=== PATIENT | female | born 1940 | race Caucasian/White ===

== ENCOUNTER 2017-07-26 08:00 | Outpatient (CLI) | payer MEDICARE, OTHER ==
[2017-07-26 14:09] LABS: BASOPHILS % (AUTO) 0.9 %; EOSINOPHILS # (AUTO) 0.1 10^3/uL (0.0-0.7); HGB - HEMOGLOBIN 12.8 g/dL (12.0-16.0); LYMPHOCYTES # (AUTO) 1.6 10^3/uL (1.5-3.5); LYMPHOCYTES % (AUTO) 37.1 %; MEAN CORPUSCULAR HEMOGLOBIN 28.2 pg (27.0-31.0); MEAN CORPUSCULAR HGB CONC 32.8 g/dL (32.0-36.0); MEAN CORPUSCULAR VOLUME 85.9 fL (81.0-99.0); MONOCYTES # (AUTO) 0.4 10^3/uL (0.0-1.0); MONOCYTES % (AUTO) 9.7 %; NEUTROPHILS # (AUTO) 2.2 10^3/uL (1.5-6.6); NEUTROPHILS % (AUTO) 49.3 %; NUCLEATED RED BLOOD CELLS AUTO 0.1 /100WBC; RED BLOOD COUNT 4.54 10^6/uL (4.20-5.40); RED CELL DISTRIBUTION WIDTH 14.2 % (12.0-15.0); UNCORRECTED WHITE BLOOD COUNT 4.4 x10^3/uL; WHITE BLOOD COUNT 4.4 x10^3/uL (4.8-10.8)
[2017-07-26 14:37] LABS: ALBUMIN/GLOBULIN RATIO 1.3 (1.0-2.2); BILIRUBIN,TOTAL 0.7 mg/dL (0.2-1.0); BUN - BLOOD UREA NITROGEN 14 mg/dL (6-20); CALCIUM 9.5 mg/dL (8.5-10.3); CARBON DIOXIDE - CO2 28 mmol/L (21-32); CHLORIDE 102 mmol/L (101-111); CHOL/HDL RATIO 2.8 (<4.4); CHOLESTEROL 209 mg/dL; GFR - MDRD 54 (>89); GLUCOSE 83 mg/dL (70-100); HDL CHOLESTEROL 76 mg/dL; LDL/HDL RATIO 1.5 (<4.4); POTASSIUM 4.1 mmol/L (3.5-5.0); SODIUM 139 mmol/L (135-145); TOTAL PROTEIN 6.9 g/dL (6.7-8.2); TRIGLYCERIDES 94 mg/dL; VLDL CHOLESTEROL 19 mg/dL
== END 2017-07-26 08:01 | disposition home or self-care (01) ==
LOC: LAB.R 08:00
PROVIDERS: ATTEND Internal Medicine
DX: Z79.899 Other long term (current) drug therapy (principal); M19.90 Unspecified osteoarthritis, unspecified site; J44.9 Chronic obstructive pulmonary disease, unspecified; E78.5 Hyperlipidemia, unspecified
CPT/HCPCS: 80053; 80061; 84443; 85025

== ENCOUNTER 2017-08-10 16:11 | Outpatient (CLI) | payer MEDICARE, OTHER ==
--- NOTE | 2017-08-21 13:44 | Mammography Report ---
DIGITAL SCREENING MAMMOGRAM: 08/10/2017 CLINICAL INDICATION: A 77-year-old with history of bilateral benign biopsies, for new baseline. The patient's previous mammograms in [place] have been purged. This will serve as a new baseline. TECHNIQUE: Routine CC and MLO projections were obtained of the breasts. FINDINGS: The breasts demonstrate heterogeneously dense fibroglandular parenchyma bilaterally. Coars e and punctate, typically benign calcifications are present. No suspicious masses, clustered microcal cifications, or regions of architectural distortion are identified. IMPRESSION: BENIGN FINDINGS RECOMMENDATION: ROUTINE ANNUAL SCREENING UNLESS OTHERWISE CLINICALLY INDICATED. BIRADS CATEGORY 2-BENIGN FINDINGS. STANDARD QUALIFYING STATEMENTS 1. This examination was reviewed with the aid of Computer-Aided Detection (CAD). 2. A negative or benign imaging report should not delay biopsy if clinically suspicious findings are present. Consider surgical consultation if warranted. More than 5% of cancers are not identified by i maging. 3. Dense breasts may obscure an underlying neoplasm. JOB #: [id number] EXT JOB #:[id number]
== END 2017-08-10 16:12 | disposition home or self-care (01) ==
LOC: DI 16:11
PROVIDERS: ATTEND Internal Medicine
DX: Z12.31 Encounter for screening mammogram for malignant neoplasm of breast (principal)
CPT/HCPCS: 77067

== ENCOUNTER 2018-04-03 13:45 | Outpatient (CLI) | payer MEDICARE, OTHER ==
[2018-04-03 14:32] LABS: CALCIUM 9.2 mg/dL (8.5-10.3); CREATININE 1.1 mg/dL (0.4-1.0)
== END 2018-04-03 13:46 | disposition home or self-care (01) ==
LOC: LAB 13:45
PROVIDERS: ATTEND Internal Medicine Cardiovascular Disease
DX: R06.02 Shortness of breath (principal); J44.9 Chronic obstructive pulmonary disease, unspecified
CPT/HCPCS: 36415; 80048; 83880

== ENCOUNTER 2018-05-03 14:50 | Outpatient (CLI) | payer MEDICARE, OTHER ==
[2018-05-03 16:21] LABS: BASOPHILS % (AUTO) 0.9 %; EOSINOPHILS % (AUTO) 0.9 %; HGB - HEMOGLOBIN 12.7 g/dL (12.0-16.0); LYMPHOCYTES # (AUTO) 1.2 10^3/uL (1.5-3.5); LYMPHOCYTES % (AUTO) 26.2 %; MEAN CORPUSCULAR HGB CONC 32.7 g/dL (32.0-36.0); MEAN CORPUSCULAR VOLUME 85.8 fL (81.0-99.0); MEAN PLATELET VOLUME 7.6 fL (7.9-10.8); MONOCYTES # (AUTO) 0.4 10^3/uL (0.0-1.0); MONOCYTES % (AUTO) 7.8 %; NEUTROPHILS % (AUTO) 64.2 %; PLT - PLATELET COUNT 269 10^3/uL (130-450); RED BLOOD COUNT 4.54 10^6/uL (4.20-5.40); RED CELL DISTRIBUTION WIDTH 15.5 % (12.0-15.0); WHITE BLOOD COUNT 4.7 x10^3/uL (4.8-10.8)
[2018-05-03 16:30] LABS: ALBUMIN 3.7 g/dL (3.2-5.5); ALBUMIN/GLOBULIN RATIO 1.1 (1.0-2.2); BILIRUBIN,TOTAL 0.8 mg/dL (0.2-1.0); CALCIUM 9.8 mg/dL (8.5-10.3); CREATININE 1.2 mg/dL (0.4-1.0); TOTAL PROTEIN 7.1 g/dL (6.7-8.2)
== END 2018-05-03 14:51 | disposition home or self-care (01) ==
LOC: LAB.R 14:50
PROVIDERS: ATTEND Internal Medicine
DX: R10.13 Epigastric pain (principal)
CPT/HCPCS: 80053; 83690; 85025

== ENCOUNTER 2018-08-13 08:00 | Outpatient (CLI) | payer MEDICARE, OTHER ==
[2018-08-13 13:58] LABS: BASOPHILS % (AUTO) 1.2 %; EOSINOPHILS # (AUTO) 0.1 10^3/uL (0.0-0.7); EOSINOPHILS % (AUTO) 2.1 %; HGB - HEMOGLOBIN 13.2 g/dL (12.0-16.0); LYMPHOCYTES # (AUTO) 1.3 10^3/uL (1.5-3.5); LYMPHOCYTES % (AUTO) 31.1 %; MEAN CORPUSCULAR HEMOGLOBIN 28.7 pg (27.0-31.0); MEAN CORPUSCULAR HGB CONC 33.3 g/dL (32.0-36.0); MEAN PLATELET VOLUME 7.7 fL (7.9-10.8); MONOCYTES # (AUTO) 0.4 10^3/uL (0.0-1.0); MONOCYTES % (AUTO) 8.9 %; NEUTROPHILS # (AUTO) 2.3 10^3/uL (1.5-6.6); NEUTROPHILS % (AUTO) 56.7 %; PLT - PLATELET COUNT 241 10^3/uL (130-450); RED CELL DISTRIBUTION WIDTH 15.3 % (12.0-15.0); WHITE BLOOD COUNT 4.1 x10^3/uL (4.8-10.8)
[2018-08-13 14:13] LABS: ALBUMIN 3.9 g/dL (3.2-5.5); ALBUMIN/GLOBULIN RATIO 1.3 (1.0-2.2); ALKALINE PHOSPHATASE 54 IU/L (42-121); ALT ALANINE AMINOTRANSFERASE 26 IU/L (10-60); AST ASPARTATE AMINOTRANSFERASE 22 IU/L (10-42); BILIRUBIN,TOTAL 0.9 mg/dL (0.2-1.0); BUN - BLOOD UREA NITROGEN 12 mg/dL (6-20); CALCIUM 9.1 mg/dL (8.5-10.3); CARBON DIOXIDE - CO2 29 mmol/L (21-32); CHLORIDE 98 mmol/L (101-111); CHOL/HDL RATIO 2.8 (<4.4); CHOLESTEROL 215 mg/dL; CREATININE 0.9 mg/dL (0.4-1.0); GFR - MDRD 60 (>89); GLUCOSE 83 mg/dL (70-100); HDL CHOLESTEROL 78 mg/dL; LDL CHOLESTEROL,CALCULATED 120 mg/dL; LDL/HDL RATIO 1.5 (<4.4); SODIUM 134 mmol/L (135-145); VLDL CHOLESTEROL 17 mg/dL
== END 2018-08-13 08:01 | disposition home or self-care (01) ==
LOC: LAB.R 08:00
PROVIDERS: ATTEND Nurse Practitioner Primary Care
DX: Z79.899 Other long term (current) drug therapy (principal); M25.50 Pain in unspecified joint; E78.5 Hyperlipidemia, unspecified
CPT/HCPCS: 80053; 80061; 83721; 84443; 85025

== ENCOUNTER 2018-10-16 10:04 | Outpatient (CLI) | payer MEDICARE, OTHER ==
[2018-10-16 11:10] LABS: ALBUMIN 4.2 g/dL (3.2-5.5); ALBUMIN/GLOBULIN RATIO 1.4 (1.0-2.2); ALKALINE PHOSPHATASE 60 IU/L (42-121); ALT ALANINE AMINOTRANSFERASE 32 IU/L (10-60); AST ASPARTATE AMINOTRANSFERASE 32 IU/L (10-42); BUN - BLOOD UREA NITROGEN 17 mg/dL (6-20); CALCIUM 9.3 mg/dL (8.5-10.3); CARBON DIOXIDE - CO2 29 mmol/L (21-32); CHLORIDE 96 mmol/L (101-111); CHOL/HDL RATIO 2.5 (<4.4); CHOLESTEROL 205 mg/dL; GFR - MDRD 53 (>89); GLUCOSE 103 mg/dL (70-100); HDL CHOLESTEROL 83 mg/dL; LDL CHOLESTEROL,CALCULATED 106 mg/dL; LDL/HDL RATIO 1.3 (<4.4); SODIUM 133 mmol/L (135-145); TOTAL PROTEIN 7.2 g/dL (6.7-8.2); VLDL CHOLESTEROL 16 mg/dL
== END 2018-10-16 10:05 | disposition home or self-care (01) ==
LOC: LAB 10:04
PROVIDERS: ATTEND Internal Medicine Cardiovascular Disease
DX: I50.32 Chronic diastolic (congestive) heart failure (principal); E78.5 Hyperlipidemia, unspecified
CPT/HCPCS: 36415; 80053; 80061; 81599; 82172; 83721; 83880

== ENCOUNTER 2018-11-08 14:20 | Outpatient (CLI) | payer MEDICARE, OTHER ==
[2018-11-08 14:56] LABS: BUN - BLOOD UREA NITROGEN 12 mg/dL (6-20); CALCIUM 9.3 mg/dL (8.5-10.3); CARBON DIOXIDE - CO2 26 mmol/L (21-32); CHLORIDE 99 mmol/L (101-111); CHOL/HDL RATIO 2.4 (<4.4); CHOLESTEROL 217 mg/dL; GFR - MDRD 53 (>89); GLUCOSE 124 mg/dL (70-100); HDL CHOLESTEROL 92 mg/dL; LDL CHOLESTEROL,CALCULATED 100 mg/dL; LDL/HDL RATIO 1.1 (<4.4); SODIUM 134 mmol/L (135-145); VLDL CHOLESTEROL 25 mg/dL
== END 2018-11-08 14:21 | disposition home or self-care (01) ==
LOC: LAB 14:20
PROVIDERS: ATTEND Internal Medicine Cardiovascular Disease
DX: I50.32 Chronic diastolic (congestive) heart failure (principal); E78.5 Hyperlipidemia, unspecified
CPT/HCPCS: 36415; 80048; 80061; 81599; 82172; 83721; 83880

== ENCOUNTER 2019-04-02 13:08 | Outpatient (CLI) | payer MEDICARE, OTHER ==
--- NOTE | 2019-04-03 15:19 | Mammography Report ---
Reason: SCREENING MAMMOGRAM Procedure Date: 04/02/2019 Accession Number: [id number] / [id number] Procedure: ROHIT - Screening Mammo w/Syd CPT Code: FULL RESULT: EXAM: Screening Mammo w/Syd DATE: 04/02/2019 1:47 PM CLINICAL HISTORY: Routine screening TECHNIQUE: (B) - Bilateral CC and MLO views were obtained. COMPARISON: 08/10/2017 PARENCHYMAL PATTERN: (VD) - The breasts demonstrate extremely dense parenchyma bilaterally, limiting the sensitivity of mammography. FINDINGS: No significant interval change. There are no suspicious masses, calcifications, or areas of distortion. Scattered benign calcifications are unchanged. IMPRESSION: Negative examination. BI-RADS category 1. RECOMMENDATION: (ANNUAL) - Recommend routine annual screening mammography. BI-RADS CATEGORY: (1) - Negative. STANDARD QUALIFYING STATEMENTS: 1. This examination was not reviewed with the aid of Computer-Aided Detection (CAD). 2. A negative or benign imaging report should not preclude biopsy if clinically suspicious findings are present. 3. Dense breasts may obscure an underlying neoplasm. 4. This examination was reviewed with the aid of 3D breast imaging (tomosynthesis).
== END 2019-04-02 13:09 | disposition home or self-care (01) ==
LOC: DI 13:08
PROVIDERS: ATTEND Internal Medicine
DX: Z12.31 Encounter for screening mammogram for malignant neoplasm of breast (principal)
CPT/HCPCS: 77063; 77067

== ENCOUNTER 2019-07-05 05:48 | Emergency (ER) | payer MEDICARE, OTHER ==
--- NOTE | 2019-07-05 05:57 | ED Physician Documentation ---
History of Present Illness - Stated complaint Stated Complaint: FACIAL SWELLING - History obtained from History obtained from: Patient - History of Present Illness Timing: Yesterday Improved by: no ameliorating factors Worsened by: no clear exacerbating factors, although patient suspects her symptoms are due to a reaction to vaseline she has been applying topically - Additonal information Additional information: patient underwent facial cosmetic surgery 2 days ago which, per patient, involved face lift and chemical laser peel. presents to ED due to painless swelling of lips and around both eyes since yesterday afternoon. patient was prescribed several oral and topical medications post-operatively; she does not know if she has taken/applied any of these medications before. she is adamant that the swelling is due to topical application of vaseline. she denies any sensation of swelling in mouth including tongue and throat. denies dyspnea. she says she had similar problem with previous facial cosmetic surgery but has no recollection regarding how this was treated (including cannot recall if she was seen in an emergency department, if she was admitted to a hospital, and if she was given any medical treatment or attention for the symptoms). Review of Systems Constitutional: reports: Reviewed and negative Eyes: reports: Reviewed and negative Ears: reports: Reviewed and negative Throat: denies: Sore throat Respiratory: reports: Reviewed and negative GI: reports: Reviewed and negative PD PAST MEDICAL HISTORY - Past Medical History Cardiovascular: High cholesterol Respiratory: COPD - Past Surgical History /OPHTHALMIC AIDE: Hysterectomy - Present Medications Home Medications: Ambulatory Orders Medication Instructions Recorded Confirmed Atorvastatin Calcium [Lipitor] 40 mg PO DAILY 10/09/14 10/09/14 dexAMETHasone [Decadron] 4 mg PO DAILY #5 tablet 10/10/14 traMADol [Ultram] 50 mg PO Q4-6H PRN #25 tablet 10/10/14 - Allergies Allergies/Adverse Reactions: Allergies Allergy/AdvReac Type Severity Reaction Status Date / Time No Known Drug Allergies Allergy Verified 07/05/19 05:59 - Social History Does the pt smoke?: No Smoking Status: Never smoker Does the pt drink ETOH?: No Does the pt have substance abuse?: No - Immunizations Immunizations are current?: Yes PD ED PE NORMAL - Vitals Vital signs reviewed: Yes - General General: Alert and oriented X 3, No acute distress, Well developed/nourished - HEENT HEENT: Moist mucous membranes, Pharynx benign, Other (widely patent airway without edema/swelling of tongue or oropharynx except for lips) - Cardiac Cardiac: RRR, No murmur - Respiratory Respiratory: No respiratory distress, Clear bilaterally PD ED PE EXPANDED - HEENT HEENT: Other (Bilateral pre/post auricular incision (surgical) sites are C/D/I with sutures in place and wound edges well approximated. No surrounding erythema, no discharge. There is generalized and diffuse facial erythema that is flat, c/w recent facial chemical peel procedure. There is moderate swelling of lips and bilateral periorbits ) Results - Vitals Vitals: Vital Signs - 24 hr 07/05/19 07/05/19 07/05/19 05:54 05:59 06:47 Temperature 36.7 C Heart Rate 77 70 72 Respiratory 17 17 17 Rate Blood Pressure 180/98 H O2 Saturation 94 95 96 Oxygen O2 Source Room air PD MEDICAL DECISION MAKING - ED course Complexity details: considered differential, d/w patient ED course: Patient had face lift and chemical laser peel (per patient) two days ago, presents due to swelling of lips and bilateral periorbits. Denies dyspnea, wheezing, sensation of tongue or intraoral/posterior oropharynx (throat) constriction/tightness/swelling. Exam is not s/o infectious complications. I explained to patient that I will contact her plastic surgeon to discuss treatment options. She was initially agreeable to this and I contacted the after-hours service for her surgeon and was told to expect a response within no more than 30 minutes. Patient was updated with this information and she insisted on leaving immediately and would not engage in discussion regarding risks/benefits of leaving before completion of ED evaluation and treatment. Departure - Departure Disposition: 07 Against Medical Advice Clinical Impression: Allergic reaction Qualifiers: Encounter type: initial encounter Qualified Code(s): T78.40XA - Allergy, unspecified, initial encounter Condition: Stable Instructions: ED Allergic Reaction General Other, ED Angioedema Discharge Date/Time: 07/05/19 07:08
[2019-07-05 05:59] VITALS: BP 180/98
== END 2019-07-05 07:08 | disposition left against medical advice (07) ==
LOC: ED 05:48
DX: T78.40XA Allergy, unspecified, initial encounter (principal); Z53.20 Procedure and treatment not carried out because of patient's decision for unspecified reasons
CPT/HCPCS: 99281; 99283

== ENCOUNTER 2019-12-31 08:08 | Emergency (ER) | payer MEDICARE, OTHER ==
[2019-12-31 08:18] VITALS: BP 165/92
--- NOTE | 2019-12-31 08:37 | ED Physician Documentation ---
PD HPI OPHTHO - Stated complaint Stated Complaint: VISION CHGS - Chief complaint Chief Complaint: Heent - History obtained from History obtained from: Patient - History of Present Illness Timing - onset: Today Timing - duration: Minutes (1) Timing - details: Abrupt onset Location: Right Quality / character: Aching Associated symptoms: Decreased vision (She states she had a brief episode of slightly blurred vision with a feeling of pressure in her eye this morning lasting just a minute or 2. She denied any loss of vision in any consistent pain or headache. She is recently diagnosed with a TIA to 3 weeks ago with loss of vision in one eye for 5 or 10 minutes. She had a work-up showing a 80% carotid stenosis and is due for a carotid artery stent this coming Monday. She is started on Plavix 2-1/2 weeks ago. She was seen by an home designer yesterday with eye evaluation including dilatation and reportedly had a normal exam. She was feeling okay after that visit and just noticed some slight blurring of the vision this morning. No other symptoms with it.). No: Redness, Swelling, Photophobia, Double vision, Loss of vision Similar symptoms before: Has not had sx before (had loss of vision briefly in eye previously, but not just the blurred like today.) Review of Systems Eyes: reports: Decreased vision, Discharge. denies: Loss of vision, Photophobia Nose: denies: Rhinorrhea / runny nose, Congestion Throat: denies: Sore throat Respiratory: denies: Cough Neurologic: denies: Focal weakness, Numbness, Difficulty speaking, Near syncope, Confused, Altered mental status, Headache PD PAST MEDICAL HISTORY - Past Medical History Past Medical History: Yes Cardiovascular: High cholesterol Respiratory: COPD Neuro: TIA Endocrine/Autoimmune: None GI: None SURVEY METHODOLOGIST: None : None HEENT: None Psych: None Musculoskeletal: None Derm: None Other Past Medical History: carotid stenosis - Past Surgical History Past Surgical History: Yes /SURVEY METHODOLOGIST: Hysterectomy - Present Medications Home Medications: Ambulatory Orders Medication Instructions Recorded Confirmed Atorvastatin Calcium [Lipitor] 40 mg PO DAILY 10/09/14 10/09/14 dexAMETHasone [Decadron] 4 mg PO DAILY #5 tablet 10/10/14 traMADol [Ultram] 50 mg PO Q4-6H PRN #25 tablet 10/10/14 - Allergies Allergies/Adverse Reactions: Allergies Allergy/AdvReac Type Severity Reaction Status Date / Time No Known Drug Allergies Allergy Verified 12/31/19 08:12 - Social History Does the pt smoke?: No Smoking Status: Never smoker Does the pt drink ETOH?: No Does the pt have substance abuse?: No - Immunizations Immunizations are current?: Yes - POLST Patient has POLST: No PD ED PE NORMAL - Vitals Vital signs reviewed: Yes - General General: Alert and oriented X 3, No acute distress, Well developed/nourished - HEENT HEENT: PERRL, EOMI, Other (anterior and posterior chambers appear normal on ophthalmologic exam. IOP is 12. 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 eye appears normal. no other neuro symptoms. Presume eye process. IOP is normal. Normal posterior chamber. ), d/w patient Departure - Departure Disposition: Home, Self Care Clinical Impression: Visual disturbance Condition: Stable Record reviewed to determine appropriate education?: Yes Follow-Up: Katerina Sarah MD [Primary Care Provider] - Comments: Your eye exam including intraocular pressures appear normal at this time. It does not seem to be any significant cause for the eye symptoms earlier today. Continue usual medications. Stay well-hydrated. Recheck if recurrent symptoms otherwise follow-up as planned this Monday. Discharge Date/Time: 12/31/19 09:03
== END 2019-12-31 09:03 | disposition home or self-care (01) ==
LOC: ED 08:08
DX: H53.8 Other visual disturbances (principal); I65.29 Occlusion and stenosis of unspecified carotid artery; Z86.73 Personal history of transient ischemic attack (TIA), and cerebral infarction without residual deficits; Z79.02 Long term (current) use of antithrombotics/antiplatelets
CPT/HCPCS: 99281; 99282

== ENCOUNTER 2020-05-14 12:00 | Outpatient (CLI) | payer MEDICARE, OTHER ==
[2020-05-14] MEDS ORDERED: IOVERSOL 320 100 ML VIAL IVP ONE ×2 (12:10→13:24)
[2020-05-14 12:34] LABS: CREATININE 1.2 mg/dL (0.4-1.0)
--- NOTE | 2020-05-14 13:45 | CT Report ---
PROCEDURE: ANGIO CHEST W/WO INDICATIONS: PLEURIRIC CHEST PAIN CONTRAST: IV CONTRAST: Optiray 320 ml: 61 PO CONTRAST: *NO PO CONTRAST TECHNIQUE: After the administration of intravenous contrast, 2 mm thick sections acquired from the pulmonary api darnell to the posterior costophrenic angles. 3-dimensional maximum intensity projection (MIP) coronal a nd sagittal reformats were then acquired through the thorax. For radiation dose reduction, the follow ing was used: automated exposure control, adjustment of mA and/or kV according to patient size. COMPARISON: CT chest 04/30/2018, 03/25/2019, 01/31/2020, 04/27/2020 FINDINGS: Image quality: Excellent. The main pulmonary trunk is normal in size. There is no pulmonary embolism. The heart is normal in size. There is no pericardial effusion. No findings of right heart strain. The re is four-vessel calcified coronary atherosclerosis with noncalcified plaque present as well. Nonaneurysmal thoracic aorta with diffuse atherosclerotic calcification. No threshold enlarged thoracic lymph node by CT size criteria. Moderate apical predominant centrilobular and paraseptal emphysematous changes are again noted. No si gnificant change in appearance of suspicious spiculated right upper lobe nodule with surrounding grou ndglass opacity. Scattered calcified granulomata are also unchanged. New from the prior study, there is a mildly displaced rib fracture on the left anteriorly, correspond ing in location to the patient's reported palpable area of chest pain. There is a small surrounding h ematoma. There is no other acute osseous lesion. No suspicious or lytic/blastic osseous finding. Limited evaluation of the upper abdomen due to the early angiographic phase of contrast. No acute fin ding identified. IMPRESSION: No pulmonary embolism. Mildly displaced anterior left rib fracture with adjacent hematoma. Unchanged suspicious right upper lobe nodule. Biopsy recommended if not already performed. Reviewed by: Favio Olson MD on 05/14/2020 1:44 PM PDT Approved by: Favio Olson MD on 05/14/2020 1:44 PM PDT Station ID: [id number]
== END 2020-05-14 12:01 | disposition home or self-care (01) ==
LOC: DI 12:00
PROVIDERS: ATTEND Internal Medicine
DX: R07.81 Pleurodynia (principal); R06.00 Dyspnea, unspecified; S22.32XA Fracture of one rib, left side, initial encounter for closed fracture; R91.1 Solitary pulmonary nodule
CPT/HCPCS: 36415; 71275; 82565; Q9967

== ENCOUNTER 2020-06-09 15:49 | Outpatient (CLI) | payer MEDICARE, OTHER ==
[2020-06-09 16:15] LABS: CALCIUM 9.4 mg/dL (8.5-10.3); CREATININE 1.5 mg/dL (0.4-1.0)
--- NOTE | 2020-06-09 17:49 | CT Report ---
PROCEDURE: CHEST WO INDICATIONS: PULMONARY NODULE TECHNIQUE: Noncontrast 5 mm thick sections acquired from the pulmonary apices to the posterior costophrenic angl es. 7 mm thick coronal and sagittal MIP reformats were then acquired. For radiation dose reduction, the following was used: automated exposure control, adjustment of mA and/or kV according to patient size. COMPARISON: Prior CT chest angiogram 05/14/2020 reviewed FINDINGS: Image quality: Excellent. Lungs and pleura: No acute air space opacities. However, again noted at the anterior left upper lob e is a spiculated masslike structure present in the setting of severe emphysematous change and within appearance suggestive of a primary bronchogenic carcinoma. This is best seen on current study imagin g CT series 4 image 94 and also on the prior CT imaging CT series 6 image 90. More inferiorly within the right mid lung are several calcified granulomas within the No pleural effusions or pneumothorax. Central and peripheral airways are patent and normal in caliber. Mediastinum: Heart size is normal. No pericardial effusion. No mediastinal adenopathy by size crit eria. Thoracic aorta and central pulmonary arteries are normal in size. Esophagus is normal in sharif teofilo. No hiatal hernia. Several right hilar calcified lymph nodes incidentally noted in the setting of calcified granulomas within the right lung. Bones and chest wall: No suspicious bony lesions. No vertebral body compression fractures. No axil rosanna or supraclavicular adenopathy by size criteria. The thyroid is normal in size. Abdomen: Visualized upper abdominal solid organs and bowel loops appear normal in the absence of con trast. IMPRESSION: Severe emphysematous exchange mechanic the lungs, spiculated lung mass again seen at the anterior left uppe r lobe without definite enlargement over the short interval from 05/14/2022 this examination. 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 Nuclear medicine PET/CT scanning may be the appropriate next step. Several calcified granulomas are present within the right lower lobe, near the major fissure. These a re benign in appearance. Several calcified lymph nodes are seen at the right hilum as expected in thi s clinical circumstance. Reviewed by: Miguel Domingo MD on 06/09/2020 5:47 PM PDT Approved by: Miguel Domingo MD on 06/09/2020 5:47 PM PDT Station ID: [id number]
== END 2020-06-09 15:50 | disposition home or self-care (01) ==
LOC: DI 15:49
PROVIDERS: ATTEND Internal Medicine Critical Care Medicine
DX: R91.8 Other nonspecific abnormal finding of lung field (principal); J43.9 Emphysema, unspecified; I50.32 Chronic diastolic (congestive) heart failure
CPT/HCPCS: 71250; 80048; 83880

== ENCOUNTER 2020-06-26 09:46 | Outpatient (CLI) | payer MEDICARE, OTHER ==
--- NOTE | 2020-06-26 13:16 | DEXA Report ---
PROCEDURE: Dexa Spine and/or Hip INDICATIONS: BONE DISORDER TECHNIQUE: Dual energy x-ray absorptiometry (DXA) was performed on a Mofib[employer] System. Regions measur ed are the AP Spine, femoral neck, and if needed forearm. COMPARISON: None. FINDINGS: Lumbar Spine: Bone Mineral Density 0.876 g/cm/cm,T score -2.5. Left Hip: Bone Mineral Density 0.764 g/cm/cm,T score -1.9, Left Femoral Neck: Bone Mineral Density 0.638 g/cm/cm, T score -2.9, (T score greater or equal to -1.0: NORMAL) (T score from -1.1 to -2.4: OSTEOPENIA) (T score less than or equal to -2.5 to: OSTEOPOROSIS) Impression: Osteoporosis. Patients with diagnosis of osteoporosis or osteopenia should have regular bone mineral density assess ment. For those eligible for Medicare, routine testing is allowed once every 2 years. Testing frequ ency can be increased for patients who have rapidly progressing disease or for those who are receivin g medical therapy to restore bone mass. Reviewed by: Tj Michel MD on 06/26/2020 1:15 PM PDT Approved by: Tj Michel MD on 06/26/2020 1:15 PM PDT Station ID: [id number]
== END 2020-06-26 09:47 | disposition home or self-care (01) ==
LOC: DI 09:46
PROVIDERS: ATTEND Internal Medicine
DX: Z13.820 Encounter for screening for osteoporosis (principal); M81.0 Age-related osteoporosis without current pathological fracture
CPT/HCPCS: 77080

== ENCOUNTER 2020-11-26 08:00 | Outpatient (CLI) | payer MEDICARE, OTHER ==
[2020-11-26 16:53] LABS: ALBUMIN 4.2 g/dL (3.2-5.5); ALBUMIN/GLOBULIN RATIO 1.4 (1.0-2.2); ALKALINE PHOSPHATASE 49 IU/L (42-121); ALT ALANINE AMINOTRANSFERASE 27 IU/L (10-60); AST ASPARTATE AMINOTRANSFERASE 29 IU/L (10-42); BILIRUBIN,TOTAL 0.8 mg/dL (0.2-1.0); BUN - BLOOD UREA NITROGEN 33 mg/dL (6-20); CALCIUM 10.1 mg/dL (8.5-10.3); CARBON DIOXIDE - CO2 29 mmol/L (21-32); CHLORIDE 96 mmol/L (101-111); CHOL/HDL RATIO 1.9 (<4.4); CHOLESTEROL 161 mg/dL; CREATININE 1.3 mg/dL (0.4-1.0); GLUCOSE 99 mg/dL (70-100); HDL CHOLESTEROL 83 mg/dL; LDL CHOLESTEROL,CALCULATED 65 mg/dL; LDL/HDL RATIO 0.8 (<4.4); TOTAL PROTEIN 7.1 g/dL (6.7-8.2); VLDL CHOLESTEROL 13 mg/dL
== END 2020-11-26 23:59 | disposition home or self-care (01) ==
LOC: LAB 08:00
PROVIDERS: ATTEND Internal Medicine Cardiovascular Disease
DX: E78.5 Hyperlipidemia, unspecified (principal); I50.32 Chronic diastolic (congestive) heart failure
CPT/HCPCS: 36415; 80053; 80061; 81599; 82172; 83721; 83880

== ENCOUNTER 2020-12-21 16:30 | Outpatient (CLI) | payer MEDICARE, OTHER ==
--- NOTE | 2020-12-21 16:58 | XRAY Report ---
PROCEDURE: Chest 2 View X-Ray INDICATIONS: COUGH TECHNIQUE: 2 view(s) of the chest. COMPARISON: None. FINDINGS: Surgical changes and devices: Chest CT 06/09/2020 performed without contrast.. Lungs and pleura: No pleural effusions or pneumothorax. Lungs are clear but the lung volumes are la rge. 2 calcified granulomas are seen adjacent to the pleural surface at the mid chest level on the ri ght.. Mediastinum: Mediastinal contours are normal. Heart size is normal. Bones and chest wall: No suspicious bony abnormalities. Soft tissues appear unremarkable. IMPRESSION: The lung volumes are somewhat large, it is possible that this represents a aggressive in spiratory effort but COPD also should be considered. No pneumonia or neoplasm is seen. 2 right latera l mid chest calcified granulomas are incidentally noted, previously present on CT scanning. Reviewed by: Miguel Domingo MD on 12/21/2020 4:57 PM PST Approved by: Miguel Domigno MD on 12/21/2020 4:57 PM PST Station ID: [id number]
== END 2020-12-21 16:31 | disposition home or self-care (01) ==
LOC: DI 16:30
PROVIDERS: ATTEND Internal Medicine
DX: R05 Cough (principal)

== ENCOUNTER 2022-01-07 07:00 | Outpatient (CLI) | payer MEDICARE, OTHER ==
[2022-01-07 16:48] LABS: BILIRUBIN,URINE NEGATIVE (NEGATIVE); GLUCOSE, URINE (UA) NEGATIVE (NEGATIVE); KETONES,URINE (UA) NEGATIVE (NEGATIVE); LEUKOCYTE ESTERASE, URINE NEGATIVE (NEGATIVE); NITRITE,URINE NEGATIVE (NEGATIVE); OCCULT BLOOD,URINE NEGATIVE (NEGATIVE); PROTEIN,URINE NEGATIVE (NEGATIVE); UROBILINOGEN,URINE 0.2 (NORMAL) E.U./dL (NORMAL)
[2022-01-07 16:54] LABS: CLARITY,URINE CLEAR (CLEAR)
[2022-01-07 17:23] LABS: THYROID STIMULATING HORMONE 4.63 uIU/mL (0.34-5.60)
== END 2022-01-07 23:59 | disposition home or self-care (01) ==
LOC: LAB.R 07:00
PROVIDERS: ATTEND Internal Medicine
DX: R41.0 Disorientation, unspecified (principal); R55 Syncope and collapse
CPT/HCPCS: 81001; 81003; 81599; 82607; 84443; 86780; 87086

== ENCOUNTER 2022-01-14 12:26 | Outpatient (CLI) | payer MEDICARE, OTHER ==
--- NOTE | 2022-01-14 14:32 | CT Report ---
PROCEDURE: HEAD WO INDICATIONS: Loss of consciousness TECHNIQUE: Noncontrast 4.5 mm thick angled axial sections acquired from the foramen magnum to the vertex. For r adiation dose reduction, the following was used: automated exposure control, adjustment of mA and/or kV according to patient size. COMPARISON: None. FINDINGS: Image quality: Excellent. CSF spaces: Basal cisterns are patent. No extra-axial fluid collections. Ventricles are normal in size and shape. Brain: No midline shift. No intracranial masses or hemorrhage. Mendez-white matter interface is norm al. Skull and face: Calvarium and visualized facial bones are intact, without suspicious lesions. Sinuses: Visualized sinuses and mastoids are clear. IMPRESSION: No acute intracranial finding. Reviewed by: Favio Olson MD on 01/14/2022 2:[address] [facility] Approved by: Favio Olson MD on 01/14/2022 2:[address] [facility] Station ID: [id number]
== END 2022-01-14 12:27 | disposition home or self-care (01) ==
LOC: DI 12:26
PROVIDERS: ATTEND Internal Medicine
DX: R55 Syncope and collapse (principal)

== ENCOUNTER 2022-01-16 09:31 | Outpatient (CLI) | payer MEDICARE, OTHER | END 2022-01-16 09:32 | disposition short-term general hospital (02) | LOC: EMS 09:31 | DX: M54.50 Low back pain, unspecified (principal) | CPT/HCPCS: A0425; A0429; A0888 ==

== ENCOUNTER 2022-01-31 14:41 | Outpatient (CLI) | payer MEDICARE, OTHER ==
[2022-01-31 15:03] LABS: CALCIUM 9.1 mg/dL (8.5-10.3); CREATININE 1.2 mg/dL (0.4-1.0)
== END 2022-01-31 14:42 | disposition home or self-care (01) ==
LOC: LAB 14:41
PROVIDERS: ATTEND Internal Medicine Cardiovascular Disease
DX: I50.32 Chronic diastolic (congestive) heart failure (principal); E87.6 Hypokalemia
CPT/HCPCS: 36415; 80048; 83880

== ENCOUNTER 2022-05-12 11:06 | Emergency (ER) | payer MEDICARE, OTHER ==
--- OUTSIDE RECORDS SUMMARY | 2022-05-12 11:32 | EXTERNAL MEDICAL SUMMARY RPT | Continuity of Care Document ---
:1940 Author Organization [facility] Address [address] [place] [address] Phone Allergies No information. Encounters No information. Functional Status No information. Immunizations No information. Medications No information. Problems No information. Procedures date description facility Diagnosis [facility] [id number] Finding [facility] [id number] General Physician [facility] Results/Labs test date author facility value unit interpret ation Result panel 1 (unknown) (no (unknown) (unknown) (no value) (units (unk nown) date) unknown) (unknown) (no (unknown) (unknown) (no value) (units (unk nown) date) unknown) (unknown) (no (unknown) (unknown) [place], [place] (units ( unknown) date) [id number] unknown) (unknown) (no (unknown) (unknown) Draft (units (unkno wn) date) unknown) (unknown) (no (unknown) (unknown) Pain Visit (units (unk nown) date) unknown) (unknown) (no (unknown) (unknown) [facility] unknown) (unknown) (no (unknown) (unknown) (no value) (units (unk nown) date) unknown) (unknown) (no (unknown) (unknown) (PreserVision (units ( unknown) date) Lutein) 1 cap PO unknown) DAILY 01/06/20 [History Confirmed 03/21/22] (unknown) (no (unknown) (unknown) 03/21/22 (units (unkno wn) date) unknown) (unknown) (no (unknown) (unknown) 03/21/22] (units (unkn own) date) unknown) (unknown) (no (unknown) (unknown) 961 (units (unkno wn) date) unknown) (unknown) (no (unknown) (unknown) Accompanied by: (units (unknown) date) Self / Same As unknown) Patient (unknown) (no (unknown) (unknown) Age/Sex: 81 / F (units (unknown) date) Date of unknown) Service: (unknown) (no (unknown) (unknown) Allergies (units (unkn own) date) unknown) (unknown) (no (unknown) (unknown) Amaurosis fugax, (units (unknown) date) right eye unknown) (unknown) (no (unknown) (unknown) Anemia (units (unkno wn) date) unknown) (unknown) (no (unknown) (unknown) Attending Dr: (units ( unknown) date) Shaji Blum unknown) D.O. (unknown) (no (unknown) (unknown) COPD (chronic (units ( unknown) date) obstructive unknown) pulmonary disease) (unknown) (no (unknown) (unknown) Confirmed (units (unkn own) date) 03/21/22] unknown) (unknown) (no (unknown) (unknown) Congestive heart (units (unknown) date) failure unknown) (unknown) (no (unknown) (unknown) : 1940 (units (unknown) date) Acct:[id number] unknown) (unknown) (no (unknown) (unknown) Dept at (units (unkno wn) date) . unknown) (unknown) (no (unknown) (unknown) Documented By: (units (unknown) date) Shaji Blum unknown) D.O. 03/21/22 1454 (unknown) (no (unknown) (unknown) Facet (units (unkno wn) date) arthropathy, unknown) lumbar (unknown) (no (unknown) (unknown) HERE FOR POST (units ( unknown) date) LUMBAR AREA unknown) (unknown) (no (unknown) (unknown) History of (units (unk nown) date) carotid unknown) endarterectomy (unknown) (no (unknown) (unknown) History of (units (unk nown) date) tobacco use unknown) (unknown) (no (unknown) (unknown) Intake (units (unkno wn) date) unknown) (unknown) (no (unknown) (unknown) Intake Clinical (units (unknown) date) Staff unknown) (unknown) (no (unknown) (unknown) Intake Note: (units (u nknown) date) unknown) (unknown) (no (unknown) (unknown) Intake performed (units (unknown) date) by: Suzanne Orourke unknown) (unknown) (no (unknown) (unknown) Is patient in (units ( unknown) date) pain?: Yes (HERE unknown) FOR POST LUMBAR AREA) Pain scale (1-10): 3 (unknown) (no (unknown) (unknown) Loc: PAIN (units (unkn own) date) unknown) (unknown) (no (unknown) (unknown) Lumbosacral (units (un known) date) radiculopathy at unknown) L5 (unknown) (no (unknown) (unknown) Medical History (units (unknown) date) (Reviewed unknown) 01/19/22 @ 14:32 by Shaji Blum DO) (unknown) (no (unknown) (unknown) Medications (units (un known) date) unknown) (unknown) (no (unknown) (unknown) PFSH (units (unkno wn) date) unknown) (unknown) (no (unknown) (unknown) Pain Scale (units (unk nown) date) unknown) (unknown) (no (unknown) (unknown) Patient: Chandan Parker (units (unknown) date) [facility] MR#: unknown) [id number] (unknown) (no (unknown) (unknown) Reason For Visit (units (unknown) date) unknown) (unknown) (no (unknown) (unknown) Signed By: (units (unk nown) date) unknown) (unknown) (no (unknown) (unknown) Smoking Status: (units (unknown) date) Former smoker unknown) (unknown) (no (unknown) (unknown) Surgical History (units (unknown) date) (Reviewed unknown) 01/19/22 @ 14:32 by Shaji Blum DO) (unknown) (no (unknown) (unknown) This note may (units ( unknown) date) have been all or unknown) partially generated using voice recognition (unknown) (no (unknown) (unknown) Tobacco + (units (unkn own) date) Substance Use unknown) (unknown) (no (unknown) (unknown) Tobacco Status (units (unknown) date) unknown) (unknown) (no (unknown) (unknown) Visit Reasons: (units (unknown) date) 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 , 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 (unknown) (no (unknown) (unknown) Vitamin D3 1 cap (units (unknown) date) PO DAILY 01/06/20 unknown) [History Confirmed 03/21/22] (unknown) (no (unknown) (unknown) acetaminophen (units ( unknown) date) 325 mg tablet 650 unknown) mg PO Q4H PRN 01/06/20 [History Confirmed (unknown) (no (unknown) (unknown) alendronate 70 (units (unknown) date) mg tablet 70 mg unknown) PO QWEEK 11/15/21 [History Confirmed 03/21/22] (unknown) (no (unknown) (unknown) aspirin 81 mg (units ( unknown) date) tablet,delayed unknown) release 81 mg PO DAILY 01/06/20 [History Confirmed (unknown) (no (unknown) (unknown) docusate sodium (units (unknown) date) 100 mg capsule unknown) (Colace) 100 mg PO DAILY #20 cap 01/16/22 [Rx (unknown) (no (unknown) (unknown) ezetimibe 10 mg (units (unknown) date) tablet 10 mg PO unknown) DAILY 01/06/20 [History Confirmed 03/21/22] (unknown) (no (unknown) (unknown) fluticasone-umec (units (unknown) date) lidin-vilanter unknown) [Trelegy Ellipta] INHALATION 11/15/21 [History (unknown) (no (unknown) (unknown) gabapentin (units (unk nown) date) Adverse Reaction unknown) (Intermediate, Verified 03/21/22 14:57) (unknown) (no (unknown) (unknown) have occurred. (units (unknown) date) If there are any unknown) questions, please contact the Medical Records (unknown) (no (unknown) (unknown) may occur. (units (unk nown) date) Occasional unknown) wrong-word or 'sound-alike' substitutions may have (unknown) (no (unknown) (unknown) occurred due to (units (unknown) date) the inherent unknown) limitations of voice recognition software. Please (unknown) (no (unknown) (unknown) read the note (units ( unknown) date) carefully and unknown) recognize, using context, where these substitutions (unknown) (no (unknown) (unknown) rosuvastatin 20 (units (unknown) date) mg tablet 20 mg unknown) PO DAILY 01/06/20 [History Confirmed 03/21/22] (unknown) (no (unknown) (unknown) sennosides 8.6 (units (unknown) date) mg capsule unknown) (senna) 8.6 mg PO DAILY PRN #20 cap 01/16/22 [Rx (unknown) (no (unknown) (unknown) software. 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 (unknown) (no (unknown) (unknown) spironolactone 25 (units (unknown) date) mg tablet 25 mg unknown) PO DAILY 01/06/20 [History Confirmed 03/21/22] (unknown) (no (unknown) (unknown) torsemide 10 mg (units (unknown) date) tablet 10 mg PO unknown) DAILY 11/15/21 [History Confirmed 03/21/22] (unknown) (no (unknown) (unknown) tramadol 50 mg (units (unknown) date) tablet 50 mg PO unknown) TID PRN #30 tab 01/19/22 [Rx Confirmed 03/21/22] (unknown) (no (unknown) (unknown) vit C-vit (units (unkn own) date) Y-xhzbtm-vohj unknown) ox-lutein 226 mg-200 unit-5 mg-0.8 mg capsule Result panel 2 (unknown) (no (unknown) (unknown) (no value) (units (unk nown) date) unknown) (unknown) (no (unknown) (unknown) (no value) (units (unk nown) date) unknown) (unknown) (no (unknown) (unknown) MAME Zeng (units ( unknown) date) [id number] unknown) (unknown) (no (unknown) (unknown) Draft (units (unkno wn) date) unknown) (unknown) (no (unknown) (unknown) Pain Visit (units (unk nown) date) unknown) (unknown) (no (unknown) (unknown) [facility] ([facility] unknown) (unknown) (no (unknown) (unknown) (no value) (units (unk nown) date) unknown) (unknown) (no (unknown) (unknown) (PreserVision (units ( unknown) date) Lutein) 1 cap PO unknown) DAILY 01/06/20 [History Confirmed 03/21/22] (unknown) (no (unknown) (unknown) 03/21/22 (units (unkno wn) date) unknown) (unknown) (no (unknown) (unknown) 03/21/22] (units (unkn own) date) unknown) (unknown) (no (unknown) (unknown) 961 (units (unkno wn) date) unknown) (unknown) (no (unknown) (unknown) Accompanied by: (units (unknown) date) Self / Same As unknown) Patient (unknown) (no (unknown) (unknown) Age/Sex: 81 / F (units (unknown) date) Date of unknown) Service: (unknown) (no (unknown) (unknown) Allergies (units (unkn own) date) unknown) (unknown) (no (unknown) (unknown) Amaurosis fugax, (units (unknown) date) right eye unknown) (unknown) (no (unknown) (unknown) Anemia (units (unkno wn) date) unknown) (unknown) (no (unknown) (unknown) Attending Dr: (units ( unknown) date) Shaji Blum unknown) D.O. (unknown) (no (unknown) (unknown) COPD (chronic (units ( unknown) date) obstructive unknown) pulmonary disease) (unknown) (no (unknown) (unknown) Confirmed (units (unkn own) date) 03/21/22] unknown) (unknown) (no (unknown) (unknown) Congestive heart (units (unknown) date) failure unknown) (unknown) (no (unknown) (unknown) : 1940 (units (unknown) date) Acct:[id number] unknown) (unknown) (no (unknown) (unknown) Dept at (units (unkno wn) date) . unknown) (unknown) (no (unknown) (unknown) Documented By: (units (unknown) date) Shaji Blum unknown) D.O. 03/21/22 1282 (unknown) (no (unknown) (unknown) Facet (units (unkno wn) date) arthropathy, unknown) lumbar (unknown) (no (unknown) (unknown) HERE FOR POST (units ( unknown) date) LUMBAR AREA unknown) (unknown) (no (unknown) (unknown) History of (units (unk nown) date) carotid unknown) endarterectomy (unknown) (no (unknown) (unknown) History of (units (unk nown) date) tobacco use unknown) (unknown) (no (unknown) (unknown) Intake (units (unkno wn) date) unknown) (unknown) (no (unknown) (unknown) Intake Clinical (units (unknown) date) Staff unknown) (unknown) (no (unknown) (unknown) Intake Note: (units (u nknown) date) unknown) (unknown) (no (unknown) (unknown) Intake performed (units (unknown) date) by: Suzanne Orourke unknown) (unknown) (no (unknown) (unknown) Is patient in (units ( unknown) date) pain?: Yes (HERE unknown) FOR POST LUMBAR AREA) Pain scale (1-10): 3 (unknown) (no (unknown) (unknown) Loc: PAIN (units (unkn own) date) unknown) (unknown) (no (unknown) (unknown) Lumbosacral (units (un known) date) radiculopathy at unknown) L5 (unknown) (no (unknown) (unknown) Medical History (units (unknown) date) (Reviewed unknown) 01/19/22 @ 14:32 by Shaji Blum DO) (unknown) (no (unknown) (unknown) Medications (units (un known) date) unknown) (unknown) (no (unknown) (unknown) PFSH (units (unkno wn) date) unknown) (unknown) (no (unknown) (unknown) Pain Scale (units (unk nown) date) unknown) (unknown) (no (unknown) (unknown) Patient: ParkerChandan (units (unknown) date) [facility] MR#: unknown) [id number] (unknown) (no (unknown) (unknown) Reason For Visit (units (unknown) date) unknown) (unknown) (no (unknown) (unknown) Signed By: (units (unk nown) date) unknown) (unknown) (no (unknown) (unknown) Smoking Status: (units (unknown) date) Former smoker unknown) (unknown) (no (unknown) (unknown) Surgical History (units (unknown) date) (Reviewed unknown) 01/19/22 @ 14:32 by Shaji Blum DO) (unknown) (no (unknown) (unknown) This note may (units ( unknown) date) have been all or unknown) partially generated using voice recognition (unknown) (no (unknown) (unknown) Tobacco + (units (unkn own) date) Substance Use unknown) (unknown) (no (unknown) (unknown) Tobacco Status (units (unknown) date) unknown) (unknown) (no (unknown) (unknown) Visit Reasons: (units (unknown) date) 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 , 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 (unknown) (no (unknown) (unknown) Vitamin D3 1 cap (units (unknown) date) PO DAILY 01/06/20 unknown) [History Confirmed 03/21/22] (unknown) (no (unknown) (unknown) acetaminophen (units ( unknown) date) 325 mg tablet 650 unknown) mg PO Q4H PRN 01/06/20 [History Confirmed (unknown) (no (unknown) (unknown) alendronate 70 (units (unknown) date) mg tablet 70 mg unknown) PO QWEEK 11/15/21 [History Confirmed 03/21/22] (unknown) (no (unknown) (unknown) aspirin 81 mg (units ( unknown) date) tablet,delayed unknown) release 81 mg PO DAILY 01/06/20 [History Confirmed (unknown) (no (unknown) (unknown) docusate sodium (units (unknown) date) 100 mg capsule unknown) (Colace) 100 mg PO DAILY #20 cap 01/16/22 [Rx (unknown) (no (unknown) (unknown) ezetimibe 10 mg (units (unknown) date) tablet 10 mg PO unknown) DAILY 01/06/20 [History Confirmed 03/21/22] (unknown) (no (unknown) (unknown) fluticasone-umec (units (unknown) date) lidin-vilanter unknown) [Trelegy Ellipta] INHALATION 11/15/21 [History (unknown) (no (unknown) (unknown) gabapentin (units (unk nown) date) Adverse Reaction unknown) (Intermediate, Verified 03/21/22 14:57) (unknown) (no (unknown) (unknown) have occurred. (units (unknown) date) If there are any unknown) questions, please contact the Medical Records (unknown) (no (unknown) (unknown) may occur. (units (unk nown) date) Occasional unknown) wrong-word or 'sound-alike' substitutions may have (unknown) (no (unknown) (unknown) occurred due to (units (unknown) date) the inherent unknown) limitations of voice recognition software. Please (unknown) (no (unknown) (unknown) read the note (units ( unknown) date) carefully and unknown) recognize, using context, where these substitutions (unknown) (no (unknown) (unknown) rosuvastatin 20 (units (unknown) date) mg tablet 20 mg unknown) PO DAILY 01/06/20 [History Confirmed 03/21/22] (unknown) (no (unknown) (unknown) sennosides 8.6 (units (unknown) date) mg capsule unknown) (senna) 8.6 mg PO DAILY PRN #20 cap 01/16/22 [Rx (unknown) (no (unknown) (unknown) software. 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 (unknown) (no (unknown) (unknown) spironolactone 25 (units (unknown) date) mg tablet 25 mg unknown) PO DAILY 01/06/20 [History Confirmed 03/21/22] (unknown) (no (unknown) (unknown) torsemide 10 mg (units (unknown) date) tablet 10 mg PO unknown) DAILY 11/15/21 [History Confirmed 03/21/22] (unknown) (no (unknown) (unknown) tramadol 50 mg (units (unknown) date) tablet 50 mg PO unknown) TID PRN #30 tab 01/19/22 [Rx Confirmed 03/21/22] (unknown) (no (unknown) (unknown) vit C-vit (units (unkn own) date) E-wisgio-hoem unknown) ox-lutein 226 mg-200 unit-5 mg-0.8 mg capsule Result panel 3 (unknown) (no (unknown) (unknown) (no value) (units (unk nown) date) unknown) (unknown) (no (unknown) (unknown) Qualifiers: (units (un known) date) unknown) (unknown) (no (unknown) (unknown) Status: Acute (units ( unknown) date) unknown) (unknown) (no (unknown) (unknown) (no value) (units (unk nown) date) unknown) (unknown) (no (unknown) (unknown) 03/21/22 1516 (units ( unknown) date) unknown) (unknown) (no (unknown) (unknown) [place] [id number] (unit s (unknown) date) unknown) (unknown) (no (unknown) (unknown) COPD type: (units (unk nown) date) unspecified COPD unknown) Qualified Code(s): J44.9 - Chronic (unknown) (no (unknown) (unknown) Pain Visit (units (unk nown) date) unknown) (unknown) (no (unknown) (unknown) Signed (units (unkno wn) date) unknown) (unknown) (no (unknown) (unknown) [facility] (unit s (unknown) date) Management unknown) (unknown) (no (unknown) (unknown) (no value) (units (unk nown) date) unknown) (unknown) (no (unknown) (unknown) (1) Facet (units (unkn own) date) arthropathy, lumbar: unknown) (unknown) (no (unknown) (unknown) (2) Lumbosacral (units (unknown) date) radiculopathy at L5: unknown) (unknown) (no (unknown) (unknown) (3) COPD (chronic (units (unknown) date) obstructive unknown) pulmonary disease): (unknown) (no (unknown) (unknown) (4) History of (units (unknown) date) carotid unknown) endarterectomy: (unknown) (no (unknown) (unknown) (PreserVision (units ( unknown) date) Lutein) 1 cap PO unknown) DAILY 01/06/20 [History Confirmed 11/15/21] (unknown) (no (unknown) (unknown) 11/15/21] (units (unkn own) date) unknown) (unknown) (no (unknown) (unknown) 01/25/2022 (units (unk nown) date) unknown) (unknown) (no (unknown) (unknown) 01/25/2022. She has (unit s (unknown) date) had minimal if any unknown) discomfort since the injection. She has (unknown) (no (unknown) (unknown) 03/21/22 (units (unkno wn) date) unknown) (unknown) (no (unknown) (unknown) 961 (units (unkno wn) date) unknown) (unknown) (no (unknown) (unknown) Accompanied by: (units (unknown) date) Self / Same As unknown) Patient (unknown) (no (unknown) (unknown) Age/Sex: 81 / F (units (unknown) date) Date of Service: unknown) (unknown) (no (unknown) (unknown) All of her (units (unk nown) date) questions were unknown) answered to the best my ability she is in agreement (unknown) (no (unknown) (unknown) All other systems (units (unknown) date) reviewed and are unknown) negative except as noted in HPI. (unknown) (no (unknown) (unknown) Allergies (units (unkn own) date) unknown) (unknown) (no (unknown) (unknown) Amaurosis fugax, (units (unknown) date) right eye unknown) (unknown) (no (unknown) (unknown) Anemia (units (unkno wn) date) unknown) (unknown) (no (unknown) (unknown) Approved by: [place] (units (unknown) date) Fredrick Wang M.D. on unknown) 07/13/2021 at 10:40 (unknown) (no (unknown) (unknown) Assessment + Plan (units (unknown) date) unknown) (unknown) (no (unknown) (unknown) Attending Dr: (units ( unknown) date) Shaji Blum D.O. 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 (units (unknown) date) unknown) (unknown) (no (unknown) (unknown) Denies recent (units ( unknown) date) trauma, fever or unknown) weight loss of unknown origin, immunocompromise (unknown) (no (unknown) (unknown) Dept at (units (unkno wn) date) . unknown) (unknown) (no (unknown) (unknown) Details: (units (unkno wn) date) unknown) (unknown) (no (unknown) (unknown) Dictated by: [place] (units (unknown) date) Fredrick Wang M.D. on unknown) 07/13/2021 at 10:37 (unknown) (no (unknown) (unknown) Documented By: (units (unknown) date) Shaji Blum D.O. unknown) 03/21/22 1454 (unknown) (no (unknown) (unknown) Endorses Acute LBP, (unit s (unknown) date) Hx of Carotid Endart unknown) (unknown) (no (unknown) (unknown) Exam (units (unkno wn) date) unknown) (unknown) (no (unknown) (unknown) Exam Narrative (units (unknown) date) unknown) (unknown) (no (unknown) (unknown) Exam Narrative: (units (unknown) date) unknown) (unknown) (no (unknown) (unknown) Facet arthropathy, (units (unknown) date) lumbar unknown) (unknown) (no (unknown) (unknown) Gait: Full (units (un known) date) weightbearing. No unknown) assistive device. Stooped Gait Posture due to (unknown) (no (unknown) (unknown) General: The (units ( unknown) date) patient is in no unknown) obvious distress. Normal affect. 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 (unknown) (no (unknown) (unknown) Intake (units (unkno wn) date) unknown) (unknown) (no (unknown) (unknown) Intake Clinical (units (unknown) date) Staff unknown) (unknown) (no (unknown) (unknown) Intake Note: (units (u nknown) date) unknown) (unknown) (no (unknown) (unknown) Intake performed (units (unknown) date) by: Suzanne Orourke unknown) (unknown) (no (unknown) (unknown) Is patient in (units ( unknown) date) pain?: Yes (HERE FOR unknown) POST LUMBAR AREA) Pain scale (1-10): 3 (unknown) (no (unknown) (unknown) [facility] and I (units (unk nown) date) discussed at length unknown) her underlying pathology in her very positive (unknown) (no (unknown) (unknown) [facility] is seen today (units (unknown) date) in follow-up status unknown) post bilateral L4-L5 and S1 medial branch (unknown) (no (unknown) (unknown) L4-L5: The disc (units (unknown) date) height is unknown) well-preserved. Loss of disc signal is seen at this (unknown) (no (unknown) (unknown) L5-S1: At least (units (unknown) date) moderate loss of unknown) disc height and disc signal can be seen. (unknown) (no (unknown) (unknown) Left Lower (units (unk nown) date) Extremity: No unknown) edema, joint effusion or atrophy. tenderness over the (unknown) (no (unknown) (unknown) Left Upper (units (unkn own) date) Extremity: Left unknown) upper extremity exam shows grossly normal alignment, (unknown) (no (unknown) (unknown) Loc: PAIN (units (unkn own) date) unknown) (unknown) (no (unknown) (unknown) Lumbosacral (units (un known) date) radiculopathy at L5 unknown) (unknown) (no (unknown) (unknown) MSK: System (units (un known) date) reviewed and no unknown) additional complaints, except as documented. (unknown) (no (unknown) (unknown) Medical History (units (unknown) date) (Reviewed 01/19/22 @ unknown) 14:32 by Shaji Blum DO) (unknown) (no (unknown) (unknown) Medications (units (un known) date) unknown) (unknown) (no (unknown) (unknown) Moderate (units (unkno wn) date) unknown) (unknown) (no (unknown) (unknown) Moderate bilateral (units (unknown) date) neural foraminal unknown) narrowing is seen. Mild to moderate central (unknown) (no (unknown) (unknown) Moderate (units (unkno wn) date) generalized disc unknown) bulge is seen. Moderate facet joint hypertrophy is (unknown) (no (unknown) (unknown) Neuro: System (units ( unknown) date) reviewed and no unknown) additional complaints, except as documented. (unknown) (no (unknown) (unknown) Neurologic: (units (unk nown) date) Sensation is grossly unknown) intact to light touch throughout the upper and (unknown) (no (unknown) (unknown) Objective Data (units (unknown) date) unknown) (unknown) (no (unknown) (unknown) Objective Data: (units (unknown) date) unknown) (unknown) (no (unknown) (unknown) PFSH (units (unkno wn) date) unknown) (unknown) (no (unknown) (unknown) Pain Scale (units (unk nown) date) unknown) (unknown) (no (unknown) (unknown) Patient: Chandan Parker (units (unknown) date) [facility] MR#: [id number] unknown) (unknown) (no (unknown) (unknown) Plan (units (unkno wn) date) unknown) (unknown) (no (unknown) (unknown) ROS (units (unkno wn) date) unknown) (unknown) (no (unknown) (unknown) ROS Narrative (units ( unknown) date) unknown) (unknown) (no (unknown) (unknown) ROS Narrative: (units (unknown) date) unknown) (unknown) (no (unknown) (unknown) Reason For Visit (units (unknown) date) unknown) (unknown) (no (unknown) (unknown) Right Lower (units (un known) date) Extremity: No unknown) edema, effusion or atrophy. tenderness over the (unknown) (no (unknown) (unknown) Right Upper (units (un known) date) Extremity: Right unknown) upper extremity exam shows grossly normal (unknown) (no (unknown) (unknown) She remains a prime (unit s (unknown) date) candidate for repeat unknown) medial branch block with short-acting (unknown) (no (unknown) (unknown) She reports (units (un known) date) otherwise feeling unknown) well maintain the Covid19 social restrictions (unknown) (no (unknown) (unknown) Signed By: (units (unk nown) date) <Electronically unknown) signed by Scott BiggsO.> (unknown) (no (unknown) (unknown) Skin: No (units (unkn own) date) significant skin unknown) lesions are noted. (unknown) (no (unknown) (unknown) Smoking Status: (units (unknown) date) Former smoker unknown) (unknown) (no (unknown) (unknown) Spine: Cervical (units (unknown) date) spine ROM unknown) functional. 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 (unknown) (no (unknown) (unknown) Vitamin D3 1 cap PO (unit s (unknown) date) DAILY 01/06/20 unknown) [History Confirmed 11/15/21] (unknown) (no (unknown) (unknown) acetaminophen 325 (units (unknown) date) mg tablet 650 mg PO unknown) Q4H PRN 01/06/20 [History Confirmed (unknown) (no (unknown) (unknown) alendronate 70 mg (units (unknown) date) tablet 70 mg PO unknown) QWEEK 11/15/21 [History Confirmed 11/15/21] (unknown) (no (unknown) (unknown) alignment, range of (unit s (unknown) date) motion, strength and unknown) stability with no swelling, atrophy or (unknown) (no (unknown) (unknown) anesthetic should (units (unknown) date) symptoms return as unknown) ultimately she may be a prime candidate for (unknown) (no (unknown) (unknown) aspirin 81 mg (units ( unknown) date) tablet,delayed unknown) release 81 mg PO DAILY 01/06/20 [History Confirmed (unknown) (no (unknown) (unknown) associated mild (units (unknown) date) compression upon the unknown) exiting L5 nerve roots. Mild central canal (unknown) (no (unknown) (unknown) axial LBP (units (unkn own) date) unknown) (unknown) (no (unknown) (unknown) ay occur. (units (unkn own) date) Occasional unknown) wrong-word or 'sound-alike' substitutions may have (unknown) (no (unknown) (unknown) been noted (units (unk nown) date) increasing level of unknown) activities and decrease her use of medications. (unknown) (no (unknown) (unknown) blocks performed on (unit s (unknown) date) 01/25/2022. She unknown) reports no difficulty with the procedure (unknown) (no (unknown) (unknown) canal (units (unkno wn) date) unknown) (unknown) (no (unknown) (unknown) compression upon (units (unknown) date) the exiting L5 nerve unknown) roots. (unknown) (no (unknown) (unknown) decrease her oral (units (unknown) date) medications and unknown) increase her level of activity. She reports (unknown) (no (unknown) (unknown) disc bulge is seen, (unit s (unknown) date) which is eccentric unknown) to the right. Mild to moderate facet (unknown) (no (unknown) (unknown) docusate sodium 100 (unit s (unknown) date) mg capsule (Colace) unknown) 100 mg PO DAILY #20 cap 01/16/22 [Rx] (unknown) (no (unknown) (unknown) effusion. (units (unkn own) date) unknown) (unknown) (no (unknown) (unknown) ezetimibe 10 mg (units (unknown) date) tablet 10 mg PO unknown) DAILY 01/06/20 [History Confirmed 11/15/21] (unknown) (no (unknown) (unknown) feels overall (units ( unknown) date) greatly improved unknown) from her previous. (unknown) (no (unknown) (unknown) fluticasone-umeclid (unit s (unknown) date) in-vilanter [Trelegy unknown) Ellipta] INHALATION 11/15/21 [History (unknown) (no (unknown) (unknown) gabapentin Adverse (units (unknown) date) Reaction unknown) (Intermediate, Verified 03/21/22 14:57) (unknown) (no (unknown) (unknown) greater (units (unkno wn) date) trochanteric region unknown) (unknown) (no (unknown) (unknown) greater (units (unkno wn) date) trochanteric region. unknown) (unknown) (no (unknown) (unknown) have occurred. If (units (unknown) date) there are any unknown) questions, please contact the Medical Records (unknown) (no (unknown) (unknown) hypertrophy is (units (unknown) date) unknown) (unknown) (no (unknown) (unknown) increased tenderness (unit s (unknown) date) with axial loading unknown) and extension based maneuvers tenderness (unknown) (no (unknown) (unknown) intravenous drug (units (unknown) date) use, sustained unknown) glucocorticoid use, osteoporosis, or a focal (unknown) (no (unknown) (unknown) is quite pleased (units (unknown) date) with the reduction unknown) in symptoms and reports she has been able to (unknown) (no (unknown) (unknown) itself does room (units (unknown) date) for report prominent unknown) relief from her axial low back pain. She (unknown) (no (unknown) (unknown) level. (units (unkno wn) date) unknown) (unknown) (no (unknown) (unknown) lower extremities. (units (unknown) date) motor 5/5 all LE unknown) muscle groups. Coordination appears normal. (unknown) (no (unknown) (unknown) medial branch (units ( unknown) date) rhizotomy. unknown) (unknown) (no (unknown) (unknown) narrowing is seen. (units (unknown) date) unknown) (unknown) (no (unknown) (unknown) neurological (units (u nknown) date) deficit with unknown) progressive or disabling symptoms. (unknown) (no (unknown) (unknown) obstructive (units (un known) date) pulmonary disease, unknown) unspecified (unknown) (no (unknown) (unknown) occurred due to the (unit s (unknown) date) inherent limitations unknown) of voice recognition software. Please (unknown) (no (unknown) (unknown) or (units (unkno wn) date) immunosuppressive unknown) therapy, previous or current cancer diagnosis, history of (unknown) (no (unknown) (unknown) oriented. (units (unkn own) date) unknown) (unknown) (no (unknown) (unknown) planes. On (units (unk nown) date) palpation, there is unknown) tenderness over the spinous processes. With (unknown) (no (unknown) (unknown) provocative (units (unk nown) date) maneuvers including unknown) sacra shear test as well as pelvic obliquity are (unknown) (no (unknown) (unknown) range of motion, (units (unknown) date) strength and unknown) stability with no swelling, atrophy or effusion. (unknown) (no (unknown) (unknown) read the note (units ( unknown) date) carefully and unknown) recognize, using context, where these substitutions (unknown) (no (unknown) (unknown) response with her (units (unknown) date) bilateral L4-L5 and unknown) S1 medial branch blocks performed on (unknown) (no (unknown) (unknown) rosuvastatin 20 mg (units (unknown) date) tablet 20 mg PO unknown) DAILY 01/06/20 [History Confirmed 11/15/21] (unknown) (no (unknown) (unknown) seen. (units (unkno wn) date) unknown) (unknown) (no (unknown) (unknown) seen. There is (units (unknown) date) moderate to severe unknown) bilateral neural foraminal narrowing seen, (unknown) (no (unknown) (unknown) sennosides 8.6 mg (units (unknown) date) capsule (senna) 8.6 unknown) mg PO DAILY PRN #20 cap 01/16/22 [Rx] (unknown) (no (unknown) (unknown) she has had some (units (unknown) date) return of symptoms unknown) but she is not back to her baseline. She (unknown) (no (unknown) (unknown) software. 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 Sacral (unknown) (no (unknown) (unknown) torsemide 10 mg (units (unknown) date) tablet 10 mg PO unknown) DAILY 11/15/21 [History Confirmed 11/15/21] (unknown) (no (unknown) (unknown) tramadol 50 mg (units (unknown) date) tablet 50 mg PO TID unknown) PRN #30 tab 01/19/22 [Rx Confirmed 01/19/22] (unknown) (no (unknown) (unknown) vit C-vit (units (unkn own) date) [id number] unknown) ox-lutein 226 mg-200 unit-5 mg-0.8 mg capsule (unknown) (no (unknown) (unknown) with (units (unkno wn) date) unknown) (unknown) (no (unknown) (unknown) with the (units (unkno wn) date) above-stated plan. unknown) (unknown) (no (unknown) (unknown) within normal (units ( unknown) date) limits. unknown) (unknown) (no (unknown) (unknown) without cough fever (unit s (unknown) date) fatigue at this unknown) time. She has been fully vaccinated. Social History date description facility (no date) Ex-smoker (finding) [facility] Vital Signs No information.
--- NOTE | 2022-05-12 11:57 | ED Physician Documentation ---
PD HPI HEENT - Stated complaint Stated Complaint: BLOOD IN RT EAR - Chief complaint Chief Complaint: Heent - History obtained from History obtained from: Patient - History of Present Illness Timing - onset: How many days ago (2) Timing - duration: Days (2) Timing - details: Gradual onset, Still present Location: Right ear (having pain right ear and feeling of itching in canal. Has less hearing. Tried cleaning with qtip and noted some blood on it. No drainage.) Associated symptoms: Congestion, Other (some sinus/frontal pressure and feeling of right ear pressure/less hearing.). No: Fever, Cough Similar symptoms before: Diagnosis (has had some itching in ear canal previously and has had Rx of mometasone drops by [facility] in the past. Wears hearing aides.) Review of Systems Constitutional: denies: Fever, Chills Ears: reports: Loss of hearing (less in right ear acutely), Ear pain. denies: Drainage/discharge Nose: reports: Sinus pressure / pain. denies: Rhinorrhea / runny nose Throat: denies: Sore throat Respiratory: denies: Cough Skin: denies: Rash, Lesions Neurologic: denies: Headache PD PAST MEDICAL HISTORY - Past Medical History Cardiovascular: High cholesterol Respiratory: COPD Neuro: TIA Endocrine/Autoimmune: None GI: None SENIOR LANDSCAPE ARCHITECT: None : None HEENT: None Psych: None Musculoskeletal: None Derm: None - Past Surgical History Past Surgical History: Yes /SENIOR LANDSCAPE ARCHITECT: Hysterectomy - Present Medications Home Medications: Ambulatory Orders Medication Instructions Recorded Confirmed Atorvastatin Calcium [Lipitor] 40 mg PO DAILY 10/09/14 10/09/14 dexAMETHasone [Decadron] 4 mg PO DAILY #5 tablet 10/10/14 traMADol [Ultram] 50 mg PO Q4-6H PRN #25 tablet 10/10/14 Cetirizine [ZyrTEC] 10 mg PO DAILY #15 tablet 05/12/22 Clotrimazole 4 drops RIGHTEAR TID 5 Days #10 ml 05/12/22 - Allergies Allergies/Adverse Reactions: Allergies Allergy/AdvReac Type Severity Reaction Status Date / Time No Known Drug Allergies Allergy Verified 05/12/22 11:16 - Social History Does the pt smoke?: No Smoking Status: Never smoker Does the pt drink ETOH?: No Does the pt have substance abuse?: No - Immunizations Immunizations are current?: Yes - POLST Patient has POLST: No PD ED PE NORMAL - Vitals Vital signs reviewed: Yes - General General: Alert and oriented X 3, No acute distress, Well developed/nourished - HEENT HEENT: Moist mucous membranes, Pharynx benign. No: Ears normal (left canal and TM are normal. Right TM without redness but has some serous fluid. Canal with redness and some dried blood mid canal bottom aspect with some white exudate, appearing likely yeast infection. ) Results - Vitals Vitals: Vital Signs - 24 hr 05/12/22 05/12/22 11:12 12:47 Temperature 36.3 C L 36.5 C Heart Rate 66 64 Respiratory 18 16 Rate Blood Pressure 141/79 H 130/80 O2 Saturation 96 98 Oxygen O2 Source Room air PD MEDICAL DECISION MAKING - ED course Complexity details: considered differential (ear irrigated with saline room temp and she had improved hearing after some dried blood gotten out. ), d/w patient Departure - Departure Disposition: 01 Home, Self Care Clinical Impression: Otitis externa Qualifiers: Otitis externa type: other infective Chronicity: acute Laterality: right Qualified Code(s): H60.391 - Other infective otitis externa, right ear Condition: Stable Record reviewed to determine appropriate education?: Yes Instructions: ED Otitis Externa Follow-Up: Katerina Sarah MD [Primary Care Provider] - [facility] MD [Physician No Access] - Prescriptions: Clotrimazole 4 drops RIGHTEAR TID 5 Days #10 ml Cetirizine [ZyrTEC] 10 mg PO DAILY #15 tablet Comments: There is some redness and whitish mild exudate in the midportion of the ear canal along with some irritation and dried blood. The eardrum appears normal with perhaps just some fluid behind it. I presume your pressure feeling in the sinuses and ear relate to some fluid buildup and we can treat that with cetirizine antihistamine daily for a week or 2. Presume possible allergies or such. The ear canal process looks like a localized infection with irritation and mild bleeding. It appears more likely fungal than bacterial. You can continue the mometasone anti-inflammatory drops but I would add clotrimazole antifungal drops 3 times daily for the next 5 or 6 days on the right ear. The left ear canal appears normal. Recheck if not improving well over the next several days. I transmitted your prescriptions to [facility] pharmacy in [place]. Discharge Date/Time: 05/12/22 12:47
[2022-05-12] MEDS ORDERED: CETIRIZINE 10 MG TABLET PO STA (12:20)
[2022-05-12 12:49] VITALS: BP 130/80
== END 2022-05-12 12:47 | disposition home or self-care (01) ==
LOC: ED 11:06
DX: H60.391 Other infective otitis externa, right ear (principal)
CPT/HCPCS: 99282; A9270

== ENCOUNTER 2022-06-02 14:53 | Emergency (ER) | payer MEDICARE, OTHER ==
--- OUTSIDE RECORDS SUMMARY | 2022-06-02 15:08 | EXTERNAL MEDICAL SUMMARY RPT | Continuity of Care Document ---
:1940 Author Organization [place] Address [address] [place] [address] Phone Allergies No information. Encounters No information. Functional Status No information. Immunizations No information. Medications No information. Problems No information. Procedures date description facility Diagnosis [facility] [phone] Finding [facility] [phone] General Physician [facility] Results/Labs test date author facility value unit interpret ation Result panel 1 (unknown) (no (unknown) (unknown) (no value) (units (unk nown) date) unknown) (unknown) (no (unknown) (unknown) (no value) (units (unk nown) date) unknown) (unknown) (no (unknown) (unknown) MAME Zeng (units ( unknown) date) [id number] unknown) (unknown) (no (unknown) (unknown) Draft (units [...] (unknown) (unknown) : 1940 (units (unknown) date) Acct:[id number] unknown) (unknown) (no (unknown) (unknown) Dept at [...] unknown) (unknown) (no (unknown) (unknown) Patient: Chandan Narvaez (units (unknown) date) [facility] MR#: unknown) [id number] (unknown) (no (unknown) (unknown) Reason For Visit [...] unknown) 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, 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 (unknown) (no (unknown) (unknown) spironolactone 25 [...] (unknown) vit C-vit (units (unkn own) date) [id number] unknown) ox-lutein 226 mg-200 unit-5 mg-0.8 mg capsule Result panel 2 (unknown) (no (unknown) (unknown) (no value) (units (unk nown) date) unknown) (unknown) (no (unknown) (unknown) (no value) (units (unk nown) date) unknown) (unknown) (no (unknown) (unknown) MAME Zeng (units ( unknown) date) [id number] unknown) (unknown) (no (unknown) (unknown) Draft (units [...] (unknown) (unknown) : 1940 (units (unknown) date) Acct:[id number] unknown) (unknown) (no (unknown) (unknown) Dept at (units (unkno wn) date) . unknown) (unknown) (no (unknown) (unknown) Documented By: (units (unknown) date) Shaji Blum unknown) D.O. 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
[2022-06-02 16:03] LABS: BASOPHILS % (AUTO) 0.2 %; HCT - HEMATOCRIT 37.9 % (37.0-47.0); LYMPHOCYTES # (AUTO) 0.3 10^3/uL (1.5-3.5); LYMPHOCYTES % (AUTO) 5.3 %; MEAN CORPUSCULAR HGB CONC 31.7 g/dL (32.0-36.0); MEAN CORPUSCULAR VOLUME 88.3 fL (81.0-99.0); MEAN PLATELET VOLUME 9.5 fL (7.9-10.8); MONOCYTES # (AUTO) 0.2 10^3/uL (0.0-1.0); MONOCYTES % (AUTO) 2.7 %; NEUTROPHILS # (AUTO) 5.7 10^3/uL (1.5-6.6); NEUTROPHILS % (AUTO) 91.5 %; PLT - PLATELET COUNT 193 10^3/uL (130-450); RED BLOOD COUNT 4.29 10^6/uL (4.20-5.40); RED CELL DISTRIBUTION WIDTH 16.2 % (12.0-15.0); WHITE BLOOD COUNT 6.3 x10^3/uL (4.8-10.8)
[2022-06-02 16:09] LABS: INR 0.9 (0.8-1.2); PT - PROTHROMBIN TIME 10.5 secs (9.9-12.6)
--- NOTE | 2022-06-02 16:13 | ED Physician Documentation ---
History of Present Illness - Stated complaint Stated Complaint: LOSS OF EYE SIGHT - Chief complaint Chief Complaint: General - Additonal information Additional information: 79-year-old female comes to the emergency department for evaluation of brief episode of loss of vision in her right eye. At approximately 2 PM she was simply sitting on the couch looking at her phone. She had sudden loss of vision in the lower half of the right visual field. It was completely black. There was no loss of vision in her left eye when she closed her right eye This lasted for about 10 minutes before fully dissipating. She denies any headache, or eye pain. No diplopia. She does have a history of carotid stenting, she is uncertain of unilaterally. She states that she may have had similar years ago which was the reason for the carotid stenting. This was done at [facility]. She does take a daily 81 mg aspirin. Patient does not have a history of atrial fibrillation. She is not anticoagulated. No history of heart failure. Meds: Atorvastatin 20 mg daily, Aldactone 25 mg daily, torsemide 10 mg daily, 81 mg aspirin daily; alendronate 70 mg q week Review of Systems Constitutional: denies: Fever, Chills Eyes: reports: Loss of vision Ears: reports: Reviewed and negative Nose: reports: Reviewed and negative Throat: reports: Reviewed and negative Cardiac: reports: Reviewed and negative Respiratory: reports: Reviewed and negative GI: reports: Reviewed and negative : reports: Reviewed and negative Skin: reports: Reviewed and negative Musculoskeletal: reports: Reviewed and negative Neurologic: reports: Reviewed and negative PD PAST MEDICAL HISTORY - Past Medical History Cardiovascular: High cholesterol Respiratory: COPD Neuro: TIA Endocrine/Autoimmune: None GI: None 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 : None HEENT: None Psych: None Musculoskeletal: None Derm: None - Past Surgical History Past Surgical History: 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 - Present Medications Home Medications: Ambulatory Orders Medication Instructions Recorded Confirmed Atorvastatin Calcium [Lipitor] 40 mg PO DAILY 10/09/14 10/09/14 dexAMETHasone [Decadron] 4 mg PO DAILY #5 tablet 10/10/14 traMADol [Ultram] 50 mg PO Q4-6H PRN #25 tablet 10/10/14 Cetirizine [ZyrTEC] 10 mg PO DAILY #15 tablet 05/12/22 Clotrimazole 4 drops RIGHTEAR TID 5 Days #10 ml 05/12/22 - Allergies Allergies/Adverse Reactions: Allergies Allergy/AdvReac Type Severity Reaction Status Date / Time No Known Drug Allergies Allergy Verified 06/02/22 15:04 - Social History Does the pt smoke?: No Smoking Status: Never smoker Does the pt drink ETOH?: No Does the pt have substance abuse?: No - Immunizations Immunizations are current?: Yes - POLST Patient has POLST: No PD ED PE NORMAL - General General: Alert and oriented X 3, No acute distress, Well developed/nourished - HEENT HEENT: Atraumatic, EOMI, Ears normal, Pharynx benign - Neck Neck: Supple, no meningeal sign - Cardiac Cardiac: RRR, No murmur, No gallop - Respiratory Respiratory: No respiratory distress - Abdomen Abdomen: Normal bowel sounds, Soft - Derm Derm: Normal color, Warm and dry, No rash, Other - Extremities Extremities: No deformity, No tenderness to palpate, Normal ROM s pain Results - Vitals Vitals: Vital Signs - 24 hr 06/02/22 06/02/22 14:57 17:03 Temperature 36.5 C Heart Rate 78 74 Respiratory 14 19 Rate Blood Pressure 133/66 H 120/77 O2 Saturation 97 96 Oxygen O2 Source Room air - EKG (time done) 1711 Rate: Rate (enter#) (72) Rhythm: NSR [place]: Normal Intervals: Normal HI QRS: Normal Ischemia: Non specific changes Compare to prior EKG: Old EKG unavailable Computer interpretation: Agree with computer - Labs Labs: Laboratory Tests 06/02/22 06/02/22 06/02/22 15:55 15:55 15:55 WBC 6.3 RBC 4.29 Hgb 12.0 Hct 37.9 MCV 88.3 MCH 28.0 MCHC 31.7 L RDW 16.2 H Plt Count 193 MPV 9.5 Neut # (Auto) 5.7 Lymph # (Auto) 0.3 L [place] # (Auto) 0.2 Eos # (Auto) 0.0 Baso # (Auto) 0.0 Absolute Nucleated RBC 0.00 Nucleated RBC % 0.0 PT 10.5 INR 0.9 Sodium 139 Potassium 4.6 Chloride 102 Carbon Dioxide 28 Anion Gap 9.0 BUN 38 H Creatinine 1.4 H Estimated GFR (MDRD) 36 L Glucose 186 H Calcium 9.4 Total Bilirubin 0.6 AST 29 ALT 31 Alkaline Phosphatase 61 Total Protein 6.9 Albumin 4.0 Globulin 2.9 Albumin/Globulin Ratio 1.4 Lipase 35 - Rads (name of study) CTA head Radiology: Final report received (Asymmetric flow within the posterior cerebral symptoms decreased on the left compared to the right.) CT angio neck Radiology: Final report received (Right carotid stent seen with prominent narrowing within its proximal portion with subtotal stenosis) PD MEDICAL DECISION MAKING - ED course Complexity details: considered differential, d/w patient, d/w digital media sales consultant (Deonte pierson) ED course: 81-year-old female presents emergency department for evaluation of transient monocular vision loss in her right eye that occurred at 2 PM. She was simply sitting on the couch on her phone when she lost the vision for about 10 minutes in the lower half of her eye. There was no vision loss in the left eye when the right eye was closed. She does have a history of hypertension hyperlipidemia. She is not anticoagulated though she takes a daily aspirin. She did have a right carotid stent placed a number of years ago through [facility]. Here in the emergency department we did note a normal CBC. Likely mildly dehydrated with mildly elevated BUN and creatinine. She was repleted with 1 L crystalloid. She was also given a loading dose of aspirin [address] angio of the neck shows near subtotal occlusion of the right carotid stent. CT angio of the head shows decreased left posterior cerebral blood flow. I did discuss the CT findings with stroke neurologist Dr. Lee at [facility]. She accepts the patient in transfer. Appropriate COBRA paperwork was completed. Patient will be transported via ALS once the COBRA swab is completed Departure - Departure Disposition: 02 Transfer Acute Care Hosp Clinical Impression: Monocular vision loss, Carotid stent occlusion NIHSS - Time Time: 16:00 - Level of Consciousness Level of consciousness: (0) Alert, Keenly responsive LOC Questions: (0) Answers both Q's correct LOC Commands: (0) Performs both correctly - Gaze Best Gaze: (0) Normal - Visual Visual: (0) No loss - Facial Palsy Facial Palsy: (0) Normal, symmetrical movement - Motor Arms (both separate) Motor Arm (right): (0) No drift Motor Arm (left): (0) No drift - Motor Legs (both separate) Motor Leg (right): (0) No drift Motor Leg (left): (0) No drift - Limb Ataxia Limb Ataxia: (0) Absent - Sensory Sensory: (0) Normal - Best Language Best Language: (0) No aphasia - Dysarthria Dysarthria: (0) Normal - Extinction and Inattention (formally neg Extinction and inattention: (0) No abnormality - Total Score/Results Total Score/Result: 0
[2022-06-02 16:14] LABS: ALBUMIN/GLOBULIN RATIO 1.4 (1.0-2.2); BILIRUBIN,TOTAL 0.6 mg/dL (0.2-1.0); CALCIUM 9.4 mg/dL (8.5-10.3); CREATININE 1.4 mg/dL (0.4-1.0); POTASSIUM 4.6 mmol/L (3.5-5.0); TOTAL PROTEIN 6.9 g/dL (6.7-8.2)
[2022-06-02] MEDS ORDERED: SODIUM CHLORIDE 0.9% 1,000 ML IV STA (16:50)
--- NOTE | 2022-06-02 17:58 | CT Report ---
PROCEDURE: ANGIO NECK W INDICATIONS: loss of vision right eye CONTRAST: IV CONTRAST: Optiray 320 ml: 80 PO CONTRAST: *NO PO CONTRAST TECHNIQUE: After the administration of intravenous contrast, 1.5 mm axial sections acquired from the aortic arch to the [place] of [place]. Coronal 3-D maximum intensity projection (MIP) and/or volume rendering ref ormats were then performed. For radiation dose reduction, the following was used: automated exposur e control, adjustment of mA and/or kV according to patient size. COMPARISON: Correlation is made with the accompanying head CT, 05/25/2022. FINDINGS: Image quality: Excellent. Carotid system: The great vessels demonstrate a conventional anatomy as they arise from the aortic a rch. The origins of the common carotid arteries appear patent. The common carotid arteries demonstr ate normal calibers and courses. There is a right carotid stent seen, which begins within the distal common carotid artery and continu es into the right internal carotid artery. Within the proximal portion of the stent, there is promine nt narrowing seen, with subtotal stenosis. There is flow seen within the more distal right internal c arotid artery, however. Focal atherosclerotic calcification can be seen involving the left bifurcation region, yet without a hemodynamically significant stenosis. The more distal left internal carotid artery is medialized, yet otherwise unremarkable. Posterior circulation: The origins of the vertebral arteries appear patent. The more superior porti ons of the vertebral arteries demonstrate normal course and caliber. They join to form a normal appe aring basilar artery. Soft tissues: Visualized neck soft tissues demonstrate no suspicious abnormalities. The thyroid is normal in size and there are no incidental findings. Emphysematous changes can be seen at the lung ap ices. Right supraclavicular clips are seen. Bones: No suspicious bony lesions. Visualized cervical spine appears normally aligned. Moderate c ervical spine degenerative changes are seen inferiorly. IMPRESSION: There is a right carotid stent seen, with prominent narrowing seen within its proximal portion, with subtotal stenosis. The estimate of stenosis included in the report of the imaging study was calculated using the NASCET method Incidental note is made of: Right supraclavicular clips Moderate lower cervical spine degenerative change Note: Case discussed by telephone with Beverley Barajas at 4:56 PM on 05/25/2022. Reviewed by: Tapan Wang MD on 06/02/2022 4:57 PM AKDT Approved by: Tapan Wang MD on 06/02/2022 4:57 PM MELISSA Station ID: [id number]
--- NOTE | 2022-06-02 18:02 | CT Report ---
PROCEDURE: ANGIO HEAD W/WO INDICATIONS: loss of vision right eye CONTRAST: IV CONTRAST: Optiray 320 ml: 80 PO CONTRAST: *NO PO CONTRAST TECHNIQUE: Precontrast 4.5 mm thick angled axial sections acquired from the foramen magnum to the vertex. Afte r the administration of intravenous contrast, 1 mm thick sections acquired through the [place] is. Postcontrast 4.5 mm thick sections then re-acquired from the foramen magnum to the vertex. 3-di mensional hfgsmfh-fgjwrrpyq-lmfohnorgw (MIP) and/or volume rendering reformats were acquired of the c entral intracranial vasculature. For radiation dose reduction, the following was used: automated ex posure control, adjustment of mA and/or kV according to patient size. COMPARISON: Correlation is made with the accompanying neck CT angiogram, 06/02/2022. Correlation is a lso made to the prior head CT, 01/14/2022. FINDINGS: Image quality: The study is compromised by patient motion artifact. Anterior circulation: Intracranial internal carotid arteries demonstrate generalized atherosclerotic calcification, with approximately 50% narrowing seen on each side.. The flow within the paired ante rior cerebral arteries is normal and symmetric. The flow within the middle cerebral arteries is norm al and symmetric. The anterior communicating artery is seen. No aneurysms are seen. Posterior circulation: Visualized portions of the vertebral arteries demonstrate normal caliber, and join to form a normal appearing basilar artery. There is mildly decreased flow seen within the left posterior cerebral artery system compared to the right. No aneurysms are seen. CSF spaces: Ventricles are normal in size and shape. Basal cisterns are patent. No extra-axial flu id collections. Brain: No midline shift. No intracranial bleeds or masses. Mendez-white matter interface appears int act. Skull and face: Calvarium and facial bones appear intact, without suspicious lesions. Sinuses: Visualized sinuses and mastoids are clear. IMPRESSION: Mildly asymmetric flow within the posterior cerebral systems, slightly decreased on the left compared to the right. If clinically appropriate, please consider short-term follow-up versus MRI. Note: Case discussed by telephone with Beverley Barajas at 4:56 PM [place] time on 06/02/2022. Reviewed by: Tapan Wang MD on 06/02/2022 5:00 PM MELISSA Approved by: Tapan Wang MD on 06/02/2022 5:00 PM AKBLANCO Station ID: [id number]
[2022-06-02] MEDS ORDERED: ASPIRIN CHEW 81 MG TABLET PO STA (18:43)
[2022-06-02 19:30] VITALS: BP 135/81
== END 2022-06-02 19:46 | disposition short-term general hospital (02) ==
LOC: ED 14:53
DX: H54.10 Blindness, one eye, low vision other eye, unspecified eyes (principal); I65.21 Occlusion and stenosis of right carotid artery; I10 Essential (primary) hypertension; Z20.822 Contact with and (suspected) exposure to COVID-19
CPT/HCPCS: 36415; 70496; 70498; 80053; 83690; 85025; 85610; 87635; 93005; 99284; 99285; A9270; Q9967

== ENCOUNTER 2022-07-06 12:12 | Outpatient (CLI) | payer MEDICARE, OTHER ==
--- NOTE | 2022-07-06 13:10 | XRAY Report ---
PROCEDURE: Chest 2 View X-Ray INDICATIONS: DYSPNEA TECHNIQUE: 2 view(s) of the chest. COMPARISON: None. FINDINGS: Surgical changes and devices: None. Lungs and pleura: No pleural effusions or pneumothorax. Lungs are clear. 2 nodules in the right lat eral chest are unchanged. Mild increased interstitial markings appear chronic. Mediastinum: Mediastinal contours are normal. Heart size is normal. Bones and chest wall: No suspicious bony abnormalities. Soft tissues appear unremarkable. IMPRESSION: 1. No acute cardiopulmonary abnormality. 2. Hyperinflated lungs and interstitial prominence consistent with pulmonary emphysema. Reviewed by: Aris Gordon on 07/06/2022 1:09 PM PDT Approved by: Aris Gordon on 07/06/2022 1:09 PM PDT Station ID: [id number]
== END 2022-07-06 12:13 | disposition home or self-care (01) ==
LOC: DI 12:12
PROVIDERS: ATTEND Internal Medicine
DX: R91.8 Other nonspecific abnormal finding of lung field (principal)
CPT/HCPCS: 36415; 85379

== ENCOUNTER 2022-07-06 16:37 | Emergency (ER) | payer MEDICARE, OTHER ==
--- NOTE | 2022-07-06 17:08 | ED Physician Documentation ---
History of Present Illness - Stated complaint Stated Complaint: SOA - Chief complaint Chief Complaint: Resp - Additonal information Additional information: 81-year-old female was referred to the emergency department for evaluation of worsening dyspnea. I did see the patient on 27 May after she had loss of eyesight. 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 She was airlifted to [facility] where she had carotid artery stenting placed. At baseline she does have a history of hypertension as well as COPD. She is on 2 L nasal cannula. She states that since hospitalization she has had worsening exertional dyspnea. She often checks her oxygen levels at home and finds that she is not hypoxic. No unilateral leg swelling, no chest pain or hemoptysis. She has discussed this concern with her primary care provider and they ordered a D-dimer. It was noted to be 256. Age-adjusted normal for this patient would be over 400. Review of Systems Constitutional: denies: Fever, Chills Eyes: reports: Reviewed and negative Nose: reports: Reviewed and negative Throat: reports: Reviewed and negative Cardiac: denies: Chest pain / pressure, Palpitations, Pedal edema, Calf pain Respiratory: reports: Dyspnea. denies: Cough, Hemoptysis GI: reports: Reviewed and negative : reports: Reviewed and negative Skin: reports: Reviewed and negative PD PAST MEDICAL HISTORY - Past Medical History Cardiovascular: High cholesterol Respiratory: COPD Neuro: TIA Endocrine/Autoimmune: None GI: None RUBBER ATTACHER: None : None HEENT: None Psych: None Musculoskeletal: None Derm: None - Past Surgical History Past Surgical History: Yes /RUBBER ATTACHER: Hysterectomy - Present Medications Home Medications: Ambulatory Orders Medication Instructions Recorded Confirmed Atorvastatin Calcium [Lipitor] 40 mg PO DAILY 10/09/14 10/09/14 dexAMETHasone [Decadron] 4 mg PO DAILY #5 tablet 10/10/14 traMADol [Ultram] 50 mg PO Q4-6H PRN #25 tablet 10/10/14 Cetirizine [ZyrTEC] 10 mg PO DAILY #15 tablet 05/12/22 Clotrimazole 4 drops RIGHTEAR TID 5 Days #10 ml 05/12/22 - Allergies Allergies/Adverse Reactions: Allergies Allergy/AdvReac Type Severity Reaction Status Date / Time No Known Drug Allergies Allergy Verified 07/06/22 16:48 - Social History Does the pt smoke?: No Smoking Status: Never smoker Does the pt drink ETOH?: No Does the pt have substance abuse?: No - Immunizations Immunizations are current?: Yes - POLST Patient has POLST: No PD ED PE NORMAL - General General: Alert and oriented X 3, No acute distress, Well developed/nourished - HEENT HEENT: Atraumatic, Moist mucous membranes - Neck Neck: Supple, no meningeal sign - Cardiac Cardiac: RRR, No murmur, No gallop - Respiratory Respiratory: No respiratory distress, Clear bilaterally - Abdomen Abdomen: Normal bowel sounds, Soft - Back Back: No CVA TTP - Derm Derm: Normal color, Warm and dry, No rash - Extremities Extremities: No deformity - Neuro Neuro: Alert and oriented X 3, director of radiology 2-12 intact Eye Opening: Spontaneous Motor: Obeys Commands Verbal: Oriented GCS Score: 15 Results - Vitals Vitals: Vital Signs - 24 hr 07/06/22 07/06/22 16:43 17:54 Temperature 36.0 C L Heart Rate 97 80 Respiratory 20 20 Rate Blood Pressure 124/73 132/76 H O2 Saturation 100 100 Oxygen O2 Source Nasal cannula - EKG (time done) 1645 Rate: Rate (enter#) (93) Rhythm: NSR Bruce: Normal Intervals: Normal [place] QRS: Normal Ischemia: Normal ST segments Compare to prior EKG: Unchanged from prior EKG Computer interpretation: Agree with computer - Labs Labs: Laboratory Tests 07/06/22 07/06/22 07/06/22 17:03 17:03 17:03 WBC 9.6 RBC 3.21 L Hgb 8.6 L Hct 27.8 L MCV 86.6 MCH 26.8 L MCHC 30.9 L RDW 16.7 H Plt Count 259 MPV 8.6 Neut # (Auto) 7.4 H Lymph # (Auto) 0.9 L [place] # (Auto) 0.9 Eos # (Auto) 0.2 Baso # (Auto) 0.0 Absolute Nucleated RBC 0.00 Nucleated RBC % 0.0 Sodium 137 Potassium 4.0 Chloride 101 Carbon Dioxide 28 Anion Gap 8.0 BUN 45 H Creatinine 1.2 H Estimated GFR (MDRD) 43 L Glucose 117 H Calcium 8.8 Total Bilirubin 0.6 AST 24 ALT 33 Alkaline Phosphatase 61 Troponin I High Sens 6.2 B-Natriuretic Peptide Total Protein 6.0 L Albumin 3.4 Globulin 2.6 Albumin/Globulin Ratio 1.3 Lipase 46 07/06/22 17:03 WBC RBC Hgb Hct MCV MCH MCHC RDW Plt Count MPV Neut # (Auto) Lymph # (Auto) [place] # (Auto) Eos # (Auto) Baso # (Auto) Absolute Nucleated RBC Nucleated RBC % Sodium Potassium Chloride Carbon Dioxide Anion Gap BUN Creatinine Estimated GFR (MDRD) Glucose Calcium Total Bilirubin AST ALT Alkaline Phosphatase Troponin I High Sens B-Natriuretic Peptide 68 Total Protein Albumin Globulin Albumin/Globulin Ratio Lipase PD MEDICAL DECISION MAKING - ED course Complexity details: reviewed results, re-evaluated patient, considered differential, d/w patient ED course: 81-year-old female who has a history of COPD oxygen dependent on 2 L and hypertension presents emergency department for concerns of an elevated D-dimer. She has been having worsening dyspnea after being hospitalized for a right carotid artery occlusion. She is status post stenting. Outpatient provider ordered a D-dimer and was noted to be elevated at 256. This is just past the cutoff for normal but in an 79-year-old patient age-adjusted D-dimer would be up to 400. Here in the emergency department she is not hypoxic. Her blood count shows no anemia. Her electrolytes are unremarkable. Troponin and BNP are not elevated. Chest x-ray is without acute focal findings. She does have some baseline mild renal insufficiency and given the normal D-dimer for age I discussed with patient that it was not likely she has a pulmonary embolus. I suspect deconditioning after recent hospitalization and/or worsening COPD. She is to follow-up closely with her primary care provider. Emergent return precautions otherwise discussed Departure - Departure Disposition: Home, Self Care Clinical Impression: History of COPD, On home oxygen therapy Dyspnea Qualifiers: Dyspnea type: dyspnea on exertion Qualified Code(s): R06.09 - Other forms of dyspnea Anemia Qualifiers: Anemia type: unspecified type Qualified Code(s): D64.9 - Anemia, unspecified Chronic kidney disease Qualifiers: Chronic kidney disease stage: unspecified stage Qualified Code(s): N18.9 - Chronic kidney disease, unspecified Comments: Hima, you are seen today because you have had worsening shortness of air with ambulation after recent hospitalization, the value is normal for age. This makes a pulmonary embolus very unlikely. You do have some mild anemia which could be contributing to the shortness of air. You could also be having worsening COPD. It does not appear as though you are having a heart attack or stroke. It is important to discuss this ED visit with your primary doctor. You may benefit from adjustment of your COPD medications at home. Return to the emergency department if you have worsening symptoms, severe chest pain any fainting episodes or find that you have to increase your oxygen requirements at home
[2022-07-06 17:09] LABS: BASOPHILS % (AUTO) 0.2 %; EOSINOPHILS # (AUTO) 0.2 10^3/uL (0.0-0.7); HCT - HEMATOCRIT 27.8 % (37.0-47.0); HGB - HEMOGLOBIN 8.6 g/dL (12.0-16.0); LYMPHOCYTES # (AUTO) 0.9 10^3/uL (1.5-3.5); LYMPHOCYTES % (AUTO) 9.2 %; MEAN CORPUSCULAR HEMOGLOBIN 26.8 pg (27.0-31.0); MEAN CORPUSCULAR HGB CONC 30.9 g/dL (32.0-36.0); MEAN CORPUSCULAR VOLUME 86.6 fL (81.0-99.0); MEAN PLATELET VOLUME 8.6 fL (7.9-10.8); MONOCYTES # (AUTO) 0.9 10^3/uL (0.0-1.0); MONOCYTES % (AUTO) 9.8 %; NEUTROPHILS # (AUTO) 7.4 10^3/uL (1.5-6.6); NEUTROPHILS % (AUTO) 77.9 %; PLT - PLATELET COUNT 259 10^3/uL (130-450); RED BLOOD COUNT 3.21 10^6/uL (4.20-5.40); RED CELL DISTRIBUTION WIDTH 16.7 % (12.0-15.0); WHITE BLOOD COUNT 9.6 x10^3/uL (4.8-10.8)
[2022-07-06 17:22] LABS: ALBUMIN 3.4 g/dL (3.2-5.5); ALBUMIN/GLOBULIN RATIO 1.3 (1.0-2.2); BILIRUBIN,TOTAL 0.6 mg/dL (0.2-1.0); CALCIUM 8.8 mg/dL (8.5-10.3); CREATININE 1.2 mg/dL (0.4-1.0)
--- NOTE | 2022-07-06 17:36 | XRAY Report ---
PROCEDURE: Chest 1 View X-Ray INDICATIONS: chest pain TECHNIQUE: One view of the chest was acquired. COMPARISON: 07/06/2022 FINDINGS: Surgical changes and devices: Surgical clips project over the right lung apex. Lungs and pleura: Peripheral right-sided calcified granulomas. Hyperinflation chronic interstitial c hanges Mediastinum: Mediastinal contours appear normal. Heart size is normal. Atherosclerotic vascular ca lcification noted in the aortic arch. Bones and chest wall: No suspicious bony lesions. Overlying soft tissues appear unremarkable. IMPRESSION: No acute cardiopulmonary findings. No change from the prior exam Reviewed by: Juvenal Pinedo MD on 07/06/2022 4:35 PM AKDT Approved by: Juvenal Pinedo MD on 07/06/2022 4:35 PM AKDT Station ID: [id number]
[2022-07-06 18:46] VITALS: BP 130/74
== END 2022-07-06 18:45 | disposition home or self-care (01) ==
LOC: ED 16:37
DX: J44.9 Chronic obstructive pulmonary disease, unspecified (principal); D64.9 Anemia, unspecified; N18.9 Chronic kidney disease, unspecified; Z99.81 Dependence on supplemental oxygen; R19.01 Right upper quadrant abdominal swelling, mass and lump
CPT/HCPCS: 36415; 80053; 83690; 83880; 84484; 85025; 85379; 93005; 99284

== ENCOUNTER 2022-07-07 13:34 | Outpatient (CLI) | payer MEDICARE, OTHER ==
--- NOTE | 2022-07-07 15:32 | CT Report ---
PROCEDURE: ANGIO CHEST W/WO INDICATIONS: ELEVATED D DIMER, DYSPNEA CONTRAST: IV CONTRAST: Optiray 320 ml: 80 PO CONTRAST: *NO PO CONTRAST TECHNIQUE: After the administration of intravenous contrast, 2 mm axial images were acquired from the pulmonary apices to the posterior costophrenic angles during the arterial phase. In addition, 1 mm lung kernel and 5 mm soft tissue kernel reconstructions were performed. 3-dimensional coronal oblique maximum int ensity projection (MIP) reformats, 8 mm axial MIP, and 5 mm coronal and sagittal MPR reformats were t hen performed through the thorax. For radiation dose reduction, the following was used: automated exp osure control, adjustment of mA and/or kV according to patient size. COMPARISON: CT of the chest dated 06/09/2020 FINDINGS: Image quality: Excellent. Pulmonary arteries: Pulmonary arteries are normal in size, and demonstrate no intraluminal filling d efects to suggest central pulmonary embolism. Lungs and pleura: The lungs have centrilobular emphysematous changes in the upper lung katz. There is a 1.2 cm spiculated mass in the right upper lobe anteriorly which is larger compared to 06/09/2021 a nd measured. Biapical scarring is unchanged.. Multiple calcified nodules are seen in the right lower lobe laterally.. No pleural effusions or pneumothorax. Central and peripheral airways are patent. Mediastinum: Heart size is normal, without pericardial effusion. Coronary artery calcifications and stents are noted. No mediastinal or hilar adenopathy. Thoracic aorta is normal in caliber and enhanc ement. Esophagus is normal in caliber, without hiatal hernia. Bones and chest wall: No suspicious bony lesions. Ribs and thoracic spine appear intact throughout. No axillary or supraclavicular adenopathy. The thyroid is normal in size and there are no incident al findings. Abdomen: Visualized upper abdominal solid organs appear normal in the early arterial phase of enhanc ement. IMPRESSION: 1. No pulmonary embolism. 2. Centrilobular emphysematous changes. 3. Spiculated mass in the anterior right upper lobe is larger compared to the prior CT measuring 1.2 cm compared to 0.9 cm on 06/09/2020. 4. Calcified granulomas in the right lower lobe near the major fissure are unchanged and likely benig n. CLINICAL RECOMMENDATION STATEMENTS: In patients <35 years with an ITN detected on CT, MRI, or extrathyroidal ultrasound, the Committee re commends further evaluation with dedicated thyroid ultrasound if the nodule is "e1 cm and has no susp icious imaging features, and if the patient has normal life expectancy. In patients "e35 years with an ITN detected on CT, MRI, or extrathyroidal ultrasound, the Committee r ecommends further evaluation with dedicated thyroid ultrasound if the nodule is "e1.5 cm and has no s uspicious imaging features, and if the patient has normal life expectancy. (ACR, 2014) Reviewed by: Aris Gordon on 07/07/2022 3:31 PM PDT Approved by: Aris Gordon on 07/07/2022 3:31 PM PDT Station ID: [id number]
== END 2022-07-07 13:35 | disposition home or self-care (01) ==
LOC: DI 13:34
PROVIDERS: ATTEND Internal Medicine
DX: J43.9 Emphysema, unspecified (principal); R91.8 Other nonspecific abnormal finding of lung field
CPT/HCPCS: 71275; Q9967

== ENCOUNTER 2022-07-15 12:13 | Outpatient (CLI) | payer MEDICARE, OTHER ==
[2022-07-15 12:51] LABS: CALCIUM 9.1 mg/dL (8.5-10.3); CREATININE 1.3 mg/dL (0.4-1.0); POTASSIUM 3.8 mmol/L (3.5-5.0)
== END 2022-07-15 12:14 | disposition home or self-care (01) ==
LOC: LAB 12:13
PROVIDERS: ATTEND Physician Assistant
DX: I50.32 Chronic diastolic (congestive) heart failure (principal)
CPT/HCPCS: 36415; 80048; 83880

== ENCOUNTER 2022-08-19 15:00 | Outpatient (CLI) | payer MEDICARE, OTHER ==
[2022-08-19] MEDS ORDERED: ALBUTEROL 1 PUFF INH STA (17:26)
== END 2022-08-19 15:01 | disposition home or self-care (01) ==
LOC: RT 15:00
PROVIDERS: ATTEND Internal Medicine
DX: J44.9 Chronic obstructive pulmonary disease, unspecified (principal)
CPT/HCPCS: 94060; 94729

== ENCOUNTER 2022-09-27 11:26 | Outpatient (CLI) | payer MEDICARE, OTHER ==
[2022-09-27 11:47] LABS: ABG HCO3 26.3 mmol/L (22.0-26.0); ABG PCO2 42 mmHg (34-45); ABG PH 7.42 (7.35-7.45); ABG PO2 91 mmHg (80-100); ABG TCO2 27.5 MMOL/L (21.0-29.0)
[2022-09-27 11:48] LABS: ABG BASE EXCESS 1.6 mmol/L (-2.0-3.0); ABG OXYGEN SATURATION 97 % (94-98); ALLEN TEST POSITIVE
== END 2022-09-27 11:27 | disposition home or self-care (01) ==
LOC: RT 11:26
PROVIDERS: ATTEND Internal Medicine
DX: J44.9 Chronic obstructive pulmonary disease, unspecified (principal)
CPT/HCPCS: 36600; 82803

== ENCOUNTER 2022-10-05 12:19 | Outpatient (CLI) | payer MEDICARE, OTHER ==
[2022-10-05 12:32] LABS: BASOPHILS % (AUTO) 0.4 %; EOSINOPHILS # (AUTO) 0.1 10^3/uL (0.0-0.7); EOSINOPHILS % (AUTO) 1.3 %; HCT - HEMATOCRIT 26.3 % (37.0-47.0); LYMPHOCYTES # (AUTO) 0.9 10^3/uL (1.5-3.5); LYMPHOCYTES % (AUTO) 15.9 %; MEAN CORPUSCULAR HEMOGLOBIN 19.9 pg (27.0-31.0); MEAN CORPUSCULAR HGB CONC 26.6 g/dL (32.0-36.0); MEAN CORPUSCULAR VOLUME 74.7 fL (81.0-99.0); MEAN PLATELET VOLUME 8.4 fL (7.9-10.8); MONOCYTES # (AUTO) 0.6 10^3/uL (0.0-1.0); MONOCYTES % (AUTO) 11.2 %; NEUTROPHILS # (AUTO) 3.9 10^3/uL (1.5-6.6); NEUTROPHILS % (AUTO) 70.8 %; PLT - PLATELET COUNT 261 10^3/uL (130-450); RED BLOOD COUNT 3.52 10^6/uL (4.20-5.40); RED CELL DISTRIBUTION WIDTH 25.1 % (12.0-15.0); WHITE BLOOD COUNT 5.5 x10^3/uL (4.8-10.8)
[2022-10-05 12:57] LABS: % IRON SATURATION 3 % (20-50); IRON 15 ug/dL (28-170); TOTAL IRON BINDING CAPACITY 526 ug/dL (250-450); TRANSFERRIN 376 mg/dL (192-382)
[2022-10-05 13:08] LABS: FERRITIN 12.6 ng/mL (11.0-306.8)
[2022-10-05 13:12] LABS: FOLATE 19.85 ng/mL (5.90 - >24.8)
== END 2022-10-05 12:20 | disposition home or self-care (01) ==
LOC: LAB 12:19
PROVIDERS: ATTEND Internal Medicine
DX: D50.9 Iron deficiency anemia, unspecified (principal); R06.00 Dyspnea, unspecified; R91.8 Other nonspecific abnormal finding of lung field
CPT/HCPCS: 36415; 82607; 82728; 82746; 83540; 84466; 85025

== ENCOUNTER 2022-10-19 17:07 | Outpatient (CLI) | payer MEDICARE, OTHER ==
[2022-10-19 17:25] LABS: BASOPHILS % (AUTO) 0.5 %; EOSINOPHILS % (AUTO) 0.7 %; HCT - HEMATOCRIT 32.1 % (37.0-47.0); HGB - HEMOGLOBIN 8.9 g/dL (12.0-16.0); LYMPHOCYTES # (AUTO) 1.3 10^3/uL (1.5-3.5); MEAN CORPUSCULAR HEMOGLOBIN 22.6 pg (27.0-31.0); MEAN CORPUSCULAR HGB CONC 27.7 g/dL (32.0-36.0); MEAN CORPUSCULAR VOLUME 81.5 fL (81.0-99.0); MEAN PLATELET VOLUME 8.4 fL (7.9-10.8); MONOCYTES # (AUTO) 0.6 10^3/uL (0.0-1.0); MONOCYTES % (AUTO) 9.4 %; NEUTROPHILS # (AUTO) 3.9 10^3/uL (1.5-6.6); NEUTROPHILS % (AUTO) 67.1 %; PLT - PLATELET COUNT 295 10^3/uL (130-450); RED BLOOD COUNT 3.94 10^6/uL (4.20-5.40); RED CELL DISTRIBUTION WIDTH 25.2 % (12.0-15.0); WHITE BLOOD COUNT 5.9 x10^3/uL (4.8-10.8)
[2022-10-19 18:31] LABS: PLATELET ESTIMATE, MANUAL NORMAL (130-450,000) (NORMAL); PLATELET MORPHOLOGY NORMAL APPEARANCE (NORMAL); SLIDE REVIEW? Indicated
== END 2022-10-19 17:08 | disposition home or self-care (01) ==
LOC: LAB 17:07
PROVIDERS: ATTEND Internal Medicine
DX: J44.9 Chronic obstructive pulmonary disease, unspecified (principal); I50.9 Heart failure, unspecified
CPT/HCPCS: 36415; 85025

== ENCOUNTER 2022-11-16 16:28 | Outpatient (CLI) | payer MEDICARE, OTHER ==
[2022-11-16 16:43] LABS: BASOPHILS % (AUTO) 0.1 %; EOSINOPHILS % (AUTO) 0.2 %; HGB - HEMOGLOBIN 9.7 g/dL (12.0-16.0); LYMPHOCYTES # (AUTO) 1.4 10^3/uL (1.5-3.5); LYMPHOCYTES % (AUTO) 13.6 %; MEAN CORPUSCULAR HEMOGLOBIN 22.7 pg (27.0-31.0); MEAN CORPUSCULAR HGB CONC 29.4 g/dL (32.0-36.0); MEAN CORPUSCULAR VOLUME 77.1 fL (81.0-99.0); MEAN PLATELET VOLUME 8.3 fL (7.9-10.8); MONOCYTES # (AUTO) 1.2 10^3/uL (0.0-1.0); MONOCYTES % (AUTO) 11.4 %; NEUTROPHILS # (AUTO) 7.8 10^3/uL (1.5-6.6); NEUTROPHILS % (AUTO) 74.3 %; PLT - PLATELET COUNT 442 10^3/uL (130-450); RED BLOOD COUNT 4.28 10^6/uL (4.20-5.40); RED CELL DISTRIBUTION WIDTH 21.7 % (12.0-15.0); WHITE BLOOD COUNT 10.6 x10^3/uL (4.8-10.8)
[2022-11-16 18:43] LABS: PLATELET ESTIMATE, MANUAL NORMAL (130-450,000) (NORMAL); PLATELET MORPHOLOGY NORMAL APPEARANCE (NORMAL); SLIDE REVIEW? Indicated
== END 2022-11-16 16:29 | disposition home or self-care (01) ==
LOC: LAB 16:28
PROVIDERS: ATTEND Internal Medicine
DX: D64.9 Anemia, unspecified (principal)
CPT/HCPCS: 36415; 85025

== ENCOUNTER 2022-11-21 18:40 | Outpatient (CLI) | payer MEDICARE, OTHER ==
--- NOTE | 2022-11-22 16:36 | Ultrasound Report ---
PROCEDURE: Carotid Doppler Complete INDICATIONS: ATHEROSCLEROSIS OF R CAROTID ARTERY TECHNIQUE: Color and pulse Doppler interrogation was performed of both carotid systems, with image documentation and velocity measurements. COMPARISON: None. FINDINGS: Right side: Brachial blood pressure: 187/109 mm Hg. Common carotid artery peak systolic velocity: 72.8 cm/sec. Internal carotid artery peak systolic velocity: 109.2 cm/sec. Internal carotid artery end diastolic velocity: 34.6 cm/sec. External carotid artery peak systolic velocity: 165.3 cm/sec. ICA/CCA peak systolic ratio: 1.6 . Mendez scale imaging description: Avascular stent is noted in distal right common carotid artery. Larg e amount of atherosclerotic plaques are noted in visualized portion of right internal and external ca rotid arteries. Percent internal carotid artery stenosis: Less than 50% . Vertebral artery: Flow direction is antegrade. Left side: Brachial blood pressure: 170/96 mm Hg. Common carotid artery peak systolic velocity: 82.8 cm/sec. Internal carotid artery peak systolic velocity: 69.2 cm/sec. Internal carotid artery end diastolic velocity: 24.3 cm/sec. External carotid artery peak systolic velocity: 116.1 cm/sec. ICA/CCA peak systolic ratio: 0.8 . Mendez scale imaging description: Mild to moderate calcified plaques are seen in distal left common ca rotid artery, visualized portion of left internal and external carotid arteries. Percent internal carotid artery stenosis: Less than 50% . Vertebral artery: Flow direction is antegrade. IMPRESSION: 1. Less than 50% stenosis are seen in bilateral proximal internal carotid arteries. 2. Significant calcified plaques are noted in bilateral carotid arteries worse on the right side. 3. Right distal common carotid artery stent in place and is patent. The estimate of stenosis included in the report of the imaging study was calculated using the NASCET method Reviewed by: Tj Michel MD on 11/22/2022 4:35 PM PST Approved by: Tj Michel MD on 11/22/2022 4:35 PM PST Station ID: [id number]
== END 2022-11-21 18:41 | disposition home or self-care (01) ==
LOC: DI 18:40
PROVIDERS: ATTEND Physician Assistant
DX: I65.23 Occlusion and stenosis of bilateral carotid arteries (principal)
CPT/HCPCS: 93880

== ENCOUNTER 2022-11-29 16:42 | Outpatient (CLI) | payer MEDICARE, OTHER ==
[2022-11-29 16:58] LABS: BASOPHILS % (AUTO) 0.1 %; HCT - HEMATOCRIT 32.6 % (37.0-47.0); HGB - HEMOGLOBIN 9.3 g/dL (12.0-16.0); LYMPHOCYTES # (AUTO) 0.4 10^3/uL (1.5-3.5); LYMPHOCYTES % (AUTO) 3.2 %; MEAN CORPUSCULAR HEMOGLOBIN 21.3 pg (27.0-31.0); MEAN CORPUSCULAR HGB CONC 28.5 g/dL (32.0-36.0); MEAN CORPUSCULAR VOLUME 74.8 fL (81.0-99.0); MEAN PLATELET VOLUME 8.4 fL (7.9-10.8); MONOCYTES # (AUTO) 0.2 10^3/uL (0.0-1.0); MONOCYTES % (AUTO) 1.7 %; NEUTROPHILS # (AUTO) 11.7 10^3/uL (1.5-6.6); NEUTROPHILS % (AUTO) 94.6 %; PLT - PLATELET COUNT 413 10^3/uL (130-450); RED BLOOD COUNT 4.36 10^6/uL (4.20-5.40); RED CELL DISTRIBUTION WIDTH 20.7 % (12.0-15.0); WHITE BLOOD COUNT 12.3 x10^3/uL (4.8-10.8)
== END 2022-11-29 16:43 | disposition home or self-care (01) ==
LOC: LAB 16:42
PROVIDERS: ATTEND Internal Medicine
DX: D64.9 Anemia, unspecified (principal)
CPT/HCPCS: 36415; 85025

== ENCOUNTER 2022-12-07 15:02 | Outpatient (CLI) | payer MEDICARE, OTHER ==
[2022-12-07 15:36] LABS: CREATININE 1.1 mg/dL (0.4-1.0)
[2022-12-07] MEDS ORDERED: iohexoL-300 100 ML VIAL IVP ONE (16:52)
--- NOTE | 2022-12-07 17:59 | CT Report ---
PROCEDURE: ANGIO CHEST W/WO INDICATIONS: CHEST PAIN, DYSPNEA CONTRAST: 80ml Omnipaque 300 TECHNIQUE: After the administration of intravenous contrast, 2 mm axial images were acquired from the pulmonary apices to the posterior costophrenic angles during the arterial phase. In addition, 1 mm lung kernel and 5 mm soft tissue kernel reconstructions were performed. 3-dimensional coronal oblique maximum int ensity projection (MIP) reformats, 8 mm axial MIP, and 5 mm coronal and sagittal MPR reformats were t hen performed through the thorax. For radiation dose reduction, the following was used: automated exp osure control, adjustment of mA and/or kV according to patient size. COMPARISON: CT anterior chest dated 07/07/2022. FINDINGS: Image quality: Excellent. Pulmonary arteries: Pulmonary arteries are normal in size, and demonstrate no intraluminal filling d efects to suggest central pulmonary embolism. Lungs and pleura: Patient is status post right lobectomy. Pulmonary scar and suture is now present. P leural effusion is present within the resection cavity. A 6 mm pulmonary nodule is present along the anterior aspect of the right lower lobe (series 6/image 149). This measured [address] comparison [address] udy dated 07/07/2022. There is a new 6 mm pulmonary nodule at the lateral right lower lobe (series 6/im age 192). Some calcified granulomas are redemonstrated. No acute airspace opacities. No left pleural effusion. No pneumothorax. No pleural effusions or pneumothorax. Central and peripheral airways are patent. Mediastinum: Heart size is normal, without pericardial effusion. No mediastinal or hilar adenopathy . Thoracic aorta is normal in caliber and enhancement. Scattered atheromatous calcifications are pre sent throughout the thoracic aorta. Esophagus is normal in caliber, without hiatal hernia. Bones and chest wall: Sclerotic focus is redemonstrated within the posterior aspect of the right six th rib (series 5/image 37). No suspicious bony lesions. Ribs and thoracic spine appear intact throug hout. No axillary or supraclavicular adenopathy. The thyroid is normal in size and there are no inc idental findings. Abdomen: Visualized upper abdominal solid organs appear normal in the early arterial phase of enhanc ement. IMPRESSION: 1. No acute pulmonary embolus. 2. Postsurgical change. 3. 6 mm pulmonary nodules within the right lower lobe, one of which is new when compared with the umang dy dated 07/07/2022. 6 month follow-up is recommended to ensure stability or resolution of these findin gs. CLINICAL RECOMMENDATION STATEMENTS: In patients <35 years with an ITN detected on CT, MRI, or extrathyroidal ultrasound, the Committee re commends further evaluation with dedicated thyroid ultrasound if the nodule is "e1 cm and has no susp icious imaging features, and if the patient has normal life expectancy. In patients "e35 years with an ITN detected on CT, MRI, or extrathyroidal ultrasound, the Committee r ecommends further evaluation with dedicated thyroid ultrasound if the nodule is "e1.5 cm and has no s uspicious imaging features, and if the patient has normal life expectancy. (ACR, 2014) Reviewed by: Darlene Abarca MD on 12/07/2022 5:58 PM PST Approved by: Darlene Abarca MD on 12/07/2022 5:58 PM PST Station ID: [id number]
== END 2022-12-07 15:03 | disposition home or self-care (01) ==
LOC: LAB 15:02
PROVIDERS: ATTEND Internal Medicine
DX: R07.9 Chest pain, unspecified (principal); R06.00 Dyspnea, unspecified; Z79.899 Other long term (current) drug therapy; R91.8 Other nonspecific abnormal finding of lung field
CPT/HCPCS: 36415; 71275; 82565; Q9967

== ENCOUNTER 2022-12-12 13:58 | Outpatient (CLI) | payer MEDICARE, OTHER ==
[2022-12-12 14:11] LABS: BASOPHILS % (AUTO) 0.2 %; EOSINOPHILS # (AUTO) 0.1 10^3/uL (0.0-0.7); EOSINOPHILS % (AUTO) 1.2 %; HCT - HEMATOCRIT 31.5 % (37.0-47.0); HGB - HEMOGLOBIN 8.8 g/dL (12.0-16.0); LYMPHOCYTES # (AUTO) 0.7 10^3/uL (1.5-3.5); LYMPHOCYTES % (AUTO) 13.5 %; MEAN CORPUSCULAR HEMOGLOBIN 20.5 pg (27.0-31.0); MEAN CORPUSCULAR HGB CONC 27.9 g/dL (32.0-36.0); MEAN CORPUSCULAR VOLUME 73.4 fL (81.0-99.0); MEAN PLATELET VOLUME 7.9 fL (7.9-10.8); MONOCYTES # (AUTO) 0.6 10^3/uL (0.0-1.0); NEUTROPHILS # (AUTO) 3.8 10^3/uL (1.5-6.6); NEUTROPHILS % (AUTO) 73.5 %; PLT - PLATELET COUNT 317 10^3/uL (130-450); RED BLOOD COUNT 4.29 10^6/uL (4.20-5.40); RED CELL DISTRIBUTION WIDTH 18.6 % (12.0-15.0); WHITE BLOOD COUNT 5.2 x10^3/uL (4.8-10.8)
[2022-12-13 17:44] LABS: CALCIUM 9.2 mg/dL (8.5-10.3); POTASSIUM 3.8 mmol/L (3.5-5.0)
== END 2022-12-12 13:59 | disposition home or self-care (01) ==
LOC: LAB 13:58
PROVIDERS: ATTEND Internal Medicine Cardiovascular Disease
DX: D64.9 Anemia, unspecified (principal); I50.32 Chronic diastolic (congestive) heart failure; R07.89 Other chest pain
CPT/HCPCS: 36415; 80048; 83880; 85025

== ENCOUNTER 2022-12-30 10:50 | Outpatient (CLI) | payer MEDICARE, OTHER ==
[2022-12-30 11:03] LABS: BASOPHILS % (AUTO) 0.6 %; EOSINOPHILS % (AUTO) 0.4 %; HCT - HEMATOCRIT 29.2 % (37.0-47.0); HGB - HEMOGLOBIN 8.2 g/dL (12.0-16.0); LYMPHOCYTES # (AUTO) 0.9 10^3/uL (1.5-3.5); LYMPHOCYTES % (AUTO) 18.3 %; MEAN CORPUSCULAR HEMOGLOBIN 19.6 pg (27.0-31.0); MEAN CORPUSCULAR HGB CONC 28.1 g/dL (32.0-36.0); MEAN CORPUSCULAR VOLUME 69.9 fL (81.0-99.0); MEAN PLATELET VOLUME 7.9 fL (7.9-10.8); MONOCYTES # (AUTO) 0.6 10^3/uL (0.0-1.0); MONOCYTES % (AUTO) 11.3 %; NEUTROPHILS # (AUTO) 3.4 10^3/uL (1.5-6.6); NEUTROPHILS % (AUTO) 69.2 %; PLT - PLATELET COUNT 345 10^3/uL (130-450); RED BLOOD COUNT 4.18 10^6/uL (4.20-5.40); RED CELL DISTRIBUTION WIDTH 18.6 % (12.0-15.0)
[2022-12-30 11:05] LABS: SLIDE REVIEW? Indicated
[2022-12-30 11:20] LABS: PLATELET ESTIMATE, MANUAL NORMAL (130-450,000) (NORMAL); PLATELET MORPHOLOGY NORMAL APPEARANCE (NORMAL)
== END 2022-12-30 10:51 | disposition home or self-care (01) ==
LOC: LAB 10:50
PROVIDERS: ATTEND Internal Medicine
DX: D64.9 Anemia, unspecified (principal)
CPT/HCPCS: 36415; 85025

== ENCOUNTER 2023-01-04 15:06 | Outpatient (CLI) | payer MEDICARE, OTHER ==
[2023-01-04] MEDS: ALBUTEROL 1 PUFF INH STA (16:46)
== END 2023-01-04 15:07 | disposition home or self-care (01) ==
LOC: RT 15:06
PROVIDERS: ATTEND Internal Medicine
DX: J44.9 Chronic obstructive pulmonary disease, unspecified (principal)
CPT/HCPCS: 94060

== ENCOUNTER 2023-01-13 13:15 | Outpatient (CLI) | payer MEDICARE, OTHER ==
[2023-01-13 17:46] LABS: ABSOLUTE RETICS # AUTO 0.107 10^6/uL (0.020-0.110); BASOPHILS % (AUTO) 0.4 %; EOSINOPHILS % (AUTO) 0.6 %; HCT - HEMATOCRIT 30.6 % (37.0-47.0); HGB - HEMOGLOBIN 8.7 g/dL (12.0-16.0); LYMPHOCYTES # (AUTO) 0.7 10^3/uL (1.5-3.5); LYMPHOCYTES % (AUTO) 12.8 %; MEAN CORPUSCULAR HEMOGLOBIN 22.5 pg (27.0-31.0); MEAN CORPUSCULAR HGB CONC 28.4 g/dL (32.0-36.0); MEAN CORPUSCULAR VOLUME 79.3 fL (81.0-99.0); MEAN PLATELET VOLUME 9.5 fL (7.9-10.8); MONOCYTES # (AUTO) 0.5 10^3/uL (0.0-1.0); MONOCYTES % (AUTO) 8.9 %; NEUTROPHILS # (AUTO) 3.9 10^3/uL (1.5-6.6); NEUTROPHILS % (AUTO) 77.1 %; PLT - PLATELET COUNT 294 10^3/uL (130-450); RED BLOOD COUNT 3.86 10^6/uL (4.20-5.40); RED CELL DISTRIBUTION WIDTH 29.7 % (12.0-15.0); RETICULOCYTE COUNT % (AUTO) 2.76 % (0.5-2.3); WHITE BLOOD COUNT 5.1 x10^3/uL (4.8-10.8)
[2023-01-13 18:05] LABS: % IRON SATURATION 15 % (20-50); IRON 64 ug/dL (28-170); TOTAL IRON BINDING CAPACITY 437 ug/dL (250-450); TRANSFERRIN 312 mg/dL (192-382)
[2023-01-13 18:50] LABS: PLATELET ESTIMATE, MANUAL NORMAL (130-450,000) (NORMAL); PLATELET MORPHOLOGY NORMAL APPEARANCE (NORMAL); SLIDE REVIEW? Indicated
== END 2023-01-13 13:30 | disposition home or self-care (01) ==
LOC: LAB.N 13:15
PROVIDERS: ATTEND Family Medicine
DX: D50.9 Iron deficiency anemia, unspecified (principal)
CPT/HCPCS: 36415; 82728; 83540; 84466; 85025; 85045

== ENCOUNTER 2023-01-16 14:18 | Outpatient (CLI) | payer MEDICARE, OTHER ==
--- NOTE | 2023-01-16 21:28 | DEXA Report ---
PROCEDURE: Dexa Spine and/or Hip INDICATIONS: OSTEOPOROSIS TECHNIQUE: Dual energy x-ray absorptiometry (DXA) was performed on a [employer] System. Regions measur ed are the AP Spine, femoral neck, and if needed forearm. COMPARISON: DEXA 06/26/2020 FINDINGS: Lumbar Spine: Bone Mineral Density 0.871 g/cm/cm,T score -2.7, compared to -2.0 Left Femoral Neck: Bone Mineral Density 0.613 g/cm/cm, T score -3.1, compared to -2.9 Left Hip: Bone Mineral Density 0.726 g/cm/cm,T score -2.2, compared to -1.1 (T score greater or equal to -1.0: NORMAL) (T score from -1.1 to -2.4: OSTEOPENIA) (T score less than or equal to -2.5 to: OSTEOPOROSIS) Impression: Osteoporosis is present within the spine and femoral neck with severe osteopenia in the left hip, als o progressive compared to prior exam. Patients with diagnosis of osteoporosis or osteopenia should have regular bone mineral density assess ment. For those eligible for Medicare, routine testing is allowed once every 2 years. Testing frequ ency can be increased for patients who have rapidly progressing disease or for those who are receivin g medical therapy to restore bone mass. Reviewed by: Shannon Quinones MD on 01/16/2023 9:26 PM PDT Approved by: Shannon Quinones MD on 01/16/2023 9:26 PM PDT Station ID: [id number]
== END 2023-01-16 14:19 | disposition home or self-care (01) ==
LOC: DI 14:18
PROVIDERS: ATTEND Internal Medicine
DX: M81.0 Age-related osteoporosis without current pathological fracture (principal)

== ENCOUNTER 2023-02-16 08:00 | Outpatient (CLI) | payer MEDICARE, OTHER ==
[2023-02-17 00:18] LABS: BACTERIAL VAGINOSIS DNA POSITIVE (NEGATIVE); CANDIDA GLABRATA DNA NEGATIVE (NEGATIVE); CANDIDA GROUP DNA NEGATIVE (NEGATIVE); CANDIDA KRUSEI DNA NEGATIVE (NEGATIVE); TRICHOMONAS VAGINALIS DNA NEGATIVE (NEGATIVE)
== END 2023-02-16 23:59 | disposition home or self-care (01) ==
LOC: LAB.WCP 08:00
PROVIDERS: ATTEND Physician Assistant
DX: N95.2 Postmenopausal atrophic vaginitis (principal); N89.8 Other specified noninflammatory disorders of vagina
CPT/HCPCS: 81514

== ENCOUNTER 2023-06-08 15:29 | Outpatient (CLI) | payer MEDICARE, OTHER ==
[2023-06-08 16:05] LABS: CREATININE 1.3 mg/dL (0.6-1.3)
== END 2023-06-08 15:30 | disposition home or self-care (01) ==
LOC: LAB 15:29
PROVIDERS: ATTEND Internal Medicine
DX: C34.11 Malignant neoplasm of upper lobe, right bronchus or lung (principal); J43.9 Emphysema, unspecified
CPT/HCPCS: 36415; 82565

== ENCOUNTER 2023-07-11 18:26 | Outpatient (CLI) | payer MEDICARE, OTHER ==
--- NOTE | 2023-07-12 09:47 | Ultrasound Report ---
PROCEDURE: Carotid Doppler Complete INDICATIONS: CAROTID STENOSIS TECHNIQUE: Color and pulse Doppler interrogation was performed of both carotid systems, with image documentation and velocity measurements. COMPARISON: Prior carotid duplex Doppler examination dated 11/21/2022 FINDINGS: Right side: Brachial blood pressure: 149/75 mm Hg. Common carotid artery peak systolic velocity: 68 cm/sec. Internal carotid artery peak systolic velocity: 98 cm/sec. Internal carotid artery end diastolic velocity: 31 cm/sec. External carotid artery peak systolic velocity: 89 cm/sec. ICA/CCA peak systolic ratio: 1.5 . Mendez scale imaging description: Heavy scattered plaque and carotid stent is present which is patent. Percent internal carotid artery stenosis: Less than 50 percent stenosis. Vertebral artery: Flow direction is antegrade. Left side: Brachial blood pressure: 122/74 mm Hg. Common carotid artery peak systolic velocity: 61 cm/sec. Internal carotid artery peak systolic velocity: 67 cm/sec. Internal carotid artery end diastolic velocity: 23 cm/sec. External carotid artery peak systolic velocity: 68 cm/sec. ICA/CCA peak systolic ratio: 1.1 . Mendez scale imaging description: Heavy scattered plaque. Percent internal carotid artery stenosis: Less than 50 percent stenosis. Vertebral artery: Flow direction is antegrade. IMPRESSION: 1. Less than 50% bilateral internal carotid artery stenosis The estimate of stenosis included in the report of the imaging study was calculated using the [facility]-end orsed standards of carotid artery stenosis. Reviewed by: SLIM Fonseca on 07/12/2023 9:45 AM PDT Approved by: Jonathan Boswell MD on 07/12/2023 9:45 AM PDT Station ID: [id number]
== END 2023-07-11 18:27 | disposition home or self-care (01) ==
LOC: DI 18:26
PROVIDERS: ATTEND Physician Assistant
DX: I65.23 Occlusion and stenosis of bilateral carotid arteries (principal)
CPT/HCPCS: 93880

== ENCOUNTER 2023-07-19 13:18 | Emergency (ER) | payer MEDICARE, OTHER ==
[2023-07-19 13:54] LABS: BASOPHILS % (AUTO) 0.7 %; EOSINOPHILS # (AUTO) 0.1 10^3/uL (0.0-0.7); EOSINOPHILS % (AUTO) 1.7 %; HCT - HEMATOCRIT 38.6 % (37.0-47.0); HGB - HEMOGLOBIN 12.4 g/dL (12.0-16.0); LYMPHOCYTES # (AUTO) 0.7 10^3/uL (1.5-3.5); LYMPHOCYTES % (AUTO) 17.9 %; MEAN CORPUSCULAR HEMOGLOBIN 27.6 pg (27.0-31.0); MEAN CORPUSCULAR HGB CONC 32.1 g/dL (32.0-36.0); MEAN PLATELET VOLUME 8.9 fL (7.9-10.8); MONOCYTES # (AUTO) 0.6 10^3/uL (0.0-1.0); MONOCYTES % (AUTO) 14.3 %; NEUTROPHILS # (AUTO) 2.7 10^3/uL (1.5-6.6); NEUTROPHILS % (AUTO) 65.2 %; PLT - PLATELET COUNT 207 10^3/uL (130-450); RED BLOOD COUNT 4.49 10^6/uL (4.20-5.40); RED CELL DISTRIBUTION WIDTH 13.9 % (12.0-15.0); WHITE BLOOD COUNT 4.1 x10^3/uL (4.8-10.8)
[2023-07-19 14:12] LABS: ALBUMIN/GLOBULIN RATIO 1.3 (1.0-2.2); BILIRUBIN,TOTAL 0.5 mg/dL (0.2-1.0); CREATININE 1.2 mg/dL (0.6-1.3); POTASSIUM 3.8 mmol/L (3.5-4.5)
--- NOTE | 2023-07-19 14:29 | XRAY Report ---
PROCEDURE: Chest 1 View X-Ray INDICATIONS: chest pain TECHNIQUE: One view of the chest was acquired. COMPARISON: CT chest 06/13/2023. FINDINGS: Surgical changes and devices: Right upper lobectomy changes.. Lungs and pleura: Small right pleural effusion. Lungs are clear. Postsurgical changes from right lo bectomy with elevation right hemidiaphragm and scarring. Right upper lung field calcifications again seen. Mediastinum: Mediastinal contours appear normal. Heart size is normal. Bones and chest wall: No suspicious bony lesions. Overlying soft tissues appear unremarkable. IMPRESSION: Stable postsurgical changes from right lobectomy. Persistent small right pleural effusion. Otherwise, no new acute cardiac pulmonary process. Reviewed by: Robert Orantes MD on 07/19/2023 2:28 PM PDT Approved by: Robert Orantes MD on 07/19/2023 2:28 PM PDT Station ID: [id number]
[2023-07-19] MEDS ORDERED: IPRATROPIUM/ALBUTEROL 3 ML NEB INH STA (15:34)
--- NOTE | 2023-07-19 15:37 | ED Physician Documentation ---
History of Present Illness - Stated complaint Stated Complaint: SOA,BACK PX - Chief complaint Chief Complaint: Resp - Additonal information Additional information: 82-year-old female presents to the emergency department for evaluation of 2 to 3 days exertional dyspnea. The patient denies any cough or chest pain. No fevers. But she states that when she walks especially longer distance like through the supermarket or to her car she gets short of air. She does have a history of lung cancer in the right upper lobe. Status post lobectomy in November of this year. She also does have a history of COPD for which she reports compliance with her inhalers. She does have a albuterol nebulizer at home but has not used it. On presentation to the emergency department she is alert and very well- appearing. Room air saturations are 98%. No tachycardia, fever or hypotension. Review of Systems Eyes: reports: Reviewed and negative Throat: reports: Reviewed and negative Cardiac: denies: Chest pain / pressure, Palpitations Respiratory: reports: Dyspnea, Cough, Wheezing GI: reports: Reviewed and negative : reports: Reviewed and negative PD PAST MEDICAL HISTORY - Past Medical History Cardiovascular: High cholesterol Respiratory: COPD Neuro: TIA Endocrine/Autoimmune: None GI: None WAREHOUSE LOADER: None : None HEENT: None Psych: None Musculoskeletal: None Derm: None - Past Surgical History Past Surgical History: Yes /WAREHOUSE LOADER: Hysterectomy - Present Medications Home Medications: Ambulatory Orders Medication Instructions Recorded Confirmed Aspirin [Aspirin EC] 81 mg PO DAILY 09/22/22 04/21/23 Ezetimibe [Zetia] 10 mg PO DAILY 09/22/22 04/21/23 Fluticasone/Umeclidin/Vilanter 1 applic PO DAILY 09/22/22 04/21/23 [Demond Delacruz 100-62.5-25] Rosuvastatin Calcium [Crestor] 20 mg PO DAILY 09/22/22 04/21/23 Spironolactone [Aldactone] 25 mg PO DAILY 09/22/22 04/21/23 Torsemide 10 mg PO DAILY 09/22/22 04/21/23 Omeprazole 20 mg PO DAILY 02/13/23 04/21/23 Azithromycin [Zithromax] 0 mg PO DAILY #6 tablet 07/19/23 predniSONE [Deltasone] 40 mg PO DAILY 5 Days #10 tablet 07/19/23 - Allergies Allergies/Adverse Reactions: Allergies Allergy/AdvReac Type Severity Reaction Status Date / Time bacitracin AdvReac Rash Verified 07/19/23 13:22 [From Neosporin ([id number])] gabapentin AdvReac Unknown Verified 07/19/23 13:22 neomycin AdvReac Rash Verified 07/19/23 13:22 [From Neosporin ([id number])] polymyxin B AdvReac Rash Verified 07/19/23 13:22 [From Neosporin ([id number])] - Social History Does the pt smoke?: No Smoking Status: Never smoker Does the pt drink ETOH?: No Does the pt have substance abuse?: No - Immunizations Immunizations are current?: Yes - POLST Patient has POLST: No PD ED PE NORMAL - General General: Alert and oriented X 3, No acute distress - HEENT HEENT: Atraumatic, Pharynx benign - Cardiac Cardiac: RRR, No murmur - Respiratory Respiratory: No respiratory distress. No: Clear bilaterally (Faint diffuse scattered expiratory wheeze) - Abdomen Abdomen: Normal bowel sounds, Soft, Non tender, Non distended - Back Back: No CVA TTP - Derm Derm: Normal color, Warm and dry - Extremities Extremities: No deformity - Neuro Neuro: Alert and oriented X 3, digital x ray service engineer 2-12 intact Eye Opening: Spontaneous Motor: Obeys Commands Verbal: Oriented GCS Score: 15 Results - Vitals Vitals: Vital Signs - 24 hr 07/19/23 07/19/23 07/19/23 13:22 16:01 16:30 Temperature 36.8 C Heart Rate 86 65 70 Respiratory 16 16 16 Rate Blood Pressure 130/82 H O2 Saturation 98 Oxygen O2 Source Room air - Labs Labs: Laboratory Tests 07/19/23 07/19/23 13:51 13:51 WBC 4.1 L RBC 4.49 Hgb 12.4 Hct 38.6 MCV 86.0 MCH 27.6 MCHC 32.1 RDW 13.9 Plt Count 207 MPV 8.9 Neut # (Auto) 2.7 Lymph # (Auto) 0.7 L [place] # (Auto) 0.6 Eos # (Auto) 0.1 Baso # (Auto) 0.0 Absolute Nucleated RBC 0.00 Nucleated RBC % 0.0 Sodium 134 L Potassium 3.8 Chloride 99 L Carbon Dioxide 28 Anion Gap 7.0 BUN 33 H Creatinine 1.2 Estimated GFR (MDRD) 43 L Glucose 113 H Calcium 10.0 Total Bilirubin 0.5 AST 45 H ALT 40 Alkaline Phosphatase 52 Total Protein 7.0 Albumin 4.0 Globulin 3.0 Albumin/Globulin Ratio 1.3 Lipase 20 - Rads (name of study) cxr Relevant Findings:: Final report received (Stable postsurgical changes from right lobectomy. Persistent small right pleural effusion. Otherwise no acute cardiac or pulmonary process.) PD Medical Decision Making - ED course Complexity details: reviewed results, re-evaluated patient, considered differential, d/w patient ED course: Her 82-year-old female presents emergency department for evaluation of 2 days of dyspnea without hypoxia. Does have a history of lung cancer as well as COPD. Presentation to the emergency department she is alert and very well-appearing normotensive without fevers. However on exam she had diffuse expiratory wheeze. She was initially given a DuoNeb here in the emergency department which improved but did not alivn the wheeze. She remains without hypoxia. Following that is secondary nebulizer was administered with albuterol and on reevaluation the wheeze had nearly resolved. Chest x-ray today showed previous surgical changes associated with the lobectomy in the setting of previous cancer. There is a small pleural effusion but no acute findings. Clinically the patient does not meet criteria for admission to the hospital as there is no hypoxia. I suspect this is a COPD exacerbation. Patient will be discharged with a prescription for azithromycin and an additional 5 days of steroid. Initial dose was given here in the ER. Respiratory PCR panel is pending. Patient is advised to use her nebulizer at home every 4-6 hours. We will follow closely with PCP. The usual emergent return precautions for worsening symptoms was discussed. Departure - Departure Disposition: Home, Self Care Clinical Impression: COPD with acute exacerbation Condition: Stable Record reviewed to determine appropriate education?: Yes Instructions: ED COPD Flare Prescriptions: predniSONE [Deltasone] 40 mg PO DAILY 5 Days #10 tablet Azithromycin [Zithromax] 0 mg PO DAILY #6 tablet Comments: You have been having 2 days of increasing shortness of air. When we listen to you sounded very wheezy. You do have a history of COPD. Your chest x-ray today did not show any new findings. Your lab work also showed that you have not developed anemia as you were worried about. As discussed at the bedside the suspect that you are having a COPD exacerbation. In order to help manage this I would like you to use your nebulizer at home every 4-6 hours. Please fill the prescription for the steroids and begin taking tomorrow as directed. Your first dose was given this afternoon in the ER. We also wrote a prescription for some azithromycin, an antibiotic commonly used to treat bronchitis and COPD. If you find that you are not having improved symptoms over the next 48 to 72 hours, you develop any worsening chest pain or severe shortness of breath then p jose return immediately to the ER. Please discuss this ED visit with your primary care doctor as soon as possible. Forms: PCP List
[2023-07-19] MEDS ORDERED: predniSONE 20 MG TABLET PO STA (16:22)
[2023-07-19] MEDS ORDERED: ALBUTEROL NEB 2.5 MG/3 ML INH STA (16:22)
[2023-07-19 16:41] LABS: B. PARAPERTUSSIS- RESP PCR PAN NOT DETECTED; B. PERTUSSIS- RESP PCR PANEL NOT DETECTED; C. PNEUMONIAE- RESP PCR PANEL NOT DETECTED; CORONAVIRUS 229E-RESP PCR NOT DETECTED; CORONAVIRUS HKU1-RESP PCR NOT DETECTED; CORONAVIRUS NL63-RESP PCR NOT DETECTED; CORONAVIRUS OC43-RESP PCR NOT DETECTED; HUMAN METAPNEUMOVIRUS NOT DETECTED; INFLUENZA A- RESP PCR PANEL NOT DETECTED; INFLUENZA B - RESP PCR PANEL NOT DETECTED; M. PNEUMONIAE- RESP PCR PANEL NOT DETECTED; PARAINFLUENZA VIRUS 1 NOT DETECTED; PARAINFLUENZA VIRUS 2 NOT DETECTED; PARAINFLUENZA VIRUS 3 NOT DETECTED; PARAINFLUENZA VIRUS 4 NOT DETECTED; RHINOVIRUS/ENTEROVIRUS NOT DETECTED; RSV- RESP PCR PANEL NOT DETECTED; SARS-CoV-2 -RESP PCR PANEL NOT DETECTED
[2023-07-19 16:58] VITALS: BP 123/76; O2SAT 100
== END 2023-07-19 16:56 | disposition home or self-care (01) ==
LOC: ED 13:18
DX: J44.1 Chronic obstructive pulmonary disease with (acute) exacerbation (principal); Z20.822 Contact with and (suspected) exposure to COVID-19
CPT/HCPCS: 36415; 71045; 80053; 83690; 85025; 87633; 94640; 94664; 99282; 99284; J7512

== ENCOUNTER 2023-10-01 08:00 | Outpatient (CLI) | payer MEDICARE, OTHER ==
[2023-10-01 12:45] LABS: FECAL OCCULT BLOOD (FIT) POSITIVE (NEGATIVE)
== END 2023-10-01 23:59 | disposition home or self-care (01) ==
LOC: LAB.R 08:00
PROVIDERS: ATTEND Family Medicine
DX: K92.1 Melena (principal)
CPT/HCPCS: 82274

== ENCOUNTER 2023-10-04 16:40 | Emergency (ER) | payer MEDICARE, OTHER ==
[2023-10-04 17:48] LABS: BASOPHILS # (AUTO) 0.1 10^3/uL (0.0-0.1); BASOPHILS % (AUTO) 0.9 %; EOSINOPHILS # (AUTO) 0.6 10^3/uL (0.0-0.7); EOSINOPHILS % (AUTO) 10.5 %; HCT - HEMATOCRIT 34.7 % (37.0-47.0); HGB - HEMOGLOBIN 10.4 g/dL (12.0-16.0); LYMPHOCYTES # (AUTO) 0.9 10^3/uL (1.5-3.5); LYMPHOCYTES % (AUTO) 15.8 %; MEAN CORPUSCULAR HEMOGLOBIN 25.3 pg (27.0-31.0); MEAN CORPUSCULAR VOLUME 84.4 fL (81.0-99.0); MEAN PLATELET VOLUME 8.8 fL (7.9-10.8); MONOCYTES # (AUTO) 0.7 10^3/uL (0.0-1.0); MONOCYTES % (AUTO) 12.9 %; NEUTROPHILS # (AUTO) 3.3 10^3/uL (1.5-6.6); NEUTROPHILS % (AUTO) 59.5 %; PLT - PLATELET COUNT 301 10^3/uL (130-450); RED BLOOD COUNT 4.11 10^6/uL (4.20-5.40); WHITE BLOOD COUNT 5.5 x10^3/uL (4.8-10.8)
[2023-10-04 18:22] LABS: ALBUMIN 3.9 g/dL (3.2-5.5); ALBUMIN/GLOBULIN RATIO 1.5 (1.0-2.2); BILIRUBIN,TOTAL 0.3 mg/dL (0.2-1.0); CALCIUM 10.1 mg/dL (8.5-10.3); CREATININE 1.1 mg/dL (0.6-1.3); TOTAL PROTEIN 6.5 g/dL (6.4-8.9)
--- NOTE | 2023-10-04 18:23 | XRAY Report ---
PROCEDURE: Chest 1 View X-Ray INDICATIONS: dyspnea TECHNIQUE: One view of the chest was acquired. COMPARISON: 07/19/2023 FINDINGS: Surgical changes and devices: Right upper lobe lobectomy changes. Lungs and pleura: Postoperative changes of right lobectomy are unchanged. Scarring and tenting of th e right diaphragm. Right upper lobe nodules. Mediastinum: Mediastinal contours appear normal. Heart size is normal. Bones and chest wall: No suspicious bony lesions. Overlying soft tissues appear unremarkable. IMPRESSION: Stable postoperative changes of right lobectomy. Reviewed by: Aris Gordon on 10/04/2023 5:21 PM [facility] Approved by: Aris Gordon on 10/04/2023 5:21 PM [facility] Station ID: [id number]
[2023-10-04 18:54] VITALS: O2SAT 99
--- NOTE | 2023-10-04 19:03 | ED Physician Documentation ---
History of Present Illness - Stated complaint Stated Complaint: SOA,DIZZY,GI - Chief complaint Chief Complaint: General - Additonal information Additional information: 83-year-old female presents emergency department for evaluation of generalized weakness fatigue and mild anorexia. Symptoms have been present for about 4 days. She denies cough or fevers. No abdominal pain nausea or vomiting. She does endorse mild anorexia simply because food does not taste well. She is denying any exertional chest pain. She states that when she has felt fatigued like this in the past she is required a blood transfusion. Past medical history most significant for lung cancer in her right upper lobe. She is status post lobectomy in November 2022. She also has a history of COPD and is compliant with her inhalers. On presentation the emergency department she is alert and very well-appearing. Appears to be in no distress. Room air sats are 99%. No hypoxia, hypotension or tachycardia. Patient incidentally reports to me that she had a home fecal occult test done which her doctor reported to her as positive. She denies any melena or hematochezia. She reports she was told to come to the ER for evaluation of this. I dictated to her that appropriate follow-up would include an outpatient colonoscopy. Review of Systems Constitutional: reports: Fatigue, Weight Loss. denies: Fever Nose: reports: Reviewed and negative Throat: reports: Reviewed and negative Cardiac: denies: Chest pain / pressure, Palpitations Respiratory: reports: Dyspnea. denies: Cough, Hemoptysis, Wheezing GI: reports: Reviewed and negative : reports: Reviewed and negative PD PAST MEDICAL HISTORY - Past Medical History Past Medical History: Yes Cardiovascular: High cholesterol Respiratory: COPD Neuro: TIA Endocrine/Autoimmune: None GI: None IRRIGATOR GRAVITY FLOW: None : None HEENT: None Psych: None Musculoskeletal: None Derm: None - Past Surgical History Past Surgical History: Yes /IRRIGATOR GRAVITY FLOW: Hysterectomy - Present Medications Home Medications: Ambulatory Orders Medication Instructions Recorded Confirmed Aspirin [Aspirin EC] 81 mg PO DAILY 09/22/22 04/21/23 Ezetimibe [Zetia] 10 mg PO DAILY 09/22/22 04/21/23 Fluticasone/Umeclidin/Vilanter 1 applic PO DAILY 09/22/22 04/21/23 [Trelegy Ellipta 100-62.5-25] Rosuvastatin Calcium [Crestor] 20 mg PO DAILY 09/22/22 04/21/23 Spironolactone [Aldactone] 25 mg PO DAILY 09/22/22 04/21/23 Torsemide 10 mg PO DAILY 09/22/22 04/21/23 Omeprazole 20 mg PO DAILY 02/13/23 04/21/23 - Allergies Allergies/Adverse Reactions: Allergies Allergy/AdvReac Type Severity Reaction Status Date / Time bacitracin AdvReac Rash Verified 10/04/23 16:43 [From Neosporin ([id number])] gabapentin AdvReac Unknown Verified 10/04/23 16:43 neomycin AdvReac Rash Verified 10/04/23 16:43 [From Neosporin ([id number])] polymyxin B AdvReac Rash Verified 10/04/23 16:43 [From Neosporin ([id number])] - Social History Does the pt smoke?: No Smoking Status: Never smoker Does the pt drink ETOH?: No Does the pt have substance abuse?: No - Immunizations Immunizations are current?: Yes - POLST Patient has POLST: No PD ED PE NORMAL - General General: Alert and oriented X 3, No acute distress, Well developed/nourished - HEENT HEENT: Atraumatic, Moist mucous membranes - Neck Neck: Supple, no meningeal sign - Cardiac Cardiac: RRR, Strong equal pulses. No: No murmur (3/6 systolic murmur.) - Respiratory Respiratory: No respiratory distress - Abdomen Abdomen: Normal bowel sounds, Soft, Non tender, Non distended - Back Back: No CVA TTP - Derm Derm: Normal color, Warm and dry - Extremities Extremities: No deformity - Neuro Neuro: Alert and oriented X 3 Eye Opening: Spontaneous Motor: Obeys Commands Verbal: Oriented GCS Score: 15 Results - Vitals Vitals: Vital Signs - 24 hr 10/04/23 10/04/23 16:43 18:53 Temperature 36.5 C Heart Rate 85 70 Respiratory 24 18 Rate Blood Pressure 144/77 H O2 Saturation 95 99 Oxygen O2 Source Room air - EKG (time done) 8691 EKG releavant findings:: EKG personally interpreted by author of this note. Relevant findings are: Rate: Rate (enter#) (66) Rhythm: NSR [place]: Normal Intervals: Normal CT. No: QRS normal Compare to prior EKG: Unchanged from prior EKG Computer interpretation: Agree with computer - Labs Labs: Laboratory Tests 10/04/23 10/04/23 17:42 17:42 WBC 5.5 RBC 4.11 L Hgb 10.4 L Hct 34.7 L MCV 84.4 MCH 25.3 L MCHC 30.0 L RDW 15.0 Plt Count 301 MPV 8.8 Neut # (Auto) 3.3 Lymph # (Auto) 0.9 L [place] # (Auto) 0.7 Eos # (Auto) 0.6 Baso # (Auto) 0.1 Absolute Nucleated RBC 0.00 Nucleated RBC % 0.0 Sodium 139 Potassium 4.0 Chloride 102 Carbon Dioxide 33 H Anion Gap 4.0 L BUN 25 H Creatinine 1.1 Estimated GFR (MDRD) 47 L Glucose 92 Calcium 10.1 Total Bilirubin 0.3 AST 18 ALT 19 Alkaline Phosphatase 55 Total Protein 6.5 Albumin 3.9 Globulin 2.6 Albumin/Globulin Ratio 1.5 Lipase 33 - Rads (name of study) cxr Relevant Findings:: Final report received (Stable postoperative changes without findings suggest pneumonia or pneumothorax.) PD Medical Decision Making - ED course Complexity details: reviewed results, re-evaluated patient ED course: Well-appearing 83-year-old female presents emergency department for about 4 days of generalized fatigue weakness and some anorexia. She is reported feeling similar when she has had anemia requiring a blood transfusion. She incidentally reports to me that she was told a home stool blood test was positive and she was advised that she would need to come to the ER. Patient denies any melena or hematochezia. Here in the emergency department she is been hemodynamically stable with no hypoxia. EKG per my interpretation is nonischemic and unchanged from June of this last year. CBC shows a hemoglobin of 10 higher than previous. Her electrolytes were without acute worrisome derangement. Chest x-ray showed no findings of focal consolidation pleural effusion or pneumothorax. I am quite familiar with this patient and she appears to be at her usual baseline health. I discussed with her the findings of occult blood in her stool should be referred for an outpatient colonoscopy and 70 he was otherwise hemodynamically stable. I did offer viral testing for the patient but she declined that today. She is advised to continue her usual medications at home and watchful waiting. The usual emergent return precautions were discussed for worsening symptoms. Departure - Departure Disposition: 01 Home, Self Care Clinical Impression: Anemia Fatigue Qualifiers: Fatigue type: chronic, unspecified Qualified Code(s): R53.82 - Chronic fatigue, unspecified Condition: Stable Follow-Up: Tamela Reynoso PA-C [Primary Care Provider] - Comments: Hima lauren are seen today in the emergency department because for several days you have been feeling tired, fatigued and with poor appetite. Your chest x-ray did not show any new or worsening problems. Your hemoglobin today is 10. Well above the threshold for giving a transfusion. Your labs are otherwise without worrisome findings. You reported to me that your doctor told you your stool was positive for blood. In people who are otherwise stable such as yourself you should be referred for an outpatient colonoscopy. Please discuss this with your primary care doctor as soon as you are able in order to obtain the appropriate referrals. Return to the ER for fevers, sudden severe chest pain, fainting episodes, any labored breathing or any other new or worrisome symptoms.
[2023-10-04 19:32] VITALS: BP 143/85
== END 2023-10-04 19:28 | disposition home or self-care (01) ==
LOC: SUPCPDRO 16:40 → ED 16:40
DX: D64.9 Anemia, unspecified (principal); R53.82 Chronic fatigue, unspecified; E78.00 Pure hypercholesterolemia, unspecified; J44.9 Chronic obstructive pulmonary disease, unspecified; Z79.82 Long term (current) use of aspirin; Z79.899 Other long term (current) drug therapy
CPT/HCPCS: 36415; 80053; 83690; 85025; 93005; 99284

== ENCOUNTER 2024-01-29 12:21 | Outpatient (CLI) | payer MEDICARE, OTHER ==
[2024-01-29 12:47] LABS: BASOPHILS % (AUTO) 0.6 %; EOSINOPHILS # (AUTO) 0.1 10^3/uL (0.0-0.7); EOSINOPHILS % (AUTO) 1.3 %; HCT - HEMATOCRIT 33.2 % (37.0-47.0); HGB - HEMOGLOBIN 9.3 g/dL (12.0-16.0); LYMPHOCYTES % (AUTO) 22.2 %; MEAN CORPUSCULAR HEMOGLOBIN 20.9 pg (27.0-31.0); MEAN CORPUSCULAR VOLUME 74.8 fL (81.0-99.0); MEAN PLATELET VOLUME 8.6 fL (7.9-10.8); MONOCYTES # (AUTO) 0.5 10^3/uL (0.0-1.0); MONOCYTES % (AUTO) 11.4 %; NEUTROPHILS % (AUTO) 64.3 %; PLT - PLATELET COUNT 295 10^3/uL (130-450); RED BLOOD COUNT 4.44 10^6/uL (4.20-5.40); RED CELL DISTRIBUTION WIDTH 17.8 % (12.0-15.0); WHITE BLOOD COUNT 4.7 x10^3/uL (4.8-10.8)
[2024-01-29 12:54] LABS: % IRON SATURATION 8 % (20-50); ALBUMIN/GLOBULIN RATIO 1.5 (1.0-2.2); ALKALINE PHOSPHATASE 45 IU/L (42-121); ALT ALANINE AMINOTRANSFERASE 19 IU/L (10-60); AST ASPARTATE AMINOTRANSFERASE 19 IU/L (10-42); BILIRUBIN,TOTAL 0.4 mg/dL (0.2-1.0); BUN - BLOOD UREA NITROGEN 32 mg/dL (6-20); CALCIUM 9.8 mg/dL (8.5-10.3); CARBON DIOXIDE - CO2 28 mmol/L (21-32); CHLORIDE 104 mmol/L (101-111); CHOL/HDL RATIO 1.7 (<4.4); CHOLESTEROL 142 mg/dL; CREATININE 1.2 mg/dL (0.6-1.3); GFR - MDRD 43 (>89); GLUCOSE 87 mg/dL (74-104); HDL CHOLESTEROL 82 mg/dL; IRON 41 ug/dL (50-212); LDL CHOLESTEROL,CALCULATED 40 mg/dL; LDL/HDL RATIO 0.5 (<4.4); POTASSIUM 4.5 mmol/L (3.5-4.5); SODIUM 136 mmol/L (135-145); TOTAL IRON BINDING CAPACITY 510 ug/dL (250-450); TOTAL PROTEIN 6.6 g/dL (6.4-8.9); TRANSFERRIN 364 mg/dL (203-362); TRIGLYCERIDES 98 mg/dL (48-352); VLDL CHOLESTEROL 20 mg/dL
[2024-01-29 13:13] LABS: FERRITIN 5.8 ng/mL (11.0-306.8)
== END 2024-01-29 12:22 | disposition home or self-care (01) ==
LOC: LAB 12:21
PROVIDERS: ATTEND Physician Assistant
DX: D50.9 Iron deficiency anemia, unspecified (principal); E78.5 Hyperlipidemia, unspecified
CPT/HCPCS: 36415; 80053; 80061; 82728; 83540; 83721; 84466; 85025

== ENCOUNTER 2024-02-03 11:09 | Emergency (ER) | payer MEDICARE, OTHER ==
[2024-02-03 11:50] LABS: BASOPHILS % (AUTO) 0.6 %; EOSINOPHILS # (AUTO) 0.1 10^3/uL (0.0-0.7); EOSINOPHILS % (AUTO) 1.2 %; HCT - HEMATOCRIT 33.9 % (37.0-47.0); HGB - HEMOGLOBIN 9.5 g/dL (12.0-16.0); LYMPHOCYTES # (AUTO) 0.8 10^3/uL (1.5-3.5); LYMPHOCYTES % (AUTO) 17.1 %; MEAN CORPUSCULAR HEMOGLOBIN 20.6 pg (27.0-31.0); MEAN CORPUSCULAR VOLUME 73.4 fL (81.0-99.0); MEAN PLATELET VOLUME 8.1 fL (7.9-10.8); MONOCYTES # (AUTO) 0.6 10^3/uL (0.0-1.0); MONOCYTES % (AUTO) 12.1 %; NEUTROPHILS # (AUTO) 3.3 10^3/uL (1.5-6.6); NEUTROPHILS % (AUTO) 68.8 %; PLT - PLATELET COUNT 283 10^3/uL (130-450); RED BLOOD COUNT 4.62 10^6/uL (4.20-5.40); WHITE BLOOD COUNT 4.9 x10^3/uL (4.8-10.8)
--- NOTE | 2024-02-03 12:04 | ED Physician Documentation ---
History of Present Illness - Stated complaint Stated Complaint: SOA - Chief complaint Chief Complaint: Resp - History obtained from History obtained from: Patient - History of Present Illness Pain level max: 0 Pain level now: 0 - Additonal information Additional information: Patient is an 83-year-old female who states she has a history of COPD and chronic anemia. She used to be on iron infusions but these were stopped by her doctor. She states she is on no iron supplementation currently. She states that she has had mild increasing shortness of breath over the past 1 month. She states she had blood work with her doctor last week and was told that she has anemia, but was not told if she needs a transfusion or not. She has needed blood transfusions in the past. She has had dark stools and states that her doctor has referred her to a surgeon for a colonoscopy. She states her last colonoscopy was 1 year ago. No abdominal pain, nausea, vomiting. No chest pain. No palpitations. No fever. No cough. Not on blood thinners. Review of Systems Constitutional: denies: Fever, Chills GI: denies: Nausea, Vomiting, Diarrhea : denies: Dysuria Skin: denies: Rash Musculoskeletal: denies: Neck pain, Back pain Neurologic: denies: Headache PD PAST MEDICAL HISTORY - Past Medical History Cardiovascular: High cholesterol Respiratory: COPD Neuro: TIA Endocrine/Autoimmune: None GI: GI bleed KILN FEEDER: None : None HEENT: None Psych: None Musculoskeletal: None Derm: None - Past Surgical History Past Surgical History: Yes /KILN FEEDER: Hysterectomy - Present Medications Home Medications: Ambulatory Orders Medication Instructions Recorded Confirmed Aspirin [Aspirin EC] 81 mg PO DAILY 09/22/22 04/21/23 Ezetimibe [Zetia] 10 mg PO DAILY 09/22/22 04/21/23 Fluticasone/Umeclidin/Vilanter 1 applic PO DAILY 09/22/22 04/21/23 [Trelegy Ellipta 100-62.5-25] Rosuvastatin Calcium [Crestor] 20 mg PO DAILY 09/22/22 04/21/23 Spironolactone [Aldactone] 25 mg PO DAILY 09/22/22 04/21/23 Torsemide 10 mg PO DAILY 09/22/22 04/21/23 Omeprazole 20 mg PO DAILY 02/13/23 04/21/23 - Allergies Allergies/Adverse Reactions: Allergies Allergy/AdvReac Type Severity Reaction Status Date / Time bacitracin AdvReac Rash Verified 10/04/23 16:43 [From Neosporin ([id number])] gabapentin AdvReac Unknown Verified 10/04/23 16:43 neomycin AdvReac Rash Verified 10/04/23 16:43 [From Neosporin ([id number])] polymyxin B AdvReac Rash Verified 10/04/23 16:43 [From Neosporin ([id number])] - Social History Does the pt smoke?: No Smoking Status: Never smoker Does the pt drink ETOH?: No Does the pt have substance abuse?: No - Immunizations Immunizations are current?: Yes - POLST Patient has POLST: No PD ED PE NORMAL - Vitals Vital signs reviewed: Yes - General General: Alert and oriented X 3 - HEENT HEENT: PERRL, Moist mucous membranes - Neck Neck: Supple, no meningeal sign - Cardiac Cardiac: RRR, Other (3 out of 6 holosystolic murmur) - Respiratory Respiratory: No respiratory distress, Other (Mild wheezing bilaterally) - Abdomen Abdomen: Soft, Non tender, Non distended - Derm Derm: Warm and dry - Extremities Extremities: No edema, No calf tenderness / cord - Neuro Neuro: Alert and oriented X 3 - Psych Psych: Normal mood, Normal affect Results - Vitals Vitals: Vital Signs - 24 hr 02/03/24 02/03/24 02/03/24 11:25 12:38 13:30 Temperature 35.8 C L 36.2 C L Heart Rate 72 68 70 Respiratory 18 16 16 Rate Blood Pressure 129/84 H 128/83 H O2 Saturation 98 99 02/03/24 13:50 Temperature 36.2 C L Heart Rate 70 Respiratory 16 Rate Blood Pressure 128/83 H O2 Saturation 99 Oxygen O2 Source Room air - Labs Labs: Laboratory Tests 02/03/24 02/03/24 02/03/24 11:45 11:45 11:45 WBC 4.9 RBC 4.62 Hgb 9.5 L Hct 33.9 L MCV 73.4 L MCH 20.6 L MCHC 28.0 L RDW 18.0 H Plt Count 283 MPV 8.1 Neut # (Auto) 3.3 Lymph # (Auto) 0.8 L [place] # (Auto) 0.6 Eos # (Auto) 0.1 Baso # (Auto) 0.0 Absolute Nucleated RBC 0.00 Nucleated RBC % 0.0 Manual Slide Review Indicated WBC Morphology NORMAL APPEARANCE Platelet Estimate NORMAL (130-450,000) Platelet Morphology NORMAL APPEARANCE RBC Morph Micro Appear 2+ OVALOCYTES Sodium 136 Potassium 4.5 Chloride 101 Carbon Dioxide 30 Anion Gap 5.0 L BUN 33 H Creatinine 1.4 H Estimated GFR (MDRD) 36 L Glucose 88 Calcium 10.0 Total Bilirubin 0.4 AST 19 ALT 20 Alkaline Phosphatase 49 B-Natriuretic Peptide 103 H Total Protein 6.6 Albumin 3.9 Globulin 2.7 Albumin/Globulin Ratio 1.4 Lipase 24 - Rads (name of study) cxr Relevant Findings:: Final report received, See rad report PD Medical Decision Making - ED course Complexity details: reviewed results, re-evaluated patient, considered differential, d/w patient ED course: I reviewed the patient's outpatient labs as well as today's labs. Her hemoglobin is stable. Appears to be a chronic anemia. Her recent laboratory testing showed significantly decreased iron stores. She has had iron infusions in the past and would likely benefit from this again. She does feel better after a DuoNeb treatment here. No significant increased work of breathing. No fevers. No changes in her cough. X-ray does not show any acute abnormalities. Patient is well-appearing, nontoxic. Ambulating up and down the emergency department without difficulty. Will have her follow-up with her doctor for further care. Patient counseled regarding signs and symptoms for which I believe and urgent re-evaluation would be necessary. Patient with good understanding of and agreement to plan and is comfortable going home at this time This document was made in part using voice recognition software. While efforts are made to proofread this document, sound alike and grammatical errors may occur. Departure - Departure Disposition: 01 Home, Self Care Clinical Impression: Anemia Qualifiers: Anemia type: iron deficiency Iron deficiency anemia type: unspecified iron deficiency Qualified Code(s): D50.9 - Iron deficiency anemia, unspecified COPD (chronic obstructive pulmonary disease) Qualifiers: COPD type: unspecified COPD Qualified Code(s): J44.9 - Chronic obstructive pulmonary disease, unspecified Condition: Good Instructions: ED Anemia Iron Deficiency, ED COPD Flare Follow-Up: Tamela Reynoso PA-C [Provider Admit Priv/Credential] - Within 1 week Comments: Please follow-up with your doctor for further care. Please return if you worsen. As we discussed you do have anemia but you are not at the level that needs transfusion. Your iron levels are also very low, it is likely that you would benefit significantly from an iron infusion again. Please contact your primary care provider regarding this. Forms: PCP List Discharge Date/Time: 02/03/24 13:51
[2024-02-03 12:05] LABS: ALBUMIN 3.9 g/dL (3.2-5.5); ALBUMIN/GLOBULIN RATIO 1.4 (1.0-2.2); BILIRUBIN,TOTAL 0.4 mg/dL (0.2-1.0); CREATININE 1.4 mg/dL (0.6-1.3); POTASSIUM 4.5 mmol/L (3.5-4.5); TOTAL PROTEIN 6.6 g/dL (6.4-8.9)
[2024-02-03 12:10] LABS: SLIDE REVIEW? Indicated
[2024-02-03 12:11] LABS: PLATELET ESTIMATE, MANUAL NORMAL (130-450,000) (NORMAL); PLATELET MORPHOLOGY NORMAL APPEARANCE (NORMAL); WBC MORPHOLOGY (MULTIPLE) NORMAL APPEARANCE (NORMAL)
[2024-02-03] MEDS: IPRATROPIUM/ALBUTEROL 3 ML NEB INH STA (12:34)
--- NOTE | 2024-02-03 13:21 | XRAY Report ---
PROCEDURE: Chest 2V INDICATIONS: dyspnea, COPd, lung CA TECHNIQUE: 2 views of the chest were acquired. COMPARISON: 10/04/2023. FINDINGS: Surgical changes and devices: None. Lungs and pleura: No pleural effusions or pneumothorax. There is prior right lobectomy. Chronic elev ation of right hemidiaphragm and decreased right lung volume is again seen. Possible calcified granul slava are again seen in right upper lung field.. Mediastinum: Mediastinal contours appear normal. Heart size is normal. Bones and chest wall: No suspicious bony lesions. Overlying soft tissues appear unremarkable. IMPRESSION: No acute cardiopulmonary process. Stable postsurgical changes from right lobectomy. No significant ch anges from previous study. Reviewed by: Tj Michel MD on 02/03/2024 1:20 PM PDT Approved by: Tj Michel MD on 02/03/2024 1:20 PM PDT Station ID: [id number]
[2024-02-03 13:54] VITALS: BP 128/83; O2SAT 99
== END 2024-02-03 13:51 | disposition home or self-care (01) ==
LOC: ED 11:09
DX: D50.9 Iron deficiency anemia, unspecified (principal); J44.9 Chronic obstructive pulmonary disease, unspecified
CPT/HCPCS: 36415; 80053; 83690; 83880; 85025; 94640; 94664; 99284

== ENCOUNTER 2024-02-14 13:59 | Emergency (ER) | payer MEDICARE, OTHER ==
--- NOTE | 2024-02-14 14:55 | ED Physician Documentation ---
History of Present Illness - Stated complaint Stated Complaint: PX,CANT MOVE LEGS - Chief complaint Chief Complaint: General - Additonal information Additional information: 83-year-old female with history of anemia, hypercholesterolemia, COPD, TIA, GI bleed presents emergency department for generalized body aches. Patient said that she had an iron transfusion yesterday but says that her iron levels have never been as low as they were yesterday prior to iron transfusion. Patient is concerned that maybe there was a medication error and today she is feeling generalized bodyaches throughout her whole body with some nausea vomiting. No fevers or chills.It is difficult to find 1 chief complaint she complains of pain with eye movement, headache, back pain, leg pain, and generalized discomfort.She does endorse some mild nausea no emesis which is where she has not taken any Tylenol at home for her generalized discomfort. 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 : None HEENT: None Psych: None Musculoskeletal: None Derm: None - Past Surgical History Past Surgical History: Yes /SMALL BOAT ENGINEER: Hysterectomy - Present Medications Home Medications: Ambulatory Orders Medication Instructions Recorded Confirmed Aspirin [Aspirin EC] 81 mg PO DAILY 09/22/22 02/14/24 Ezetimibe [Zetia] 10 mg PO DAILY 09/22/22 02/14/24 Rosuvastatin Calcium [Crestor] 20 mg PO DAILY 09/22/22 02/14/24 Spironolactone [Aldactone] 25 mg PO DAILY 09/22/22 02/14/24 Torsemide 10 mg PO DAILY 09/22/22 02/14/24 Omeprazole 20 mg PO DAILY 02/13/23 02/14/24 Acetaminophen [Tylenol] 650 mg PO Q6H PRN 02/14/24 02/14/24 Fluticasone/Umeclidin/Vilanter 1 applic IH DAILY 02/14/24 02/14/24 [Trelegy Ellipta 200-62.5-25] - Allergies Allergies/Adverse Reactions: Allergies Allergy/AdvReac Type Severity Reaction Status Date / Time bacitracin AdvReac Rash Verified 02/14/24 14:08 [From Neosporin ([id number])] gabapentin AdvReac Unknown Verified 02/14/24 14:08 neomycin AdvReac Rash Verified 02/14/24 14:08 [From Neosporin ([id number])] polymyxin B AdvReac Rash Verified 02/14/24 14:08 [From Neosporin ([id number])] - Social History Does the pt smoke?: No Smoking Status: Never smoker Does the pt drink ETOH?: No Does the pt have substance abuse?: No - Immunizations Immunizations are current?: Yes - POLST Patient has POLST: No PD ED PE NORMAL - Vitals Vital signs reviewed: Yes - General General: Alert and oriented X 3, No acute distress, Well developed/nourished - HEENT HEENT: Atraumatic, PERRL, EOMI - Neck Neck: Supple, no meningeal sign - Cardiac Cardiac: RRR, No murmur, No gallop, Strong equal pulses - Respiratory Respiratory: No respiratory distress, Clear bilaterally - Abdomen Abdomen: Normal bowel sounds, Soft, Non tender - Back Back: No CVA TTP, No spinal TTP - Derm Derm: Normal color, Warm and dry, No rash - Extremities Extremities: No deformity - Neuro Neuro: Alert and oriented X 3, progress man 2-12 intact, No motor deficit, No sensory deficit, Normal speech Results - Vitals Vitals: Vital Signs - 24 hr 02/14/24 02/14/24 02/14/24 14:05 14:37 16:08 Temperature 37.2 C Heart Rate 84 78 78 Respiratory 16 24 25 H Rate Blood Pressure 102/61 127/73 129/98 H O2 Saturation 99 97 95 02/14/24 17:18 Temperature Heart Rate 78 Respiratory 25 H Rate Blood Pressure 101/81 H O2 Saturation 96 Oxygen O2 Source Room air - Labs Labs: Laboratory Tests 02/14/24 02/14/24 02/14/24 14:55 14:55 16:40 WBC 5.7 RBC 4.66 Hgb 9.5 L Hct 34.0 L MCV 73.0 L MCH 20.4 L MCHC 27.9 L RDW 18.6 H Plt Count 248 MPV 8.2 Neut # (Auto) 4.9 Lymph # (Auto) 0.3 L [place] # (Auto) 0.6 Eos # (Auto) 0.0 Baso # (Auto) 0.0 Absolute Nucleated RBC 0.00 Nucleated RBC % 0.0 Manual Slide Review Indicated Platelet Estimate NORMAL (130-450,000) Platelet Morphology NORMAL APPEARANCE RBC Morph Micro Appear 1+ POLYCHROMASIA Sodium 136 Potassium 4.1 Chloride 105 Carbon Dioxide 26 Anion Gap 5.0 L BUN 19 Creatinine 0.9 Estimated GFR (MDRD) 60 L Glucose 93 Calcium 9.9 Magnesium 2.0 Total Bilirubin 0.4 AST 18 ALT 20 Alkaline Phosphatase 47 Total Protein 6.7 Albumin 3.8 Globulin 2.9 Albumin/Globulin Ratio 1.3 Lipase 15 Nasal Adenovirus (PCR) NOT DETECTED Nasal B. parapertussis DNA (PCR) NOT DETECTED Nasal Coronavir 229E PCR NOT DETECTED Nasal Coronavir HKU1 PCR NOT DETECTED Nasal Coronavir NL63 PCR NOT DETECTED Nasal Coronavir OC43 PCR NOT DETECTED Nasal Enterovir/Rhinovir PCR NOT DETECTED Nasal Influenza B PCR NOT DETECTED Nasal Influenza A PCR NOT DETECTED Nasal Parainfluen 1 PCR NOT DETECTED Nasal Parainfluen 2 PCR NOT DETECTED Nasal Parainfluen 3 PCR NOT DETECTED Nasal Parainfluen 4 PCR NOT DETECTED Nasal RSV (PCR) NOT DETECTED Nasal B.pertussis DNA PCR NOT DETECTED Nasal C.pneumoniae (PCR) NOT DETECTED Walker Human Metapneumo PCR NOT DETECTED Nasal M.pneumoniae (PCR) NOT DETECTED Nasal SARS-CoV-2 (PCR) NOT DETECTED PD Medical Decision Making - ED course ED course: 83-year-old female presents emergency department for generalized body discomfort and body aches. She has been swabbed for possible viral infection patient was informed that we will call her with results respiratory panel came back negative for any sort of respiratory infection. And I have any clear indication is what is causing this patient's generalized body aches and discomfort she usually told the triage nurse that she was unable to ambulate but she was seen ambulatory without any difficulty no signs of weakness steady on feet. Labs are complete she shows no leukocytosis she shows chronic mild anemia hemoglobin 9.5 which is within limits of patient's last lab draw early January. CMP does not show any electrolyte abnormalities which could be contributing to her body aches. We went ahead and gave her a liter of IV fluids as patient says that her mouth is really dry and she feels really dehydrated and we also gave her some Zofran and Tylenol to help with the mild nausea. Patient is was to have her iron levels repeat in a couple days and go back in for a repeat iron transfusion in a couple days patient was told to follow-up with primary care provider and continue with these iron transfusions per primary care provider. She is given strict ER return precautions Departure - Departure Disposition: 01 Home, Self Care Clinical Impression: Generalized body aches Iron deficiency anemia Qualifiers: Iron deficiency anemia type: other iron deficiency Qualified Code(s): D50.8 - Other iron deficiency anemias Leukopenia Qualifiers: Leukopenia type: unspecified Qualified Code(s): D72.819 - Decreased white blood cell count, unspecified Instructions: ED Muscle Aching Comments: Thank you for trusting us with your care. We have completed labs and overall your labs are very reassuring. We have sent a respiratory swab to the lab this will take up to 2 to 3 hours for the results to come back and I will call you if there are any positive results, if I do not call you that means that you are negative for all findings on the respiratory panel. I would go home take a warm bath, if you have absent so I would do an Epsom salt bath and I would soak in it for 30 to 40 minutes and get a good nights rest tonight while drinking plenty of fluids. We have given you some Tylenol here in the emergency department you can have up to 1000 mg of Tylenol every 8 hours for generalized body aches and discomfort. We have also given you a liter of IV fluids to help with your concerns of dehydration. Please help with your primary care provider about today's ER visit please come back to the emergency department if you are starting to notice any fevers or chills, or any other worsening concerning sy mptoms. Wishing you a speedy recovery. Forms: PCP List Discharge Date/Time: 02/14/24 17:19
[2024-02-14 15:03] LABS: BASOPHILS % (AUTO) 0.2 %; EOSINOPHILS % (AUTO) 0.2 %; HGB - HEMOGLOBIN 9.5 g/dL (12.0-16.0); LYMPHOCYTES # (AUTO) 0.3 10^3/uL (1.5-3.5); LYMPHOCYTES % (AUTO) 4.5 %; MEAN CORPUSCULAR HEMOGLOBIN 20.4 pg (27.0-31.0); MEAN CORPUSCULAR HGB CONC 27.9 g/dL (32.0-36.0); MEAN PLATELET VOLUME 8.2 fL (7.9-10.8); MONOCYTES # (AUTO) 0.6 10^3/uL (0.0-1.0); MONOCYTES % (AUTO) 9.6 %; NEUTROPHILS # (AUTO) 4.9 10^3/uL (1.5-6.6); NEUTROPHILS % (AUTO) 85.2 %; PLT - PLATELET COUNT 248 10^3/uL (130-450); RED BLOOD COUNT 4.66 10^6/uL (4.20-5.40); RED CELL DISTRIBUTION WIDTH 18.6 % (12.0-15.0); WHITE BLOOD COUNT 5.7 x10^3/uL (4.8-10.8)
[2024-02-14 15:21] LABS: SLIDE REVIEW? Indicated
[2024-02-14 15:26] LABS: ALBUMIN 3.8 g/dL (3.2-5.5); ALBUMIN/GLOBULIN RATIO 1.3 (1.0-2.2); BILIRUBIN,TOTAL 0.4 mg/dL (0.2-1.0); CALCIUM 9.9 mg/dL (8.5-10.3); CREATININE 0.9 mg/dL (0.6-1.3); POTASSIUM 4.1 mmol/L (3.5-4.5); TOTAL PROTEIN 6.7 g/dL (6.4-8.9)
[2024-02-14 15:41] LABS: PLATELET ESTIMATE, MANUAL NORMAL (130-450,000) (NORMAL); PLATELET MORPHOLOGY NORMAL APPEARANCE (NORMAL)
[2024-02-14] MEDS: SODIUM CHLORIDE 0.9% 1,000 ML IV ONE (16:34)
[2024-02-14] MEDS: ONDANSETRON 4 MG/2 ML VIAL IVP STA (16:34)
[2024-02-14] MEDS: ACETAMINOPHEN 325 MG TABLET PO STA (16:35)
[2024-02-14 17:24] VITALS: BP 101/81; O2SAT 96
[2024-02-14 17:39] LABS: B. PARAPERTUSSIS- RESP PCR PAN NOT DETECTED; B. PERTUSSIS- RESP PCR PANEL NOT DETECTED; C. PNEUMONIAE- RESP PCR PANEL NOT DETECTED; CORONAVIRUS 229E-RESP PCR NOT DETECTED; CORONAVIRUS HKU1-RESP PCR NOT DETECTED; CORONAVIRUS NL63-RESP PCR NOT DETECTED; CORONAVIRUS OC43-RESP PCR NOT DETECTED; HUMAN METAPNEUMOVIRUS NOT DETECTED; INFLUENZA A- RESP PCR PANEL NOT DETECTED; INFLUENZA B - RESP PCR PANEL NOT DETECTED; M. PNEUMONIAE- RESP PCR PANEL NOT DETECTED; PARAINFLUENZA VIRUS 1 NOT DETECTED; PARAINFLUENZA VIRUS 2 NOT DETECTED; PARAINFLUENZA VIRUS 3 NOT DETECTED; PARAINFLUENZA VIRUS 4 NOT DETECTED; RHINOVIRUS/ENTEROVIRUS NOT DETECTED; RSV- RESP PCR PANEL NOT DETECTED; SARS-CoV-2 -RESP PCR PANEL NOT DETECTED
== END 2024-02-14 17:19 | disposition home or self-care (01) ==
LOC: ED 13:59
DX: M79.10 Myalgia, unspecified site (principal); D50.8 Other iron deficiency anemias; D72.819 Decreased white blood cell count, unspecified; Z11.52 Encounter for screening for COVID-19
CPT/HCPCS: 36415; 80053; 83690; 83735; 85025; 87633; 96374; 99283; 99284; A9270

== ENCOUNTER 2024-03-12 15:01 | Outpatient (CLI) | payer MEDICARE, OTHER ==
[2024-03-12 15:15] LABS: BASOPHILS % (AUTO) 0.6 %; EOSINOPHILS # (AUTO) 0.1 10^3/uL (0.0-0.7); EOSINOPHILS % (AUTO) 1.3 %; HCT - HEMATOCRIT 36.4 % (37.0-47.0); HGB - HEMOGLOBIN 10.6 g/dL (12.0-16.0); LYMPHOCYTES # (AUTO) 0.9 10^3/uL (1.5-3.5); LYMPHOCYTES % (AUTO) 19.9 %; MEAN CORPUSCULAR HEMOGLOBIN 23.5 pg (27.0-31.0); MEAN CORPUSCULAR HGB CONC 29.1 g/dL (32.0-36.0); MEAN CORPUSCULAR VOLUME 80.7 fL (81.0-99.0); MEAN PLATELET VOLUME 9.3 fL (7.9-10.8); MONOCYTES # (AUTO) 0.3 10^3/uL (0.0-1.0); MONOCYTES % (AUTO) 7.1 %; NEUTROPHILS # (AUTO) 3.3 10^3/uL (1.5-6.6); NEUTROPHILS % (AUTO) 70.9 %; PLT - PLATELET COUNT 202 10^3/uL (130-450); RED BLOOD COUNT 4.51 10^6/uL (4.20-5.40); RED CELL DISTRIBUTION WIDTH 27.2 % (12.0-15.0); WHITE BLOOD COUNT 4.6 x10^3/uL (4.8-10.8)
[2024-03-12 15:29] LABS: SLIDE REVIEW? Indicated
[2024-03-12 15:51] LABS: FERRITIN 267.2 ng/mL (11.0-306.8)
[2024-03-12 15:59] LABS: PLATELET ESTIMATE, MANUAL NORMAL (130-450,000) (NORMAL); PLATELET MORPHOLOGY NORMAL APPEARANCE (NORMAL)
== END 2024-03-12 15:02 | disposition home or self-care (01) ==
LOC: LAB 15:01
PROVIDERS: ATTEND Nurse Practitioner
DX: D50.9 Iron deficiency anemia, unspecified (principal)
CPT/HCPCS: 36415; 82728; 83540; 84466; 85025

== ENCOUNTER 2024-05-17 13:06 | Outpatient (CLI) | payer MEDICARE, OTHER ==
[2024-05-17 13:20] LABS: BASOPHILS % (AUTO) 0.4 %; EOSINOPHILS % (AUTO) 0.8 %; HCT - HEMATOCRIT 42.9 % (37.0-47.0); LYMPHOCYTES % (AUTO) 20.1 %; MEAN CORPUSCULAR HEMOGLOBIN 26.3 pg (27.0-31.0); MEAN CORPUSCULAR HGB CONC 30.3 g/dL (32.0-36.0); MEAN CORPUSCULAR VOLUME 86.7 fL (81.0-99.0); MEAN PLATELET VOLUME 9.2 fL (7.9-10.8); MONOCYTES # (AUTO) 0.5 10^3/uL (0.0-1.0); MONOCYTES % (AUTO) 9.3 %; NEUTROPHILS # (AUTO) 3.5 10^3/uL (1.5-6.6); NEUTROPHILS % (AUTO) 69.2 %; PLT - PLATELET COUNT 249 10^3/uL (130-450); RED BLOOD COUNT 4.95 10^6/uL (4.20-5.40); RED CELL DISTRIBUTION WIDTH 18.4 % (12.0-15.0)
[2024-05-17 13:38] LABS: % IRON SATURATION 10 % (20-50); ALBUMIN 4.3 g/dL (3.2-5.5); ALBUMIN/GLOBULIN RATIO 1.4 (1.0-2.2); ALKALINE PHOSPHATASE 51 IU/L (42-121); ALT ALANINE AMINOTRANSFERASE 29 IU/L (10-60); AST ASPARTATE AMINOTRANSFERASE 26 IU/L (10-42); BILIRUBIN,TOTAL 0.7 mg/dL (0.2-1.0); BUN - BLOOD UREA NITROGEN 20 mg/dL (6-20); CALCIUM 9.8 mg/dL (8.5-10.3); CARBON DIOXIDE - CO2 30 mmol/L (21-32); CHLORIDE 101 mmol/L (101-111); CHOL/HDL RATIO 1.9 (<4.4); CHOLESTEROL 143 mg/dL; CREATININE 1.1 mg/dL (0.6-1.3); GFR - MDRD 47 (>89); GLUCOSE 88 mg/dL (74-104); HDL CHOLESTEROL 74 mg/dL; IRON 39 ug/dL (50-212); LDL CHOLESTEROL,CALCULATED 53 mg/dL; LDL/HDL RATIO 0.7 (<4.4); POTASSIUM 4.7 mmol/L (3.5-4.5); SODIUM 137 mmol/L (135-145); TOTAL IRON BINDING CAPACITY 395 ug/dL (250-450); TOTAL PROTEIN 7.4 g/dL (6.4-8.9); TRANSFERRIN 282 mg/dL (203-362); TRIGLYCERIDES 78 mg/dL; VLDL CHOLESTEROL 16 mg/dL
[2024-05-17 13:50] LABS: THYROID STIMULATING HORMONE 3.16 uIU/mL (0.34-5.60)
[2024-05-17 13:56] LABS: FERRITIN 53.4 ng/mL (11.0-306.8)
--- NOTE | 2024-05-17 20:59 | XRAY Report ---
PROCEDURE: Chest 2V INDICATIONS: DYSPNEA ON EXERTION TECHNIQUE: 2 views of the chest were acquired. COMPARISON: CXR 02/03/2024, 10/04/2023. CT chest 06/13/2023. FINDINGS: Surgical changes and devices: Suture material in the right upper lung. Lungs and pleura: No pneumothorax. Suspect small chronic right pleural effusion. Right upper lobe pu lmonary nodules which are likely calcified granulomas and are unchanged. Peaking at the right hemidia phragm. Mediastinum: Mediastinal contours appear normal. Heart size is normal. Bones and chest wall: No suspicious bony lesions. Overlying soft tissues appear unremarkable. IMPRESSION: No significant interval change. Postoperative changes in the right lung. Suspect small chronic right pleural effusion. Reviewed by: Gerson Frank MD on 05/17/2024 8:58 PM PDT Approved by: Gerson Frank MD on 05/17/2024 8:58 PM PDT Station ID: [id number]
== END 2024-05-17 13:07 | disposition home or self-care (01) ==
LOC: LAB 13:06
PROVIDERS: ATTEND Nurse Practitioner Family
DX: I50.9 Heart failure, unspecified (principal); G47.00 Insomnia, unspecified; R01.1 Cardiac murmur, unspecified; J44.1 Chronic obstructive pulmonary disease with (acute) exacerbation; R06.09 Other forms of dyspnea; D50.9 Iron deficiency anemia, unspecified; R91.8 Other nonspecific abnormal finding of lung field
CPT/HCPCS: 36415; 80053; 80061; 82728; 83540; 83721; 84443; 84466; 85025

== ENCOUNTER 2024-06-17 08:00 | Outpatient (CLI) | payer MEDICARE, OTHER | END 2024-06-17 23:59 | disposition home or self-care (01) | LOC: LAB 08:00 | DX: Z01.89 Encounter for other specified special examinations (principal) | CPT/HCPCS: 36415 ==

== ENCOUNTER 2024-08-01 10:54 | Emergency (ER) | payer MEDICARE, OTHER ==
[2024-08-01 11:22] LABS: BASOPHILS % (AUTO) 0.5 %; EOSINOPHILS # (AUTO) 0.1 10^3/uL (0.0-0.7); EOSINOPHILS % (AUTO) 1.3 %; HCT - HEMATOCRIT 39.7 % (37.0-47.0); HGB - HEMOGLOBIN 12.3 g/dL (12.0-16.0); LYMPHOCYTES # (AUTO) 0.8 10^3/uL (1.5-3.5); LYMPHOCYTES % (AUTO) 14.9 %; MEAN CORPUSCULAR HEMOGLOBIN 27.3 pg (27.0-31.0); MEAN CORPUSCULAR VOLUME 88.2 fL (81.0-99.0); MEAN PLATELET VOLUME 9.2 fL (7.9-10.8); MONOCYTES # (AUTO) 0.5 10^3/uL (0.0-1.0); MONOCYTES % (AUTO) 8.1 %; NEUTROPHILS # (AUTO) 4.2 10^3/uL (1.5-6.6); NEUTROPHILS % (AUTO) 74.8 %; PLT - PLATELET COUNT 230 10^3/uL (130-450); RED CELL DISTRIBUTION WIDTH 14.3 % (12.0-15.0); WHITE BLOOD COUNT 5.6 x10^3/uL (4.8-10.8)
[2024-08-01 11:40] LABS: ALBUMIN 4.1 g/dL (3.2-5.5); ALBUMIN/GLOBULIN RATIO 1.6 (1.0-2.2); BILIRUBIN,TOTAL 0.6 mg/dL (0.2-1.0); CALCIUM 9.8 mg/dL (8.5-10.3); CREATININE 1.1 mg/dL (0.6-1.3); TOTAL PROTEIN 6.7 g/dL (6.4-8.9)
--- NOTE | 2024-08-01 11:49 | XRAY Report ---
PROCEDURE: Chest 2V INDICATIONS: cough TECHNIQUE: 2 views of the chest were acquired. COMPARISON: 05/17/2024. FINDINGS: Surgical changes and devices: Remote right lumpectomy. Lungs and pleura: No pleural effusions or pneumothorax. Lungs are clear. Volume loss, right hemitho rax with mild mediastinal shift to the right. Mediastinum: Mediastinal contours appear normal. Heart size is normal. Bones and chest wall: No suspicious bony lesions. Overlying soft tissues appear unremarkable. IMPRESSION: Remote right lumpectomy. No acute pulmonary process. Reviewed by: Layo Young MD on 08/01/2024 11:47 AM PDT Approved by: Layo Young MD on 08/01/2024 11:47 AM PDT Station ID: [id number]
--- NOTE | 2024-08-01 14:16 | ED Physician Documentation ---
History of Present Illness - Stated complaint Stated Complaint: RIB PX,COUGH - Chief complaint Chief Complaint: Resp - Additonal information Additional information: 84-year-old female with history of high cholesterol, COPD, TIA, GI bleed, right lung cancer 2 years ago presents emerged part for right anterior chest pain. Patient says this has been ongoing for a while she went to her primary care provider about this but unfortunately no imaging was complete. She says that it has been getting worse over time to the point where it is really hard for her to take a deep breath there is significant pain with coughing and patient feels like there is something wrong. 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: Hysterectomy - Present Medications Home Medications: Ambulatory Orders Medication Instructions Recorded Confirmed Aspirin [Aspirin EC] 81 mg PO DAILY 09/22/22 05/06/24 Ezetimibe [Zetia] 10 mg PO DAILY 09/22/22 05/06/24 Rosuvastatin Calcium [Crestor] 20 mg PO DAILY 09/22/22 05/06/24 Spironolactone [Aldactone] 25 mg PO DAILY 09/22/22 05/06/24 Torsemide 10 mg PO DAILY 09/22/22 05/06/24 Omeprazole 20 mg PO DAILY 02/13/23 05/06/24 Acetaminophen [Tylenol] 650 mg PO Q6H PRN 02/14/24 05/06/24 Fluticasone/Umeclidin/Vilanter 1 applic IH DAILY 02/14/24 05/06/24 [Trelegy Ellipta 200-62.5-25] - Allergies Allergies/Adverse Reactions: Allergies Allergy/AdvReac Type Severity Reaction Status Date / Time bacitracin AdvReac Rash Verified 06/26/24 09:05 [From Neosporin ([id number])] gabapentin AdvReac Unknown Verified 06/26/24 09:05 neomycin AdvReac Rash Verified 06/26/24 09:05 [From Neosporin ([id number]-xub-[id number])] polymyxin B AdvReac Rash Verified 06/26/24 09:05 [From Neosporin ([id number])] - Social History Does the pt smoke?: No Smoking Status: Never smoker Does the pt drink ETOH?: No Does the pt have substance abuse?: No - Immunizations Immunizations are current?: Yes - POLST Patient has POLST: No PD ED PE NORMAL - Vitals Vital signs reviewed: Yes - General General: Alert and oriented X 3, No acute distress, Well developed/nourished - HEENT HEENT: Atraumatic, PERRL, EOMI - Cardiac Cardiac: RRR - Respiratory Respiratory: Other (right lung ronchi) - Abdomen Abdomen: Normal bowel sounds, Soft, Non tender, Non distended, No organomegaly, Other Results - Vitals Vitals: Vital Signs - 24 hr 08/01/24 08/01/24 10:58 16:47 Temperature 36.8 C 36.5 C Heart Rate 84 80 Respiratory 20 16 Rate Blood Pressure 158/98 H 130/88 H O2 Saturation 96 98 Oxygen O2 Source Room air - Labs Labs: Laboratory Tests 08/01/24 08/01/24 11:18 11:18 WBC 5.6 RBC 4.50 Hgb 12.3 Hct 39.7 MCV 88.2 MCH 27.3 MCHC 31.0 L RDW 14.3 Plt Count 230 MPV 9.2 Neut # (Auto) 4.2 Lymph # (Auto) 0.8 L [place] # (Auto) 0.5 Eos # (Auto) 0.1 Baso # (Auto) 0.0 Absolute Nucleated RBC 0.00 Nucleated RBC % 0.0 Sodium 135 Potassium 4.0 Chloride 100 L Carbon Dioxide 29 Anion Gap 6.0 BUN 20 Creatinine 1.1 Estimated GFR (MDRD) 47 L Glucose 89 Calcium 9.8 Total Bilirubin 0.6 AST 17 ALT 18 Alkaline Phosphatase 52 Total Protein 6.7 Albumin 4.1 Globulin 2.6 Albumin/Globulin Ratio 1.6 Lipase 11 - Rads (name of study) Chest x-ray Relevant Findings:: Final report received, EMP independent interpretation of test, Other (Remote right lumpectomy no acute pulmonary process) Chest CT with Relevant Findings:: Final report received, EMP independent interpretation of test, Other (Chronic post right lobectomy changes are seen in your right hemithorax with stable appearance of right middle lobe collapse no new or enlarging pulmonary nodule seen. Small right pleural effusion unchanged no pneumothorax) PD Medical Decision Making - ED course ED course: 84-year-old female presents emergency department for right anterior rib pain. Patient says that sometimes she feels like a hard lump is coming out of her rib region and lately she has been noticing with inhalation is been getting more painful. There is no pain or tenderness with palpation to that region. Chest x-ray was initially complete for further evaluation and did not reveal any acute abnormal findings so we went ahead with a chest CT with contrast for further evaluation which revealed chronic post right lobectomy changes seen in right hemithorax with stable appearance of right middle lobe collapse no new or enlarging pulmonary nodules visualized. Small right pleural effusion unchanged or decreased compared to prior study. No pneumothorax. No mediastinal or hilar lymphadenopathy no pericardial effusion. No pulmonary emboli. Patient was quite reassured of these findings her labs are also found to be unremarkable. Patient was overall well-appearing nontoxic and she is informed to follow-up with her primary care provider for further outpatient imaging and workup of this pain that she is experiencing. Return precautions given all questions answered patient safe for discharge at this time. Departure - Departure Disposition: 01 Home, Self Care Clinical Impression: Rib pain on right side Instructions: Abdominal Pain Comments: Thank you for trusting us with your care, we have evaluated you for your right lower rib pain. We have completed a CT scan and we are not seeing any acute abnormalities or findings at this point in time. Your labs are also quite reassuring. At this point in time we are not entirely certain what is causing the pain that you are experiencing but I would follow-up with your primary care provider for further evaluation and possible outpatient ultrasound for further evaluation. Please come back to the ER if your pain is getting more severe if you are starting to develop any fevers or chills or any other concerning emergent symptoms. Forms: PCP List Discharge Date/Time: 08/01/24 16:47
[2024-08-01] MEDS ORDERED: iohexoL-300 100 ML VIAL ONE (14:20)
[2024-08-01] MEDS: iohexoL-300 100 ML VIAL IVP ONE (15:00)
--- NOTE | 2024-08-01 15:41 | CT Report ---
PROCEDURE: Chest W INDICATIONS: right anterior chest pain with inhalation CONTRAST: 100ML [id number] TECHNIQUE: After the administration of intravenous contrast, a CT scan of the chest was performed. Images were recorded and evaluated at appropriate window settings. Reformats: axial MIP of the chest, coronal and sagittal. For radiation dose reduction, the following was used: automated exposure control, adjustme nt of mA and/or kV according to patient size. COMPARISON: 06/13/2023 FINDINGS: Image quality: Diagnostic. Chest wall and lower neck: No thyroid nodule which requires sonographic follow up. No breast mass. No axillary or supraclavicular adenopathy by size. Lungs and pleura: There is moderate centrilobular emphysema. Calcified granulomas are seen in anterio r aspect of right upper lung field and measures up to 8 mm in size unchanged from prior study. 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 Small right pleural effusion is again seen not significantl y changed from prior study. Atelectasis is again seen along anterior medial border of right hemithora x involving right middle lobe not significantly changed in overall appearance compared to 2022 study. No suspicious pulmonary nodule. No pneumothorax. Central and peripheral airway is patent. Mediastinum: Mediastinal shift to the right is again seen and unchanged. Heart size is normal. No per icardial effusion. No large vessel abnormality. No mediastinal adenopathy by size criteria. Bones: No aggressive osseous abnormality. Upper Abdomen: Unremarkable. IMPRESSION: 1. 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 No new or enlarging pulmonary nodules are seen. Small right pleural effus ion unchanged or decreased compared to prior study. No pneumothorax. 2. No mediastinal or hilar lymphadenopathy by size criteria. No pericardial effusion. No thoracic aor tic aneurysm or gross dissection. No central pulmonary embolism. Reviewed by: Tj Michel MD on 08/01/2024 3:40 PM PDT Approved by: Tj Michel MD on 08/01/2024 3:40 PM PDT Station ID: [id number]
[2024-08-01 16:57] VITALS: BP 130/88; O2SAT 98
== END 2024-08-01 16:47 | disposition home or self-care (01) ==
LOC: ED 10:54
DX: R07.81 Pleurodynia (principal)
CPT/HCPCS: 36415; 71046; 71260; 80053; 83690; 85025; 99283; 99284; Q9967